=== PATIENT | female | born 1950 | race Hispanic/Latino ===

== ENCOUNTER 2017-12-08 07:49 | Emergency (ER) | payer OTHER, MEDICARE ==
[~2017-12-08 07:49] MED LIST: AEC81 PO; BIOT10005 PO; CARV25TA PO; FERR325T22 PO; INSU3INS5 SQ; METF10004 PO; MV,C1TAB21 PO; OMEP20TA25 PO; PREG75 PO
[2017-12-08] MEDS ORDERED: KETOROLAC TROMETHAMINE 15MG/ML ONE (08:24)
[2017-12-08] MEDS ORDERED: ONDANSETRON HCL 4 MG/2 ML VIAL ONE (08:24)
[2017-12-08] MEDS ORDERED: MORPHINE SULFATE 8 MG/ML VIAL ONE (08:25)
[2017-12-08 08:30] LABS: BASOPHILS % (AUTO) 5.7 % (0.0-5.0); EOSINOPHILS % (AUTO) 1.6 % (0.0-8.0); MEAN CORPUSCULAR HEMOGLOBIN 32.4 pg (27.0-33.0); MEAN CORPUSCULAR HGB CONC 34.1 g/dL (32.0-36.0); MONOCYTES % (AUTO) 7.4 % (3.0-13.0); NEUTROPHILS % (AUTO) 77.9 % (40.0-77.0); PLATELET COUNT (AUTO) 356 K/uL (130-400); RED BLOOD CELL COUNT(AUTO) 3.89 MIL/uL (4.00-5.50); WHITE BLOOD COUNT (AUTO) 12.2 K/uL (4.8-10.8)
[2017-12-08 08:33] LABS: LYMPHOCYTES % (AUTO) 7.4 % (21.0-51.0)
[2017-12-08 08:35] LABS: CREATININE 1.4 mg/dL (0.5-1.5); POTASSIUM 3.6 mmol/L (3.5-5.1)
[2017-12-08 08:35] LABS: APPEARANCE,URINE CLEAR (CLEAR); BILIRUBIN,URINE NEGATIVE (NEGATIVE); COLOR,URINE YELLOW (YELLOW); GLUCOSE, URINE (UA) >=1000 mg/dL (NEGATIVE); KETONES,URINE NEGATIVE (NEGATIVE); LEUKOCYTE ESTERASE ,URINE NEGATIVE (NEGATIVE); NITRATE,URINE NEGATIVE (NEGATIVE); OCCULT BLOOD,URINE NEGATIVE (NEGATIVE); PH,URINE 6.5 (5.0-8.0); PROTEIN,URINE 30 (NEGATIVE); UROBILINOGEN,URINE 0.2 mg/dL (0.2-1.0)
[2017-12-08 08:41] LABS: ALBUMIN 3.8 g/dL (3.5-5.0); BILIRUBIN,TOTAL 0.4 mg/dL (0.2-1.0); TOTAL PROTEIN, SERUM 8.5 g/dL (6.0-8.3)
[2017-12-08 09:18] LABS: BACTERIA,URINE None Seen /HPF (None Seen); RBC,URINE None Seen /HPF (0-1); SQUAMOUS EPITHELIAL CELL,UR Rare /LPF (0-2); WBC,URINE None Seen /HPF (0-1)
[2017-12-08] MEDS ORDERED: ORPHENADRINE CITRATE 30 MG/ML ML ONE (09:24)
== END 2017-12-08 10:42 | disposition home or self-care (01) ==
LOC: EDH 07:49
DX: M54.32 Sciatica, left side (principal); E11.9 Type 2 diabetes mellitus without complications; I10 Essential (primary) hypertension; Z79.4 Long term (current) use of insulin
CPT/HCPCS: 36415; 72170; 80053; 81001; 85025; 96372; 96374; 96375; 99285; J1885; J2270; J2360; J2405

== ENCOUNTER 2018-01-19 21:03 | Observation (INO) | payer OTHER, MEDICARE ==
[~2018-01-19] VITALS: Ht 160 cm; Wt 72.2 kg
[2018-01-19] MEDS ORDERED: ASPIRIN 325 MG TABLET ONE (21:09)
[2018-01-19 21:32] LABS: BASOPHILS % (AUTO) 0.5 % (0.0-5.0); EOSINOPHILS % (AUTO) 2.2 % (0.0-8.0); HEMATOCRIT 34.5 % (36-48); LYMPHOCYTES % (AUTO) 40.6 % (21.0-51.0); MEAN CORPUSCULAR HEMOGLOBIN 33.3 pg (27.0-33.0); MEAN CORPUSCULAR HGB CONC 34.9 g/dL (32.0-36.0); MEAN CORPUSCULAR VOLUME 95.5 fL (79-99); MONOCYTES % (AUTO) 9.2 % (3.0-13.0); NEUTROPHILS % (AUTO) 47.5 % (40.0-77.0); NUCLEATED RED BLOOD CELLS 0.2 % (0.0-0.19); PLATELET COUNT (AUTO) 371 K/uL (130-400); RED BLOOD CELL COUNT(AUTO) 3.61 MIL/uL (4.00-5.50); RED CELL DISTRIBUTION WIDTH 14.1 % (11.0-15.5); WHITE BLOOD COUNT (AUTO) 11.4 K/uL (4.8-10.8)
[2018-01-19 21:47] LABS: INR 0.95 (0.85-1.15); PARTIAL THROMBOPLASTIN TIME 23.8 SEC (26.3-35.5)
[2018-01-19 21:52] LABS: CREATININE 1.8 mg/dL (0.5-1.5); POTASSIUM 3.8 mmol/L (3.5-5.1)
[2018-01-19 22:00] LABS: B-TYPE NATRIURETIC PEPTIDE 30 pg/mL (0-100)
[2018-01-19 22:13] LABS: ALBUMIN 3.7 g/dL (3.5-5.0); BILIRUBIN,TOTAL 0.3 mg/dL (0.2-1.0); CREATINE KINASE MB 0.9 ng/mL (0.5-3.6); TOTAL PROTEIN, SERUM 8.3 g/dL (6.0-8.3)
[2018-01-20] MEDS ORDERED: ONDANSETRON HCL 4 MG/2 ML VIAL IV PRN (02:00)
[2018-01-20] MEDS ORDERED: ACETAMINOPHEN 325 MG TAB PO PRN (02:00)
[2018-01-20] MEDS ORDERED: MORPHINE SULFATE 2 MG/ML 1ML SYG IV PRN (02:00)
[2018-01-20] MEDS ORDERED: HYDRALAZINE HCL 20 MG/ML VIAL IV PRN (02:00)
[2018-01-20] MEDS ORDERED: NITROGLYCERIN 0.4 MG SL TAB SL PRN ×2 (02:00→15:00)
[2018-01-20] MEDS ORDERED: ZOLPIDEM TARTRATE 5 MG TAB PO PRN (02:00)
[2018-01-20 06:07] LABS: BASOPHILS % (AUTO) 0.6 % (0.0-5.0); EOSINOPHILS % (AUTO) 3.1 % (0.0-8.0); HEMATOCRIT 31.2 % (36-48); LYMPHOCYTES % (AUTO) 44.5 % (21.0-51.0); MEAN CORPUSCULAR HEMOGLOBIN 32.9 pg (27.0-33.0); MEAN CORPUSCULAR VOLUME 94.2 fL (79-99); MONOCYTES % (AUTO) 9.2 % (3.0-13.0); NEUTROPHILS % (AUTO) 42.6 % (40.0-77.0); NUCLEATED RED BLOOD CELLS 0.1 % (0.0-0.19); PLATELET COUNT (AUTO) 366 K/uL (130-400); RED BLOOD CELL COUNT(AUTO) 3.32 MIL/uL (4.00-5.50); RED CELL DISTRIBUTION WIDTH 13.8 % (11.0-15.5); WHITE BLOOD COUNT (AUTO) 9.5 K/uL (4.8-10.8)
[2018-01-20 06:33] LABS: CREATININE 1.4 mg/dL (0.5-1.5); MAGNESIUM 1.6 mg/dL (1.80-2.40); PHOSPHORUS 3.5 mg/dL (2.5-4.9); POTASSIUM 3.5 mmol/L (3.5-5.1); THYROID STIMULATING HORMONE 2.2 uIU/mL (0.36-3.74)
[2018-01-20 06:53] LABS: CREATINE KINASE MB < 0.5 ng/mL (0.5-3.6); CREATINE KINASE, TOTAL 157 U/L (21-232); MYOGLOBIN 50 ng/mL (10-92); TROPONIN I < 0.04 ng/mL (0.00-0.06)
[2018-01-20] MEDS ORDERED: ASPIRIN 81MG TAB.CHEW PO SCH (09:00)
[2018-01-20] MEDS ORDERED: CLOPIDOGREL BISULFATE 75 MG TAB PO SCH (09:00)
[2018-01-20] MEDS ORDERED: CARVEDILOL 3.125 MG TABLET PO SCH (09:00)
[2018-01-20] MEDS ORDERED: ENOXAPARIN SODIUM 40 MG/0.4 ML SYRINGE SQ SCH (09:00)
[2018-01-20] MEDS ORDERED: PANTOPRAZOLE SODIUM 40 MG TABLET.DR PO SCH (09:00)
[2018-01-20] MEDS ORDERED: ASPIRIN 81MG TAB.CHEW ONE (10:31)
[2018-01-20] MEDS ORDERED: MAGNESIUM 2GM PREMIX 50ML 50 ML IV PRN (12:00)
[2018-01-20] MEDS ORDERED: ENOXAPARIN SODIUM 40 MG/0.4 ML SYRINGE SQ ONE (12:27)
[2018-01-20] MEDS ORDERED: CLOPIDOGREL BISULFATE 75 MG TAB ONE (12:27)
[2018-01-20] MEDS ORDERED: CARVEDILOL 3.125 MG TABLET PO ONE (12:28)
[2018-01-20] MEDS: 1/2 NORMAL SALINE 1,000 ML IV SCH ×2 (13:23→15:20)
[2018-01-20 13:26] VITALS: BP 168/95
[2018-01-20] MEDS ORDERED: FURO20TA4 PO (13:26)
[2018-01-20] MEDS ORDERED: CHOL200074 PO (13:26)
[2018-01-20] MEDS ORDERED: INSU3INS5 SQ (13:26)
[2018-01-20] MEDS ORDERED: ICOS1CAP PO (13:26)
[2018-01-20] MEDS ORDERED: PRAV10TA39 PO (13:26)
[2018-01-20] MEDS ORDERED: AMLO1CAP11 PO (13:26)
[2018-01-20] MEDS ORDERED: EMPA10TA PO (13:26)
[2018-01-20 13:43] LABS: CREATINE KINASE MB < 0.5 ng/mL (0.5-3.6); CREATINE KINASE, TOTAL 139 U/L (21-232); MYOGLOBIN 53 ng/mL (10-92); TROPONIN I < 0.04 ng/mL (0.00-0.06)
[2018-01-20] MEDS ORDERED: PREGABALIN 75 MG CAPSULE PO PRN (15:45)
[2018-01-20 16:00] VITALS: BP 146/77
[2018-01-20] MEDS ORDERED: METFORMIN HCL 500 MG TABLET PO SCH (17:00)
[2018-01-20] MEDS ORDERED: CARVEDILOL 25 MG TABLET PO SCH ×2 (21:00)
[2018-01-21] MEDS ORDERED: ATORVASTATIN CALCIUM 20 MG TABLET PO SCH (09:00)
[2018-01-21] MEDS ORDERED: FUROSEMIDE 20 MG TABLET PO SCH (09:00)
[2018-01-21] MEDS ORDERED: AMLODIPINE-BENAZEPRIL 5-10 MG PO SCH (09:00)
[2018-01-21] MEDS ORDERED: ASPIRIN 81 MG EC TAB PO SCH (09:00)
[2018-01-21] MEDS ORDERED: PANTOPRAZOLE SODIUM 40 MG TABLET.DR PO SCH (09:00)
== END 2018-01-20 17:50 | disposition home or self-care (01) ==
LOC: EDH 21:03 → INTOOBSV 01-20 00:40 → EDHIP 01-20 00:40 → 2CH 01-20 11:21
PROVIDERS: ADMIT Family Medicine; ATTEND Family Medicine
DX: I21.4 Non-ST elevation (NSTEMI) myocardial infarction (principal); I10 Essential (primary) hypertension; E78.5 Hyperlipidemia, unspecified; E11.65 Type 2 diabetes mellitus with hyperglycemia; E66.01 Morbid (severe) obesity due to excess calories; K21.9 Gastro-esophageal reflux disease without esophagitis; K74.60 Unspecified cirrhosis of liver; Z82.0 Family history of epilepsy and other diseases of the nervous system; Z82.3 Family history of stroke; Z82.49 Family history of ischemic heart disease and other diseases of the circulatory system; Z82.5 Family history of asthma and other chronic lower respiratory diseases; Z83.3 Family history of diabetes mellitus; Z90.81 Acquired absence of spleen; Z86.19 Personal history of other infectious and parasitic diseases; Z90.49 Acquired absence of other specified parts of digestive tract; Z79.4 Long term (current) use of insulin; Z79.82 Long term (current) use of aspirin
CPT/HCPCS: 36415 ×2; 71045; 80048; 80053; 80061; 82550 ×3; 82553 ×3; 82948; 83735; 83874 ×3; 83880; 84100; 84443; 84484 ×3; 85025 ×2; 85610; 85730; 93005 ×3; 93306; 96365; 96375; 99285; A4510; G0378 ×17; J1650; J3475

== ENCOUNTER 2018-03-19 21:41 | Emergency (ER) | payer MEDICARE, OTHER ==
[~2018-03-19 21:41] MED LIST changes: +AMLO1CAP11 PO; -BIOT10005 PO; +CHOL200074 PO; +EMPA10TA PO; -FERR325T22 PO; +FURO20TA4 PO; +ICOS1CAP PO; +PRAV10TA39 PO
[2018-03-19 22:28] LABS: BASOPHILS % (AUTO) 0.9 % (0.0-5.0); EOSINOPHILS % (AUTO) 1.9 % (0.0-8.0); HEMATOCRIT 34.8 % (36-48); LYMPHOCYTES % (AUTO) 40.3 % (21.0-51.0); MEAN CORPUSCULAR HEMOGLOBIN 33.6 pg (27.0-33.0); MEAN CORPUSCULAR HGB CONC 35.7 g/dL (32.0-36.0); MEAN CORPUSCULAR VOLUME 94.3 fL (79-99); MONOCYTES % (AUTO) 9.6 % (3.0-13.0); NEUTROPHILS % (AUTO) 47.3 % (40.0-77.0); NUCLEATED RED BLOOD CELLS 0.1 % (0.0-0.19); PLATELET COUNT (AUTO) 361 K/uL (130-400); RED BLOOD CELL COUNT(AUTO) 3.69 MIL/uL (4.00-5.50); RED CELL DISTRIBUTION WIDTH 14.1 % (11.0-15.5); WHITE BLOOD COUNT (AUTO) 9.2 K/uL (4.8-10.8)
[2018-03-19] MEDS ORDERED: INSULIN HUMULIN R 100 UNIT/ML 3ML ONE (22:46)
[2018-03-19 22:47] LABS: ALBUMIN 3.6 g/dL (3.5-5.0); BILIRUBIN,TOTAL 0.3 mg/dL (0.2-1.0); CREATININE 1.5 mg/dL (0.5-1.5); POTASSIUM 4.2 mmol/L (3.5-5.1); TOTAL PROTEIN, SERUM 8.4 g/dL (6.0-8.3)
[2018-03-19 22:51] LABS: B-TYPE NATRIURETIC PEPTIDE 72 pg/mL (0-100)
[2018-03-19 22:54] LABS: APPEARANCE,URINE Clear (CLEAR); BILIRUBIN,URINE Negative (NEGATIVE); COLOR,URINE Yellow (YELLOW); GLUCOSE, URINE (UA) >=1000 mg/dL (NEGATIVE); KETONES,URINE Negative (NEGATIVE); LEUKOCYTE ESTERASE ,URINE Negative (NEGATIVE); NITRATE,URINE Negative (NEGATIVE); OCCULT BLOOD,URINE Negative (NEGATIVE); PROTEIN,URINE POS 1+ (NEGATIVE); UROBILINOGEN,URINE 0.2 mg/dL (0.2-1.0)
[2018-03-19 23:05] LABS: BACTERIA,URINE Few /HPF (None Seen)
[2018-03-20] MEDS ORDERED: INSULIN HUMULIN R 100 UNIT/ML 3ML ONE (00:13)
== END 2018-03-20 00:49 | disposition home or self-care (01) ==
LOC: EDH 21:41
DX: E11.65 Type 2 diabetes mellitus with hyperglycemia (principal); I10 Essential (primary) hypertension; Z86.19 Personal history of other infectious and parasitic diseases; Z90.49 Acquired absence of other specified parts of digestive tract; Z79.4 Long term (current) use of insulin
CPT/HCPCS: 36415; 80053; 81001; 82948 ×4; 83605; 83690; 83880; 84484; 85025; 93005; 96361; 96374; 96376; 99285; J1815 ×2

== ENCOUNTER 2018-08-30 13:55 | Emergency (ER) | payer OTHER ==
[~2018-08-30 13:55] MED LIST changes: +METF-446 PO; -METF10004 PO
[2018-08-30] MEDS ORDERED: KETOROLAC TROMETHAMINE 30MG/ML ONE (14:24)
[2018-08-30] MEDS ORDERED: CYCLOBENZAPRINE HCL 10 MG TABLET ONE (14:25)
[2018-08-30 15:42] LABS: BASOPHILS % (AUTO) 0.3 % (0.0-5.0); EOSINOPHILS % (AUTO) 1.6 % (0.0-8.0); HEMATOCRIT 34.2 % (36-48); LYMPHOCYTES % (AUTO) 28.8 % (21.0-51.0); MEAN CORPUSCULAR HEMOGLOBIN 32.1 pg (27.0-33.0); MEAN CORPUSCULAR VOLUME 94.6 fL (79-99); NEUTROPHILS % (AUTO) 61.3 % (40.0-77.0); PLATELET COUNT (AUTO) 352 K/uL (130-400); RED BLOOD CELL COUNT(AUTO) 3.62 MIL/uL (4.00-5.50); RED CELL DISTRIBUTION WIDTH 14.3 % (11.0-15.5); WHITE BLOOD COUNT (AUTO) 11.7 K/uL (4.8-10.8)
[2018-08-30 15:58] LABS: CREATININE 1.5 mg/dL (0.5-1.5); POTASSIUM 3.5 mmol/L (3.5-5.1)
[2018-08-30 16:03] LABS: ALBUMIN 3.2 g/dL (3.5-5.0); BILIRUBIN,TOTAL 0.3 mg/dL (0.2-1.0); TOTAL PROTEIN, SERUM 7.9 g/dL (6.0-8.3)
[2018-08-30 16:07] LABS: B-TYPE NATRIURETIC PEPTIDE 73 pg/mL (0-100)
== END 2018-08-30 16:38 | disposition home or self-care (01) ==
LOC: EDH 13:55
DX: R07.89 Other chest pain (principal); M25.511 Pain in right shoulder; E11.9 Type 2 diabetes mellitus without complications; I10 Essential (primary) hypertension; Z88.6 Allergy status to analgesic agent; Z98.890 Other specified postprocedural states; Z79.899 Other long term (current) drug therapy; Z86.19 Personal history of other infectious and parasitic diseases
CPT/HCPCS: 36415; 71045; 73030; 80053; 82550; 83880; 84484; 85025; 93005; 94761; J1885

== ENCOUNTER 2020-01-10 12:01 | Emergency (ER) | payer OTHER ==
[~2020-01-10 12:01] MED LIST changes: +AMLO-73 PO; -AMLO1CAP11 PO
[2020-01-10 12:34] LABS: BASOPHILS % (AUTO) 0.4 % (0.0-5.0); EOSINOPHILS % (AUTO) 1.8 % (0.0-8.0); HEMATOCRIT 36.1 % (36-48); LYMPHOCYTES % (AUTO) 31.3 % (21.0-51.0); MEAN CORPUSCULAR HEMOGLOBIN 31.1 pg (27.0-33.0); MEAN CORPUSCULAR HGB CONC 34.1 g/dL (32.0-36.0); MEAN CORPUSCULAR VOLUME 91.4 fL (79-99); NEUTROPHILS % (AUTO) 57.9 % (40.0-77.0); PLATELET COUNT (AUTO) 326 K/uL (130-400); RED BLOOD CELL COUNT(AUTO) 3.95 MIL/uL (4.00-5.50); RED CELL DISTRIBUTION WIDTH 13.3 % (11.0-15.5)
[2020-01-10 12:53] LABS: INR 0.92 (0.85-1.15); PARTIAL THROMBOPLASTIN TIME 24.3 SEC (26.3-35.5); PROTHROMBIN TIME 9.7 SEC (9.6-11.6)
[2020-01-10] MEDS ORDERED: SODIUM CHLORIDE 0.9% 1000ML 1,000 ML IV ONE (13:01)
[2020-01-10] MEDS ORDERED: INSULIN HUMULIN R 100 UNIT/ML 3ML ONE (13:01)
[2020-01-10 13:11] LABS: ALBUMIN 3.4 g/dL (3.5-5.0); BILIRUBIN,TOTAL 0.3 mg/dL (0.2-1.0); CREATININE 1.5 mg/dL (0.5-1.5); TOTAL PROTEIN, SERUM 7.9 g/dL (6.0-8.3)
[2020-01-10 13:19] LABS: APPEARANCE,URINE Clear (CLEAR); BILIRUBIN,URINE Negative (NEGATIVE); COLOR,URINE Yellow (YELLOW); GLUCOSE, URINE (UA) >=1000 mg/dL (NEGATIVE); KETONES,URINE Negative (NEGATIVE); LEUKOCYTE ESTERASE ,URINE Negative (NEGATIVE); NITRATE,URINE Negative (NEGATIVE); OCCULT BLOOD,URINE Negative (NEGATIVE); PH,URINE 5.5 (5.0-8.0); PROTEIN,URINE Negative (NEGATIVE); UROBILINOGEN,URINE 0.2 mg/dL (0.2-1.0)
[2020-01-10 13:31] LABS: BACTERIA,URINE Rare /HPF (None Seen); RBC,URINE 0-1 /HPF (0-1); SQUAMOUS EPITHELIAL CELL,UR Rare /HPF (0-2); WBC,URINE 0-1 /HPF (0-1)
[2020-01-10 13:35] LABS: B-TYPE NATRIURETIC PEPTIDE 95 pg/mL (0-100)
== END 2020-01-10 16:18 | disposition home or self-care (01) ==
LOC: EDH 12:01
DX: E11.65 Type 2 diabetes mellitus with hyperglycemia (principal); E86.0 Dehydration; K74.69 Other cirrhosis of liver; I10 Essential (primary) hypertension; Z90.49 Acquired absence of other specified parts of digestive tract; Z98.890 Other specified postprocedural states; Z88.2 Allergy status to sulfonamides
CPT/HCPCS: 36415; 71045; 80053; 81001; 82140; 82150; 82550; 82948 ×2; 83605; 83690; 83880; 84484; 85025; 85610; 85730; 87040 ×2; 87804 ×2; 93005; 96374; 99285; J1815; J7030

== ENCOUNTER → 2020-02-01 | Outpatient (CLI) | payer OTHER | END | disposition home or self-care (01) | LOC: RAH 10:47 | PROVIDERS: ATTEND Family Medicine | DX: Z12.31 Encounter for screening mammogram for malignant neoplasm of breast (principal) | CPT/HCPCS: 77067 ==

== ENCOUNTER → 2020-10-10 | Outpatient (CLI) | payer OTHER, MEDICARE | END | disposition home or self-care (01) | LOC: SHCH 10:00 | PROVIDERS: ATTEND Internal Medicine Cardiovascular Disease | DX: I10 Essential (primary) hypertension (principal) | CPT/HCPCS: 93306; 93356 ==

== ENCOUNTER → 2020-10-14 | Outpatient (CLI) | payer OTHER, MEDICARE ==
[~2020-10-14] MED LIST changes: +REGADENOSON 0.4 MG/5 ML PF SYG IVP SCH
== END | disposition home or self-care (01) ==
LOC: SHCH 07:51
PROVIDERS: ATTEND Internal Medicine Cardiovascular Disease
DX: R55 Syncope and collapse (principal); E78.5 Hyperlipidemia, unspecified
CPT/HCPCS: 78452; 93017; 96374; A9500 ×2; J2785

== ENCOUNTER → 2021-02-08 | Outpatient (CLI) | payer OTHER, MEDICARE ==
[~2021-02-08] MED LIST changes: -REGADENOSON 0.4 MG/5 ML PF SYG IVP SCH
== END | disposition home or self-care (01) ==
LOC: RAH 08:16
PROVIDERS: ATTEND Internal Medicine
DX: Z12.31 Encounter for screening mammogram for malignant neoplasm of breast (principal)
CPT/HCPCS: 77067

== ENCOUNTER 2022-02-19 16:33 | Emergency (ER) | payer OTHER, MEDICARE ==
[~2022-02-19] VITALS: Ht 160 cm; Wt 73.0 kg
[~2022-02-19 16:33] MED LIST changes: +OMEP20TA20 PO; -OMEP20TA25 PO
[2022-02-19 16:57] LABS: APPEARANCE,URINE Clear (CLEAR); BILIRUBIN,URINE Negative (NEGATIVE); COLOR,URINE Dark Yellow (YELLOW); GLUCOSE, URINE (UA) Negative (NEGATIVE); KETONES,URINE Trace mg/dL (NEGATIVE); LEUKOCYTE ESTERASE ,URINE Small (NEGATIVE); NITRATE,URINE Negative (NEGATIVE); OCCULT BLOOD,URINE Negative (NEGATIVE); PROTEIN,URINE Trace mg/dL (NEGATIVE)
[2022-02-19 17:06] LABS: BACTERIA,URINE Few /HPF (None Seen); RBC,URINE 0-1 /HPF (0-1); SQUAMOUS EPITHELIAL CELL,UR Few /HPF (0-2)
[2022-02-19 17:07] LABS: MUCUS,URINE Rare LPF (None Seen)
[2022-02-19 17:41] LABS: MEAN CORPUSCULAR HEMOGLOBIN 30.8 pg (27.0-33.0); MEAN CORPUSCULAR HGB CONC 33.1 g/dL (32.0-36.0); MEAN CORPUSCULAR VOLUME 92.8 fL (79-99); PLATELET COUNT (AUTO) 268 K/uL (130-400); RED BLOOD CELL COUNT(AUTO) 3.77 MIL/uL (4.00-5.50); RED CELL DISTRIBUTION WIDTH 13.6 % (11.0-15.5); WHITE BLOOD COUNT (AUTO) 10.3 K/uL (4.8-10.8)
[2022-02-19 17:58] LABS: ALBUMIN 3.7 g/dL (3.5-5.0); BAND NEUTROPHILS % (MANUAL) 2 % (0-2); BILIRUBIN,TOTAL 0.3 mg/dL (0.2-1.0); EOSINOPHILS % (MANUAL) 2 % (1-6); LYMPHOCYTES % (MANUAL) 35 % (22-44); MAN.DIFF COMMENT-IMPRESSION MANUAL DIFFERENTIAL; MONOCYTES % (MANUAL) 7 % (2-9); SEGMENTED NEUTROPHILS % 54 % (40-70); TOTAL PROTEIN, SERUM 7.9 g/dL (6.0-8.3)
[2022-02-19 18:24] LABS: MAGNESIUM 2.3 mg/dL (1.80-2.40); THYROID STIMULATING HORMONE 1.47 uIU/mL (0.36-3.74)
[2022-02-19 18:59] VITALS: BP 128/78
== END 2022-02-19 19:31 | disposition home or self-care (01) ==
LOC: EDH 16:33
DX: G47.00 Insomnia, unspecified (principal); R00.2 Palpitations; R53.1 Weakness; R07.89 Other chest pain; R42 Dizziness and giddiness; R55 Syncope and collapse; E11.9 Type 2 diabetes mellitus without complications; E78.00 Pure hypercholesterolemia, unspecified; I10 Essential (primary) hypertension; F41.9 Anxiety disorder, unspecified; Z79.4 Long term (current) use of insulin; Z79.82 Long term (current) use of aspirin; Z79.899 Other long term (current) drug therapy; Z88.8 Allergy status to other drugs, medicaments and biological substances; Z90.49 Acquired absence of other specified parts of digestive tract
CPT/HCPCS: 36415; 71045; 80053; 81001; 82550; 83735; 83880; 84443; 84484; 85025; 93005

== ENCOUNTER 2022-04-01 21:19 | Observation (INO) | payer OTHER, MEDICARE ==
[~2022-04-01] VITALS: Ht 160 cm; Wt 74.3 kg
[2022-04-01 21:44] LABS: BASOPHILS % (AUTO) 0.3 % (0.0-5.0); EOSINOPHILS % (AUTO) 1.8 % (0.0-8.0); HEMATOCRIT 34.5 % (36-48); LYMPHOCYTES % (AUTO) 39.4 % (21.0-51.0); MEAN CORPUSCULAR HEMOGLOBIN 30.6 pg (27.0-33.0); MEAN CORPUSCULAR VOLUME 92.7 fL (79-99); MONOCYTES % (AUTO) 7.7 % (3.0-13.0); NEUTROPHILS % (AUTO) 50.2 % (40.0-77.0); PLATELET COUNT (AUTO) 292 K/uL (130-400); RED BLOOD CELL COUNT(AUTO) 3.72 MIL/uL (4.00-5.50); RED CELL DISTRIBUTION WIDTH 13.3 % (11.0-15.5); WHITE BLOOD COUNT (AUTO) 11.2 K/uL (4.8-10.8)
[2022-04-01 21:48] LABS: APPEARANCE,URINE Clear (CLEAR); BILIRUBIN,URINE Negative (NEGATIVE); COLOR,URINE Yellow (YELLOW); GLUCOSE, URINE (UA) >=1000 mg/dL (NEGATIVE); KETONES,URINE Negative (NEGATIVE); LEUKOCYTE ESTERASE ,URINE Negative (NEGATIVE); NITRATE,URINE Negative (NEGATIVE); OCCULT BLOOD,URINE Negative (NEGATIVE); PROTEIN,URINE Negative (NEGATIVE); UROBILINOGEN,URINE 0.2 mg/dL (0.2-1.0)
[2022-04-01 21:56] LABS: BACTERIA,URINE Rare /HPF (None Seen); RBC,URINE 0-1 /HPF (0-1); SQUAMOUS EPITHELIAL CELL,UR Rare /HPF (0-2); WBC,URINE 0-1 /HPF (0-1)
[2022-04-01 22:06] LABS: CREATININE 1.9 mg/dL (0.5-1.5); POTASSIUM 4.1 mmol/L (3.5-5.1)
[2022-04-01 22:07] LABS: B-TYPE NATRIURETIC PEPTIDE 64 pg/mL (0-100)
[2022-04-01 22:17] LABS: ALBUMIN 3.7 g/dL (3.5-5.0); BILIRUBIN,TOTAL 0.3 mg/dL (0.2-1.0); TOTAL PROTEIN, SERUM 8.2 g/dL (6.0-8.3)
[2022-04-01] MEDS ORDERED: INSULIN HUMULIN R 100 UNIT/ML 3ML IV ONE (23:00)
[2022-04-01] MEDS ORDERED: 0.9% NACL 500ML IV.SOLN 500 ML IV ONE (23:00)
[2022-04-02] MEDS ORDERED: INSULIN HUMULIN R 100 UNIT/ML 3ML SQ PRN (03:30)
[2022-04-02] MEDS ORDERED: ONDANSETRON ODT 4MG TAB SL PRN (03:30)
[2022-04-02] MEDS: 0.9%NACL 1000ML 1,000 ML IV SCH ×3 (04:02→23:21)
[2022-04-02 06:40] LABS: BASOPHILS % (AUTO) 0.2 % (0.0-5.0); HEMATOCRIT 31.6 % (36-48); LYMPHOCYTES % (AUTO) 37.8 % (21.0-51.0); MEAN CORPUSCULAR HEMOGLOBIN 31.8 pg (27.0-33.0); MEAN CORPUSCULAR HGB CONC 34.2 g/dL (32.0-36.0); MEAN CORPUSCULAR VOLUME 92.9 fL (79-99); MONOCYTES % (AUTO) 10.3 % (3.0-13.0); NEUTROPHILS % (AUTO) 48.4 % (40.0-77.0); PLATELET COUNT (AUTO) 280 K/uL (130-400); RED CELL DISTRIBUTION WIDTH 13.6 % (11.0-15.5); WHITE BLOOD COUNT (AUTO) 9.5 K/uL (4.8-10.8)
[2022-04-02 06:47] LABS: CREATININE 1.4 mg/dL (0.5-1.5); POTASSIUM 4.1 mmol/L (3.5-5.1)
[2022-04-02 06:53] LABS: HEMOGLOBIN A1C 8.8 % (4.0-6.0)
[2022-04-02] MEDS: ENOXAPARIN SODIUM 30 MG/0.3 ML SQ SCH (08:30)
[2022-04-02 13:20] VITALS: BP 149/67
[2022-04-02] MEDS ORDERED: INSU200I SQ (13:51)
[2022-04-02] MEDS ORDERED: SITA50TA PO (13:51)
[2022-04-02] MEDS ORDERED: ATOR10 PO (13:51)
[2022-04-02] MEDS ORDERED: ASPI-1026 PO (13:51)
[2022-04-02] MEDS ORDERED: FISH1CAP50 PO (13:51)
[2022-04-02] MEDS ORDERED: INSLAN SQ (13:51)
[2022-04-02 16:00] VITALS: BP 130/64
[2022-04-02] MEDS ORDERED: INSULIN GLARGINE 100 UNITS/ML 10 ML VIAL SQ ONE (16:30)
[2022-04-02] MEDS: INSULIN HUMULIN R 100 UNIT/ML 3ML SQ SCH ×2 (16:55→20:55)
[2022-04-02 19:00] VITALS: BP 138/60
[2022-04-02] MEDS: ACETAMINOPHEN 325 MG TAB PO PRN (20:59)
[2022-04-03 00:35] VITALS: BP 143/73
[2022-04-03 04:40] VITALS: BP 138/71
[2022-04-03 05:19] LABS: HEMATOCRIT 33.5 % (36-48); MEAN CORPUSCULAR HGB CONC 33.7 g/dL (32.0-36.0); MEAN CORPUSCULAR VOLUME 91.8 fL (79-99); RED BLOOD CELL COUNT(AUTO) 3.65 MIL/uL (4.00-5.50); RED CELL DISTRIBUTION WIDTH 13.2 % (11.0-15.5); WHITE BLOOD COUNT (AUTO) 8.9 K/uL (4.8-10.8)
[2022-04-03 05:28] LABS: CREATININE 1.1 mg/dL (0.5-1.5); MAGNESIUM 1.8 mg/dL (1.80-2.40); POTASSIUM 4.2 mmol/L (3.5-5.1)
[2022-04-03 07:00] VITALS: BP 151/65
[2022-04-03] MEDS: INSULIN HUMULIN R 100 UNIT/ML 3ML SQ SCH ×7 (07:28→21:21)
[2022-04-03] MEDS ORDERED: INSULIN GLARGINE 100 UNITS/ML 10 ML VIAL SQ SCH (09:00)
[2022-04-03] MEDS: ENOXAPARIN SODIUM 30 MG/0.3 ML SQ SCH (09:42)
[2022-04-03 11:00] VITALS: BP 146/69
[2022-04-03] MEDS: 0.9%NACL 1000ML 1,000 ML IV SCH (12:20)
[2022-04-03 16:30] VITALS: BP 133/73
[2022-04-03] MEDS: ACETAMINOPHEN 325 MG TAB PO PRN (17:09)
[2022-04-03 19:00] VITALS: BP 148/73
[2022-04-04] VITALS: BP 133/59
[2022-04-04 04:00] VITALS: BP 134/56
[2022-04-04] MEDS: INSULIN HUMULIN R 100 UNIT/ML 3ML SQ SCH ×4 (05:17→12:32)
[2022-04-04 07:21] VITALS: BP 130/58
[2022-04-04] MEDS ORDERED: INSULIN GLARGINE 100 UNITS/ML 10 ML VIAL SQ SCH (09:00)
[2022-04-04] MEDS: ENOXAPARIN SODIUM 30 MG/0.3 ML SQ SCH (09:07)
[2022-04-04] MEDS: 0.9%NACL 1000ML 1,000 ML IV SCH (09:15)
[2022-04-04 11:27] VITALS: BP 135/77
[2022-04-04] MEDS: ACETAMINOPHEN 325 MG TAB PO PRN (12:21)
== END 2022-04-04 17:40 | disposition home or self-care (01) ==
LOC: EDH 21:19 → EDHIP 04-02 03:14 → 3AH 04-02 13:05
PROVIDERS: ADMIT Internal Medicine Infectious Disease; ATTEND Internal Medicine Infectious Disease
DX: E83.52 Hypercalcemia (principal); N17.9 Acute kidney failure, unspecified; D72.829 Elevated white blood cell count, unspecified; E86.0 Dehydration; I95.1 Orthostatic hypotension; E86.9 Volume depletion, unspecified; E11.65 Type 2 diabetes mellitus with hyperglycemia; R53.1 Weakness; E66.9 Obesity, unspecified; E11.649 Type 2 diabetes mellitus with hypoglycemia without coma; I10 Essential (primary) hypertension; E78.5 Hyperlipidemia, unspecified; Z79.4 Long term (current) use of insulin; Z79.84 Long term (current) use of oral hypoglycemic drugs; Z90.81 Acquired absence of spleen; Z90.49 Acquired absence of other specified parts of digestive tract; Z79.899 Other long term (current) drug therapy; Z98.890 Other specified postprocedural states; Z98.891 History of uterine scar from previous surgery; Z79.82 Long term (current) use of aspirin; Z68.29 Body mass index [BMI] 29.0-29.9, adult
CPT/HCPCS: 36415 ×3; 70450; 71045; 80048 ×2; 80053; 81001; 82550; 82948 ×9; 83036; 83605; 83735 ×3; 83880; 84484; 85025 ×2; 85027; 87040 ×2; 87077; 87186; 93005; 96361 ×6; 96372 ×3; 96374; 99285; G0378 ×62; J1650 ×3; J1815 ×10; J7030 ×3; J7040

== ENCOUNTER 2022-04-22 13:21 | Emergency (ER) | payer OTHER, MEDICARE ==
[~2022-04-22] VITALS: Ht 160 cm; Wt 73.0 kg
[~2022-04-22 13:21] MED LIST changes: -AEC81 PO; +ASPI-1026 PO; +ATOR10 PO; -EMPA10TA PO; +FISH1CAP50 PO; -ICOS1CAP PO; +INSLAN SQ; +INSU200I SQ; -INSU3INS5 SQ; -METF-446 PO; -PRAV10TA39 PO; -PREG75 PO
[2022-04-22] MEDS ORDERED: ACETAMINOPHEN 500 MG TABLET PO ONE (14:00)
[2022-04-22] MEDS ORDERED: NAPR-1180 PO (14:11)
[2022-04-22 14:20] VITALS: BP 119/74
== END 2022-04-22 14:23 | disposition home or self-care (01) ==
LOC: EDH 13:21
DX: S80.12XA Contusion of left lower leg, initial encounter (principal); M17.12 Unilateral primary osteoarthritis, left knee; E11.9 Type 2 diabetes mellitus without complications; I10 Essential (primary) hypertension; E78.5 Hyperlipidemia, unspecified; Z90.49 Acquired absence of other specified parts of digestive tract; Z98.890 Other specified postprocedural states; Z88.8 Allergy status to other drugs, medicaments and biological substances; Z79.899 Other long term (current) drug therapy; Z79.82 Long term (current) use of aspirin; Z79.4 Long term (current) use of insulin; W19.XXXA Unspecified fall, initial encounter; Y93.89 Activity, other specified; Y92.098 Other place in other non-institutional residence as the place of occurrence of the external cause; Y99.8 Other external cause status
CPT/HCPCS: 73562; 73590

== ENCOUNTER 2022-10-20 00:50 | Observation (INO) | payer OTHER, MEDICARE ==
[~2022-10-20] VITALS: Ht 160 cm; Wt 72.4 kg
[2022-10-20] VITALS (21 sets, daily range): BP systolic 104–141; BP diastolic 46–80
[~2022-10-20 00:50] MED LIST changes: +NAPR-1180 PO
[2022-10-20 01:19] LABS: BASOPHILS % (AUTO) 0.2 % (0.0-5.0); EOSINOPHILS % (AUTO) 2.2 % (0.0-8.0); HEMATOCRIT 30.5 % (36-48); LYMPHOCYTES % (AUTO) 34.4 % (21.0-51.0); MEAN CORPUSCULAR HEMOGLOBIN 31.7 pg (27.0-33.0); MEAN CORPUSCULAR HGB CONC 34.4 g/dL (32.0-36.0); MEAN CORPUSCULAR VOLUME 92.1 fL (79-99); MONOCYTES % (AUTO) 9.8 % (3.0-13.0); NEUTROPHILS % (AUTO) 53.1 % (40.0-77.0); PLATELET COUNT (AUTO) 269 K/uL (130-400); RED BLOOD CELL COUNT(AUTO) 3.31 MIL/uL (4.00-5.50); RED CELL DISTRIBUTION WIDTH 13.2 % (11.0-15.5); WHITE BLOOD COUNT (AUTO) 12.7 K/uL (4.8-10.8)
[2022-10-20 01:30] LABS: CREATININE 1.4 mg/dL (0.5-1.5); POTASSIUM 3.6 mmol/L (3.5-5.1)
[2022-10-20 01:34] LABS: ALBUMIN 3.1 g/dL (3.5-5.0); TOTAL PROTEIN, SERUM 7.1 g/dL (6.0-8.3)
[2022-10-20 01:47] LABS: INR 0.94 (0.85-1.15); PROTHROMBIN TIME 10.3 SEC (9.6-11.6)
[2022-10-20 01:49] LABS: PARTIAL THROMBOPLASTIN TIME 24.8 SEC (26.3-35.5)
[2022-10-20 02:56] LABS: APPEARANCE,URINE CLEAR (CLEAR); BACTERIA,URINE RARE /HPF (None Seen); BILIRUBIN,URINE NEGATIVE (NEGATIVE); GLUCOSE, URINE (UA) NEGATIVE (NEGATIVE); KETONES,URINE NEGATIVE (NEGATIVE); LEUKOCYTE ESTERASE ,URINE NEGATIVE Leu/uL (NEGATIVE); NITRATE,URINE NEGATIVE (NEGATIVE); OCCULT BLOOD,URINE NEGATIVE (NEGATIVE); PROTEIN,URINE NEGATIVE (NEGATIVE); SQUAMOUS EPITHELIAL CELL,UR RARE /HPF (0-2); UROBILINOGEN,URINE 0.2 mg/dL (0.2-1.0)
[2022-10-20 02:57] LABS: COLOR,URINE LIGHT-YELLOW (YELLOW)
[2022-10-20] MEDS ORDERED: MORPHINE 4 MG SYG IVP ONE (03:00)
[2022-10-20] MEDS ORDERED: ONDANSETRON 4MG INJ IVP ONE (03:00)
[2022-10-20] MEDS ORDERED: MORPHINE 2 MG SYG IVP PRN (03:00)
[2022-10-20] MEDS ORDERED: ZOSYN 3.375GM +NS 50ML IV ONE (03:00)
[2022-10-20] MEDS ORDERED: ONDANSETRON 4MG INJ IVP PRN ×2 (03:00→12:00)
[2022-10-20] MEDS ORDERED: 0.9%NACL 1000ML 2,000 ML IV ONE (03:00)
[2022-10-20] MEDS ORDERED: INSULIN HUMULIN R 100 UNIT/ML 3ML SQ PRN (03:00)
[2022-10-20] MEDS: ACETAMINOPHEN 325 MG TAB PO PRN ×2 (05:39→23:40)
[2022-10-20] MEDS: DEXTROSE 5 % AND 0.9 % NACL 1,000 ML IV SCH ×2 (05:39→16:25)
[2022-10-20] MEDS ORDERED: BUPIVACAINE/PF 0.25% 30ML VIAL IJ ONE (08:19)
[2022-10-20] MEDS ORDERED: MIDAZOLAM HCL 1 MG/ML 2ML VIAL ONE (10:59)
[2022-10-20] MEDS ORDERED: PROPOFOL 10 MG/ML 20ML VIAL IV ONE (10:59)
[2022-10-20] MEDS ORDERED: ROCURONIUM 10MG/1ML SYR 10 MG/ML ML ONE (11:03)
[2022-10-20] MEDS ORDERED: LIDOCAINE PF 100MG/5ML (2%) SYRINGE 5ML ONE (11:03)
[2022-10-20] MEDS ORDERED: FENTANYL CITRATE PF 50 MCG/1 ML 2ML VIAL ONE (11:05)
[2022-10-20] MEDS ORDERED: ONDANSETRON 4MG INJ ONE (11:11)
[2022-10-20] MEDS ORDERED: ZOSYN 3.375GM+NS 50ML 50 ML ONE (11:13)
[2022-10-20] MEDS ORDERED: NEOSTIGMINE 5MG/5ML SYR IV ONE (11:36)
[2022-10-20] MEDS ORDERED: GLYCOPYRROLATE 1 MG/5 ML SYRINGE ONE (11:37)
[2022-10-20] MEDS ORDERED: MORPHINE 4 MG SYG IV PRN (12:00)
[2022-10-20] MEDS: ZOSYN 3.375GM+NS 50ML 50 ML IV SCH ×2 (12:43→20:45)
[2022-10-20] MEDS: 0.9%NACL 1000ML 1,000 ML IV SCH (13:25)
[2022-10-21 03:52] VITALS: BP 128/64
[2022-10-21] MEDS: ZOSYN 3.375GM+NS 50ML 50 ML IV SCH (04:33)
[2022-10-21] MEDS: 0.9%NACL 1000ML 1,000 ML IV SCH (04:33)
[2022-10-21 06:43] LABS: BASOPHILS % (AUTO) 0.4 % (0.0-5.0); EOSINOPHILS % (AUTO) 4.7 % (0.0-8.0); HEMATOCRIT 40.2 % (36-48); LYMPHOCYTES % (AUTO) 32.2 % (21.0-51.0); MEAN CORPUSCULAR HGB CONC 33.6 g/dL (32.0-36.0); MEAN CORPUSCULAR VOLUME 95.3 fL (79-99); MONOCYTES % (AUTO) 10.8 % (3.0-13.0); NEUTROPHILS % (AUTO) 51.5 % (40.0-77.0); PLATELET COUNT (AUTO) 202 K/uL (130-400); RED BLOOD CELL COUNT(AUTO) 4.22 MIL/uL (4.00-5.50); RED CELL DISTRIBUTION WIDTH 13.6 % (11.0-15.5); WHITE BLOOD COUNT (AUTO) 5.1 K/uL (4.8-10.8)
[2022-10-21 06:52] LABS: CREATININE 1.2 mg/dL (0.5-1.5); MAGNESIUM 1.6 mg/dL (1.80-2.40); POTASSIUM 3.5 mmol/L (3.5-5.1)
[2022-10-21] MEDS: ACETAMINOPHEN 325 MG TAB PO PRN (07:24)
[2022-10-21 07:30] VITALS: BP 116/52
[2022-10-21 10:55] VITALS: BP 122/55
== END 2022-10-21 13:05 | disposition home or self-care (01) ==
LOC: EDH 00:50 → INTOOBSV 02:50 → EDHIP 02:50 → 3BH 04:57
PROVIDERS: ADMIT Internal Medicine Infectious Disease; ATTEND Internal Medicine Infectious Disease
DX: K35.80 Unspecified acute appendicitis (principal); Z20.822 Contact with and (suspected) exposure to COVID-19; D72.829 Elevated white blood cell count, unspecified; E66.9 Obesity, unspecified; I10 Essential (primary) hypertension; E78.5 Hyperlipidemia, unspecified; E11.9 Type 2 diabetes mellitus without complications; Z90.81 Acquired absence of spleen; Z79.899 Other long term (current) drug therapy; Z98.890 Other specified postprocedural states; Z90.49 Acquired absence of other specified parts of digestive tract; Z98.891 History of uterine scar from previous surgery; Z79.4 Long term (current) use of insulin; Z86.73 Personal history of transient ischemic attack (TIA), and cerebral infarction without residual deficits; Z68.28 Body mass index [BMI] 28.0-28.9, adult
CPT/HCPCS: 44970; 99291; 74176; 87635; 80053; 85025 ×2; 85610; 85730; 82948 ×6; 81001; 36415 ×2; 71045; 96365; 96366 ×2; 96375; 93005; 83036; 83735; 80048; J7030 ×2; J7042; J3010; J3490 ×2; J2710; J2001; J2250; J2704; J2405 ×2; J2270; J2543 ×4; A6206; C1769 ×3; A4649 ×5; G0378

== ENCOUNTER 2023-01-08 21:02 | Emergency (ER) | payer OTHER, MEDICARE ==
[2023-01-08] MEDS ORDERED: IBUP-2076 PO (22:25)
[2023-01-08 22:48] VITALS: BP 121/74
== END 2023-01-08 22:56 | disposition home or self-care (01) ==
LOC: EDH 21:02
DX: M25.561 Pain in right knee (principal); E11.9 Type 2 diabetes mellitus without complications; E78.49 Other hyperlipidemia; I10 Essential (primary) hypertension; Z88.8 Allergy status to other drugs, medicaments and biological substances; Z90.49 Acquired absence of other specified parts of digestive tract
CPT/HCPCS: 29505; 73564

== ENCOUNTER 2023-05-06 21:33 | Emergency (ER) | payer OTHER, MEDICARE ==
[~2023-05-06] VITALS: Ht 160 cm; Wt 68.0 kg
[~2023-05-06 21:33] MED LIST changes: -AMLO-73 PO; -ASPI-1026 PO; -ATOR10 PO; -CARV25TA PO; -CHOL200074 PO; -FISH1CAP50 PO; -FURO20TA4 PO; +IBUP-2076 PO; -INSLAN SQ; -INSU200I SQ; -MV,C1TAB21 PO; -NAPR-1180 PO; -OMEP20TA20 PO
[2023-05-06 21:34] VITALS: BP 140/62
== END 2023-05-06 23:42 | disposition left against medical advice (07) ==
LOC: EDH 21:33
DX: M79.89 Other specified soft tissue disorders (principal); Z53.21 Procedure and treatment not carried out due to patient leaving prior to being seen by health care provider
CPT/HCPCS: 99281

== ENCOUNTER → 2023-06-07 | Outpatient (CLI) | payer OTHER, MEDICARE | END | disposition home or self-care (01) | LOC: RAH 12:37 | PROVIDERS: ATTEND Internal Medicine | DX: Z12.31 Encounter for screening mammogram for malignant neoplasm of breast (principal) | CPT/HCPCS: 77067 ==

== ENCOUNTER → 2023-09-12 | Outpatient (CLI) | payer OTHER, MEDICARE | END | disposition home or self-care (01) | LOC: SHCH 10:33 | PROVIDERS: ATTEND Internal Medicine Cardiovascular Disease | DX: I35.0 Nonrheumatic aortic (valve) stenosis (principal); I51.7 Cardiomegaly; I95.1 Orthostatic hypotension; R42 Dizziness and giddiness; I51.89 Other ill-defined heart diseases | CPT/HCPCS: 93306 ==

== ENCOUNTER 2023-09-20 14:02 | Emergency (ER) | payer OTHER, MEDICARE ==
[~2023-09-20] VITALS: Ht 157.5 cm; Wt 67.1 kg
[2023-09-20 15:09] LABS: BASOPHILS # (AUTO) 0.03 K/uL (0.00-0.20); BASOPHILS % (AUTO) 0.4 % (0.0-5.0); EOSINOPHILS # (AUTO) 0.17 K/uL (0.00-0.70); EOSINOPHILS % (AUTO) 2.2 % (0.0-8.0); HEMATOCRIT 34.7 % (36-48); IMMATURE GRANULOCYTE ABSOLUTE 0.03 K/uL (0-1); LYMPHOCYTES # (AUTO) 2.9 K/uL (1.0-4.8); LYMPHOCYTES % (AUTO) 38.8 % (21.0-51.0); MEAN CORPUSCULAR HEMOGLOBIN 32.6 pg (27.0-33.0); MEAN CORPUSCULAR VOLUME 95.9 fL (79-99); MONOCYTES # (AUTO) 0.6 K/uL (0.1-1.0); MONOCYTES % (AUTO) 8.2 % (3.0-13.0); NEUTROPHILS # (AUTO) 3.8 K/uL (1.8-7.7); PLATELET COUNT (AUTO) 268 K/uL (130-400); RED BLOOD CELL COUNT(AUTO) 3.62 MIL/uL (4.00-5.50); RED CELL DISTRIBUTION WIDTH 13.7 % (11.0-15.5); WHITE BLOOD COUNT (AUTO) 7.6 K/uL (4.8-10.8)
[2023-09-20 15:38] LABS: CREATININE 1.8 mg/dL (0.5-1.5); POTASSIUM 3.5 mmol/L (3.5-5.1)
[2023-09-20 16:53] LABS: APPEARANCE,URINE CLEAR (CLEAR); BILIRUBIN,URINE NEGATIVE (NEGATIVE); COLOR,URINE YELLOW (YELLOW); GLUCOSE, URINE (UA) NEGATIVE (NEGATIVE); KETONES,URINE NEGATIVE (NEGATIVE); LEUKOCYTE ESTERASE ,URINE NEGATIVE Leu/uL (NEGATIVE); NITRATE,URINE NEGATIVE (NEGATIVE); OCCULT BLOOD,URINE NEGATIVE (NEGATIVE); PROTEIN,URINE 20 mg/dL (NEGATIVE); UROBILINOGEN,URINE 0.2 mg/dL (0.2-1.0)
[2023-09-20 16:54] LABS: ADD UA MICROSCOPIC YES
[2023-09-20 16:55] LABS: BACTERIA,URINE RARE /HPF (None Seen); MUCUS,URINE RARE LPF (None Seen); RBC,URINE 0-1 /HPF (0-1); SQUAMOUS EPITHELIAL CELL,UR RARE /HPF (0-2)
[2023-09-20 17:12] LABS: MAGNESIUM 2.1 mg/dL (1.80-2.40); THYROID STIMULATING HORMONE 1.07 uIU/mL (0.36-3.74)
[2023-09-20 17:46] VITALS: BP 116/78; PULSE 65; RESP 16; O2SAT 98
== END 2023-09-20 18:28 | disposition home or self-care (01) ==
LOC: EDH 14:02
DX: R53.1 Weakness (principal); N28.9 Disorder of kidney and ureter, unspecified; E11.9 Type 2 diabetes mellitus without complications; E78.00 Pure hypercholesterolemia, unspecified; I10 Essential (primary) hypertension; Z88.8 Allergy status to other drugs, medicaments and biological substances; Z90.49 Acquired absence of other specified parts of digestive tract
CPT/HCPCS: 36415; 80048; 81001; 83735; 84443; 84484; 85025; 93005

== ENCOUNTER 2024-01-04 14:49 | Emergency (ER) | payer OTHER, MEDICARE ==
[~2024-01-04] VITALS: Ht 160 cm; Wt 67.6 kg
[2024-01-04 17:40] VITALS: BP 129/72; PULSE 74; RESP 18; O2SAT 98
[2024-01-04] MEDS: KETOROLAC 30MG VIAL (30MG/ML) IM ONE (17:48)
== END 2024-01-04 18:15 | disposition home or self-care (01) ==
LOC: EDH 14:49
DX: S40.011A Contusion of right shoulder, initial encounter (principal); S50.01XA Contusion of right elbow, initial encounter; S80.01XA Contusion of right knee, initial encounter; S70.01XA Contusion of right hip, initial encounter; E11.9 Type 2 diabetes mellitus without complications; E78.00 Pure hypercholesterolemia, unspecified; I10 Essential (primary) hypertension; Z88.8 Allergy status to other drugs, medicaments and biological substances; Z90.49 Acquired absence of other specified parts of digestive tract; W18.39XA Other fall on same level, initial encounter; Y93.89 Activity, other specified; Y92.89 Other specified places as the place of occurrence of the external cause; Y99.8 Other external cause status
CPT/HCPCS: 99284; 73080; 73501; 73562; 73030; 96372; J1885

== ENCOUNTER → 2024-01-13 | Outpatient (CLI) | payer OTHER, MEDICARE | END | disposition home or self-care (01) | LOC: SHCH 14:51 | PROVIDERS: ATTEND Internal Medicine Cardiovascular Disease | DX: I35.0 Nonrheumatic aortic (valve) stenosis (principal); R01.1 Cardiac murmur, unspecified; R06.00 Dyspnea, unspecified; I25.119 Atherosclerotic heart disease of native coronary artery with unspecified angina pectoris | CPT/HCPCS: 93306 ==

== ENCOUNTER → 2024-01-17 | Outpatient (CLI) | payer OTHER, MEDICARE ==
[2024-01-17] MEDS: REGADENOSON 0.4 MG/5 ML PF SYG IVP ONE (12:42)
== END | disposition home or self-care (01) ==
LOC: SHCH 08:10
PROVIDERS: ATTEND Internal Medicine Cardiovascular Disease
DX: I25.119 Atherosclerotic heart disease of native coronary artery with unspecified angina pectoris (principal); R01.1 Cardiac murmur, unspecified; R06.00 Dyspnea, unspecified
CPT/HCPCS: 78452; 93017; J2785; A9500 ×2; 96374

== ENCOUNTER 2024-03-23 08:34 | Emergency (ER) | payer OTHER, MEDICARE ==
[~2024-03-23] VITALS: Ht 160 cm; Wt 65.3 kg
[2024-03-23 09:14] LABS: HEMATOCRIT 36.3 % (36-48); MEAN CORPUSCULAR HEMOGLOBIN 32.6 pg (27.0-33.0); MEAN CORPUSCULAR VOLUME 93.1 fL (79-99); RED BLOOD CELL COUNT(AUTO) 3.9 MIL/uL (4.00-5.50); RED CELL DISTRIBUTION WIDTH 13.4 % (11.0-15.5); WHITE BLOOD COUNT (AUTO) 8.4 K/uL (4.8-10.8)
[2024-03-23 09:18] LABS: APPEARANCE,URINE CLEAR (CLEAR); BILIRUBIN,URINE NEGATIVE (NEGATIVE); COLOR,URINE COLORLESS (YELLOW); GLUCOSE, URINE (UA) NEGATIVE (NEGATIVE); KETONES,URINE NEGATIVE (NEGATIVE); LEUKOCYTE ESTERASE ,URINE NEGATIVE Leu/uL (NEGATIVE); NITRATE,URINE NEGATIVE (NEGATIVE); OCCULT BLOOD,URINE NEGATIVE (NEGATIVE); PH,URINE 6.5 (5.0-8.0); PROTEIN,URINE NEGATIVE (NEGATIVE); UROBILINOGEN,URINE 0.2 mg/dL (0.2-1.0)
[2024-03-23 09:19] LABS: ADD UA MICROSCOPIC NO
[2024-03-23 09:22] LABS: CREATININE 1.5 mg/dL (0.5-1.0); POTASSIUM 4.1 mmol/L (3.5-5.1)
[2024-03-23] MEDS: 0.9%NACL 1000ML 1,000 ML IV SCH (10:40)
[2024-03-23] MEDS: ACETAMINOPHEN 500 MG TABLET PO ONE (10:41)
[2024-03-23] MEDS ORDERED: ISOP30DR11 OT (11:15)
[2024-03-23] MEDS ORDERED: MECL-226 PO (11:15)
[2024-03-23 13:34] VITALS: BP 111/60; PULSE 74; RESP 16; O2SAT 98
== END 2024-03-23 13:35 | disposition home or self-care (01) ==
LOC: EDH 08:34
DX: R42 Dizziness and giddiness (principal); E11.9 Type 2 diabetes mellitus without complications; E78.00 Pure hypercholesterolemia, unspecified; I10 Essential (primary) hypertension; Z86.73 Personal history of transient ischemic attack (TIA), and cerebral infarction without residual deficits; Z88.8 Allergy status to other drugs, medicaments and biological substances
CPT/HCPCS: 99284; 96360; 70450; 96361; 84484; 80048; 85027; 81003; 36415; 93005; J7030

== ENCOUNTER 2024-04-10 10:26 | Emergency (ER) | payer OTHER, MEDICARE ==
[~2024-04-10] VITALS: Ht 160 cm; Wt 61.2 kg
[~2024-04-10 10:26] MED LIST changes: +ISOP30DR11 OT; +MECL-226 PO
[2024-04-10 10:50] LABS: HEMATOCRIT 34.9 % (36-48); MEAN CORPUSCULAR HEMOGLOBIN 32.5 pg (27.0-33.0); MEAN CORPUSCULAR HGB CONC 34.7 g/dL (32.0-36.0); MEAN CORPUSCULAR VOLUME 93.8 fL (79-99); RED BLOOD CELL COUNT(AUTO) 3.72 MIL/uL (4.00-5.50); RED CELL DISTRIBUTION WIDTH 13.5 % (11.0-15.5); WHITE BLOOD COUNT (AUTO) 7.7 K/uL (4.8-10.8)
[2024-04-10] MEDS: 0.9%NACL 1000ML 1,000 ML IV ONE (11:05)
[2024-04-10] MEDS: INSULIN HUMULIN R 100 UNIT/ML 3ML IV ONE (11:06)
[2024-04-10 11:11] LABS: BILIRUBIN,URINE NEGATIVE (NEGATIVE); COLOR,URINE YELLOW (YELLOW); GLUCOSE, URINE (UA) >=1000 mg/dL (NEGATIVE); KETONES,URINE NEGATIVE (NEGATIVE); LEUKOCYTE ESTERASE ,URINE 500 Leu/uL (NEGATIVE); NITRATE,URINE NEGATIVE (NEGATIVE); OCCULT BLOOD,URINE NEGATIVE (NEGATIVE); PH,URINE 5.5 (5.0-8.0); PROTEIN,URINE 50 mg/dL (NEGATIVE); UROBILINOGEN,URINE 0.2 mg/dL (0.2-1.0)
[2024-04-10 11:15] LABS: CREATININE 1.6 mg/dL (0.5-1.0); POTASSIUM 4.2 mmol/L (3.5-5.1)
[2024-04-10 11:19] LABS: APPEARANCE,URINE HAZY (CLEAR)
[2024-04-10 11:20] LABS: ALBUMIN 3.4 g/dL (3.5-5.0); BILIRUBIN,TOTAL 0.7 mg/dL (0.2-1.0); TOTAL PROTEIN, SERUM 7.6 g/dL (6.0-8.3)
[2024-04-10 11:20] LABS: ADD UA MICROSCOPIC YES
[2024-04-10 11:23] LABS: BACTERIA,URINE FEW /HPF (None Seen); MUCUS,URINE RARE LPF (None Seen); SQUAMOUS EPITHELIAL CELL,UR RARE /HPF (0-2); WBC,URINE 51-100 /HPF (0-1)
[2024-04-10] MEDS: CEFTRIAXONE 1G VIAL IVPB ONE (12:46)
[2024-04-10] MEDS ORDERED: MACR100 PO (13:06)
[2024-04-10 13:34] VITALS: BP 136/67; PULSE 63; RESP 18; O2SAT 99
== END 2024-04-10 13:40 | disposition home or self-care (01) ==
LOC: EDH 10:26
DX: E11.65 Type 2 diabetes mellitus with hyperglycemia (principal); N30.00 Acute cystitis without hematuria; I10 Essential (primary) hypertension; E78.00 Pure hypercholesterolemia, unspecified; Z79.899 Other long term (current) drug therapy; Z98.890 Other specified postprocedural states; Z88.8 Allergy status to other drugs, medicaments and biological substances
CPT/HCPCS: 99284; 96365; 96361; 96375; 80053; 85027; 82948 ×2; 82010; 81001; 36415; J1815; J7030; J0696

== ENCOUNTER 2024-11-19 12:46 | Observation (INO) | payer OTHER, MEDICARE ==
[~2024-11-19] VITALS: Ht 160 cm; Wt 65.3 kg
[~2024-11-19 12:46] MED LIST changes: +CEPH500T PO; +MACR100 PO; +MECL-302 PO
--- NOTE | 2024-11-19 12:54 | ERN ---
General Chief Complaint: Syncope Stated Complaint: SYNCOPAL EPISODE WITNESS Time Seen by MD: 12:47 Source: patient, EMS History of Present Illness Initial Comments 74-YEAR-OLD FEMALE COMING IN TO BE EVALUATED FOR A SYNCOPAL EPISODE. PATIENT STATES THAT SHE WAS OUTSIDE GARDENING AND WAS SQUATTING DOWN FOR SOME TIME WHEN SHE TRIED TO GET UP SHE FELT DIZZY AND FELL DOWN. PATIENT HAS NO OTHER MEDICAL HISTORY Allergies: Coded Allergies: No Allergy Information Available (Verified Allergy, Unknown, 06/20/16) lisinopril (Unverified Allergy, Unknown, 10/13/20) Home Meds Active Scripts Cephalexin (Cephalexin) 500 Mg Tablet, 500 MG PO BID for 7 Days, #14 TAB Prov:DUC AVILEZ 08/09/24 Meclizine HCl (Meclizine HCl) 25 Mg Tablet, 25 MG PO TID for vertigo for 10 Days, #30 TAB 0 Refills Prov:DUC AVILEZ 08/09/24 Nitrofurantoin/Nitrofuran Mac (Macrobid) 100 Mg Cap, 1 CAP PO BID for 7 Days, #14 CAP 0 Refills Prov:CR WINCHESTER MD 04/10/24 Isopropyl Alcohol in Glycerin (Debrox Swimmer's Ear Drop) 95 %-5 % Drops, 5 DROP OT DAILY PRN for ear wax, #30 ML Prov:PAULY FERNANDZE 03/23/24 Meclizine HCl (Meclizine HCl) 12.5 Mg Tablet, 12.5 MG PO TID for 10 Days, #30 TAB Prov:PAULY FERNANDEZP 03/23/24 Ibuprofen (Ibuprofen) 400 Mg Tablet, 400 MG PO TIDP, #30 TAB Prov:DEVI RICHARDSON MD 01/08/23 Past Medical History Past Medical History: Diabetes-Type II, High Cholesterol, Hypertension, TIA Medical History Other: HYPERLIPIDEMIA Past Surgical History: Other Surgical History Other: SPLENECTOMY Family History Family History: Negative Social History Social History: Negative Female( History) History: Not Applicable ROS Dictation CONSTITUTIONAL: NO CHILLS, NO FEVER, NO WEAKNESS, NO DIAPHORESIS, NO MALAISE. HEAD/FACE: NO SIGNS OF TRAUMA. EENT: NO EYE PAIN, NO BLURRED VISION, NO TEARING, NO DOUBLE VISION, NO EAR PAIN, NO EAR DISCHARGE, NO NOSE PAIN, NO NASAL CONGESTION, NO THROAT PAIN, NO THROAT SWELLING, NO MOUTH PAIN. RESPIRATORY: NO COUGH, NO ORTHOPNEA, NO SOB, NO STRIDOR, NO WHEEZING. CARDIOVASCULAR: NO CHEST PAIN, NO EDEMA, NO PALPITATIONS, NO SYNCOPE. GASTROINTESTINAL/ABDOMINAL: NO ABDOMINAL PAIN, NO CONSTIPATION, NO DIARRHEA, NO NAUSEA, NO VOMITING. GENITOURINARY: NO ABNORMAL DISCHARGE, NO DYSURIA, NO FREQUENT URINATION, NO HEMATURIA. NO COMPLAINTS OF PAIN IN THE GENITALS. MUSCULOSKELETAL: NO BACK PAIN, NO GOUT, NO JOINT PAIN, NO JOINT SWELLING, NO MUSCLE PAIN, NO MUSCLE STIFFNESS, NO NECK PAIN. INTEGUMENTARY: NO CHANGE IN COLOR, NO CHANGE IN HAIR/NAILS, NO DRYNESS, NO LESION, NO LUMPS, NO RASH. NEUROLOGICAL/PSYCH: NO ANXIETY, NOT DEPRESSED, NO EMOTIONAL PROBLEM, NO HEADACHE, NO NUMBNESS, NO PRE-EXISTING DEFICIT, NO HISTORY OF SEIZURES, NO TREMORS, NO WEAKNESS. HEMATOLOGIC/LYMPHATIC: NOT ANEMIC, NO HISTORY OF BLOOD CLOTS, NO APPARENT BLEEDING, NO BRUISING, GLANDS NOT SWOLLEN. ALL SYSTEMS NEGATIVE, EXCEPT NOTED. Physical Exam Physical Exam Dictation VITAL SIGNS: REVIEWED. GENERAL APPEARANCE: ALERT, ORIENTED X3, NO ACUTE DISTRESS, OBESE. HEAD AND FACE: NON-TRAUMATIC. EYES: PERRL, PINK CONJUNCTIVAS, EYELID NO TRAUMA, ANTERIOR CHAMBER CLEAR. EARS: PINNAS INTACT AND NO SIGNS OF TRAUMA OR ERYTHEMA. EAR CANALS CLEAR AND NO DISCHARGE. TMS NO ERYTHEMA. NOSE: NO DISCHARGE, NO BLEEDING. OROPHARYNX: MOUTH NORMAL, TEETH NO CARIES, TONGUE PINK. PHARYNX CLEAR, NO ERYTHEMA. TONSILS NO EXUDATES, NO ABSCESSES NOTED. MUCOUS MEMBRANE MOIST. NECK: SUPPLE, NON-TENDER, NO THYROMEGALY, NO MASSES, NO JVD, NO BRUITS. BREAST: DEFERRED. CHEST: NO TENDERNESS, NO CREPITUS, NO PARADOXICAL MOVEMENT, NO RETRACTIONS. LUNGS: CLEAR, WELL-VENTILATED, SYMMETRIC, NO RALES, NO WHEEZING, NO RHONCHI, NO STRIDOR, GOOD BREATH SOUNDS BILATERALLY. HEART: REGULAR RATE, REGULAR RHYTHM, NO MURMUR, NO GALLOPS. VASCULAR: NO PERIPHERAL EDEMA. ABDOMEN: SOFT, POSITIVE BOWEL SOUNDS, NONDISTENDED, NO GUARDING, NONTENDER, NO REBOUND, NO MASSES NO HEPATOMEGALY, NO SPLENOMEGALY, NO MCGUIRE'S SIGN, NO HERNIAS. RECTAL: DEFERRED. GENITAL: DEFERRED. NEUROLOGICAL: NORMAL SPEECH, GROSS MOTOR FUNCTION INTACT, GROSS SENSORY FUNCTION INTACT. MUSCULOSKELETAL: NECK NONTENDER, FULL RANGE OF MOTION, BACK NONTENDER, FULL RANGE OF MOTION. EXTREMITIES: NONTENDER, FULL RANGE OF MOTION. SKIN: COLOR PINK, DRY, NO TURGOR, NO RASH, NO LACERATIONS, NO ABRASIONS, NO CONTUSIONS. LYMPHATICS: DEFERRED. Results Laboratory and Microbiology Lab and Micro Result Laboratory Tests Test 11/19/24 13:15 11/19/24 14:16 11/19/24 15:41 White Blood Count 7.8 K/uL (4.8-10.8) Red Blood Count 3.65 MIL/uL (4.00-5.50) L Hemoglobin 11.8 g/dL (12.0-16.0) L Hematocrit 34.2 % (36-48) L Mean Corpuscular Volume 93.7 fL (79-99) Mean Corpuscular Hemoglobin 32.3 pg (27.0-33.0) Mean Corpuscular Hemoglobin Concent 34.5 g/dL (32.0-36.0) Red Cell Distribution Width 13.2 % (11.0-15.5) Platelet Count 254 K/uL (130-400) Mean Platelet Volume 9.5 fL (7.5-10.5) Immature Granulocyte % (Auto) 0.3 % (0-1) Neutrophils (%) (Auto) 53.7 % (40.0-77.0) Lymphocytes (%) (Auto) 33.2 % (21.0-51.0) Monocytes (%) (Auto) 9.8 % (3.0-13.0) Eosinophils (%) (Auto) 2.6 % (0.0-8.0) Basophils (%) (Auto) 0.4 % (0.0-5.0) Neutrophils # (Auto) 4.2 K/uL (1.8-7.7) Lymphocytes # (Auto) 2.6 K/uL (1.0-4.8) Monocytes # (Auto) 0.8 K/uL (0.1-1.0) Eosinophils # (Auto) 0.20 K/uL (0.00-0.70) Basophils # (Auto) 0.03 K/uL (0.00-0.20) Absolute Immature Granulocyte (auto 0.02 K/uL (0-1) Nucleated Red Blood Cells 0.0 % (0.0-0.19) Prothrombin Time 10.5 SEC (9.6-11.6) Prothromb Time International Ratio <= 0.93 (0.85-1.15) Activated Partial Thromboplast Time 24.1 SEC (26.3-35.5) L Sodium Level 138 mmol/L (136-145) Potassium Level 3.8 mmol/L (3.5-5.1) Chloride Level 105 mmol/L (101-111) Carbon Dioxide Level 25 mmol/L (21-32) Blood Urea Nitrogen 24 mg/dL (7-18) H Creatinine 1.7 mg/dL (0.5-1.0) H Glomerular Filtration Rate Calc 31 mL/min (>90) Random Glucose 122 mg/dL (70-105) H Total Calcium 9.1 mg/dL (8.5-10.1) Magnesium Level 2.00 mg/dL (1.80-2.40) Total Creatine Kinase 138 U/L (21-232) Troponin I High Sensitivity < 4 ng/L (4-50) L 4 ng/L (4-50) B-Type Natriuretic Peptide 123 pg/mL (0-100) H Influenza Type A Antigen Negative For Type A Influenza Type B Antigen Negative For Type B SARS-CoV-2, RNA, NAAT NEGATIVE SARS CoV-2 Urine Color LIGHT-YELLOW (YELLOW) Urine Appearance CLEAR (CLEAR) Urine pH 5.5 (5.0-8.0) Urine Specific Bob White 1.006 (1.001-1.031) Urine Protein NEGATIVE mg/dL (NEGATIVE) Urine Glucose (UA) NEGATIVE mg/dL (NEGATIVE) Urine Ketones NEGATIVE mg/dL (NEGATIVE) Urine Occult Blood NEGATIVE (NEGATIVE) Urine Nitrate NEGATIVE (NEGATIVE) Urine Bilirubin NEGATIVE mg/dL (NEGATIVE) Urine Urobilinogen 0.2 mg/dL (0.2-1.0) Urine Leukocyte Esterase 25 Yue/uL (NEGATIVE) H Urine RBC 0-1 /HPF (0-1) Urine WBC 2-5 /HPF (0-1) H Urine Squamous Epithelial Cells RARE /HPF (0-2) Urine Bacteria RARE /HPF (None Seen) Urine Hyaline Casts 2-5 /LPF (0-1 /LPF) H Urine Other Casts 3 /LPF (None Seen) Labs Reviewed?: Yes EKG/XRAY/US/CT/MRI EKG Comment 11/19/2024 time 1:51 p.m. Ventricular rate 70 Sinus rhythm [place] [address] wave elevation or depression MDM MDM: Differential diagnosis: Syncope, dehydration, Patient is a 74-year-old female coming in to be evaluated after she had a syncopal episode. Patient was hydrated with IV fluids states he feels much better. I advised her that and he did have her stay due to the syncopal and collapse episode. Patient refused state she does not want to stay and will follow up with her tie sawyer Dr. Parnell. I continue to educate her for 15-20 minutes with the patient still refused and states she wants to go home because her needs assistance at home. Throughout ER visit patient has been stable she states he feels much better with IV fluids. ED Course Orders Procedure Category Date Status Time Cbc With Differential LAB 11/19/24 Complete 12:51 Prothrombin Time With LAB 11/19/24 Complete INR 12:51 B-Type Natriuretic LAB 11/19/24 Complete Peptide 12:51 Chest 1vw RAD 11/19/24 Resulted 12:51 12 Lead Ekg Tracing- EKG 11/19/24 Complete Technical 12:51 0.9%Nacl 1000ml (Ns PHA 11/19/24 Complete 1000ml) 13:00 Magnesium LAB 11/19/24 Complete 12:51 Creatine Kinase, Total LAB 11/19/24 Complete 12:51 Troponin I High LAB 11/19/24 Complete Sensitivity 12:51 Urinalysis Profile LAB 11/19/24 Complete 12:51 Partial LAB 11/19/24 Complete Thromboplastin Time 12:51 Basic Metabolic Panel LAB 11/19/24 Complete 12:51 Covid Rna Naat LAB 11/19/24 Complete 12:51 Influenza Type A & B, LAB 11/19/24 Complete Rapid 12:51 Troponin I High LAB 11/19/24 Complete Sensitivity 14:22 Ceftriaxone 1g Vial PHA 11/19/24 Complete (Rocephine 1g Inj) 15:00 Current Medications Medications (Trade) Dose Ordered Sig/Juan David Route PRN Reason Start Time Stop Time Status Last Admin Dose Admin Ceftriaxone Sodium (ROCEphine 1G INJ) 1 gm ONCE ONCE IVPB 11/19/24 15:00 11/19/24 15:01 DC 11/19/24 15:06 Sodium Chloride 1,000 ml @ 0 mls/hr ONCE ONCE IV 11/19/24 13:00 11/19/24 13:01 DC 11/19/24 13:20 Vital Signs Date Time Temp Pulse Resp B/P (MAP) Pulse Ox O2 Delivery O2 Flow Rate FiO2 11/19/24 15:10 98.1 71 18 134/65 98 Room Air* 0 21 11/19/24 14:30 98.1 71 18 132/68 98 Room Air* 0 21 11/19/24 13:18 71 18 136/70 96 Room Air* 0 21 11/19/24 12:52 98.2 70 16 103/58 98 Room Air 0 DX & DISP Disposition: Discharge Departure Impression: Primary Impression: Syncope and collapse Additional Impression: Dehydration Condition: Stable Additional Instructions: FOLLOW-UP WITH PRIMARY CARE PROVIDER IN 1 TO 2 DAYS. TAKE MEDICATIONS DIRECTED HERE IN THE EMERGENCY ROOM. OKAY TO CONTINUE HOME MEDICATIONS UNLESS OTHERWISE DISCUSSED DURING YOUR VISIT IN THE EMERGENCY ROOM TODAY. RETURN TO YOUR NEAREST EMERGENCY ROOM IF SYMPTOMS WORSEN OR IF THERE IS NO IMPROVEMENT. CALL 911 IF YOU NEED IMMEDIATE ASSISTANCE. TAKE TYLENOL [id number] NEEDED AND IF NO CONTRAINDICATIONS ARE PRESENT. INCREASE ORAL HYDRATION. A WOUND CULTURE OR URINE CULTURE WAS ORDERED HERE IN THE EMERGENCY ROOM DEPARTMENT PLEASE FOLLOW-UP WITH PRIMARY CARE PROVIDER AND ADVISE THEM TO GET REPEAT PORTS FROM OUR FACILITY. IF YOU HAD ANY TORRES WRAP/SPLINTS THAT WERE APPLIED HERE, PLEASE DO NOT REMOVE THEM UNTIL YOU SEE YOUR PRIMARY CARE OR SPECIALTY. Referrals: Referrals: CAROLEE CORDOBA MD (PCP) DIANA PARNELL MD Time of Disposition: 16:15 ARVIN BHATTI MD Nov 19, 2024 12:54
[2024-11-19] MEDS: 0.9%NACL 1000ML 1,000 ML IV ONE (13:20)
[2024-11-19 13:23] LABS: BASOPHILS # (AUTO) 0.03 K/uL (0.00-0.20); BASOPHILS % (AUTO) 0.4 % (0.0-5.0); EOSINOPHILS % (AUTO) 2.6 % (0.0-8.0); HEMATOCRIT 34.2 % (36-48); IMMATURE GRANULOCYTE ABSOLUTE 0.02 K/uL (0-1); LYMPHOCYTES # (AUTO) 2.6 K/uL (1.0-4.8); LYMPHOCYTES % (AUTO) 33.2 % (21.0-51.0); MEAN CORPUSCULAR HEMOGLOBIN 32.3 pg (27.0-33.0); MEAN CORPUSCULAR HGB CONC 34.5 g/dL (32.0-36.0); MEAN CORPUSCULAR VOLUME 93.7 fL (79-99); MONOCYTES # (AUTO) 0.8 K/uL (0.1-1.0); MONOCYTES % (AUTO) 9.8 % (3.0-13.0); NEUTROPHILS # (AUTO) 4.2 K/uL (1.8-7.7); NEUTROPHILS % (AUTO) 53.7 % (40.0-77.0); PLATELET COUNT (AUTO) 254 K/uL (130-400); RED BLOOD CELL COUNT(AUTO) 3.65 MIL/uL (4.00-5.50); RED CELL DISTRIBUTION WIDTH 13.2 % (11.0-15.5); WHITE BLOOD COUNT (AUTO) 7.8 K/uL (4.8-10.8)
[2024-11-19 13:30] LABS: CREATININE 1.7 mg/dL (0.5-1.0); POTASSIUM 3.8 mmol/L (3.5-5.1)
[2024-11-19 13:37] LABS: SARS-CoV-2, RNA, NAAT NEGATIVE SARS CoV-2 (NEGATIVE)
[2024-11-19 13:42] LABS: INFLUENZA TYPE A Negative For Type A (NEGATIVE); INFLUENZA TYPE B Negative For Type B (NEGATIVE); INR <= 0.93 (0.85-1.15); PROTHROMBIN TIME 10.5 SEC (9.6-11.6)
[2024-11-19 13:43] LABS: PARTIAL THROMBOPLASTIN TIME 24.1 SEC (26.3-35.5)
[2024-11-19 14:12] LABS: B-TYPE NATRIURETIC PEPTIDE 123 pg/mL (0-100)
--- NOTE | 2024-11-19 14:16 | HMCIMG ---
Exam Type: CHEST 1VW Clinical Information: SYNCOPE Comparison: None Findings: The lungs are clear of infiltrates. The heart is normal in size. The bony and soft tissue structures of the chest are unremarkable. Impression: Clear lungs.
[2024-11-19 14:41] LABS: APPEARANCE,URINE CLEAR (CLEAR); BILIRUBIN,URINE NEGATIVE (NEGATIVE); COLOR,URINE LIGHT-YELLOW (YELLOW); GLUCOSE, URINE (UA) NEGATIVE (NEGATIVE); KETONES,URINE NEGATIVE (NEGATIVE); LEUKOCYTE ESTERASE ,URINE 25 Leu/uL (NEGATIVE); NITRATE,URINE NEGATIVE (NEGATIVE); OCCULT BLOOD,URINE NEGATIVE (NEGATIVE); PH,URINE 5.5 (5.0-8.0); PROTEIN,URINE NEGATIVE (NEGATIVE); UROBILINOGEN,URINE 0.2 mg/dL (0.2-1.0)
[2024-11-19 14:44] LABS: ADD UA MICROSCOPIC YES
[2024-11-19 14:46] LABS: BACTERIA,URINE RARE /HPF (None Seen); MUCUS,URINE RARE LPF (None Seen); OTHER CASTS, URINE 3 /LPF (None Seen); RBC,URINE 0-1 /HPF (0-1); SQUAMOUS EPITHELIAL CELL,UR RARE /HPF (0-2)
--- NOTE | 2024-11-19 14:47 | EKG ---
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
[2024-11-19] MEDS: cefTRIAXone 1G VIAL IVPB ONE (15:06)
--- NOTE | 2024-11-19 17:23 | HMCIMG ---
CT HEAD/BRAIN W/O CONTRAST INDICATION: vertigo TECHNIQUE: CT HEAD/BRAIN W/O CONTRAST. CT was performed with one or more of the following dose reduction techniques: Automated exposure control, adjustment of the mA and/or kV according to the patient's size, or use of the iterative reconstruction technique. Comparison: None FINDINGS: Cerebral atrophy seen. Nonspecific periventricular and subcortical white matters changes are noted likely representing small vessel ischemic changes. No midline shift or herniation. No extra axial collection. No acute intracranial bleed. There is mucosal thickening in the right sphenoid sinus. Remaining paranasal sinuses and mastoid air cells are clear. IMPRESSION: Diffuse atrophy. No acute intracranial bleed is seen. Nonspecific white matter changes
[2024-11-19] MEDS ORDERED: PoTASSium chl 10% ELIXIR 20MEQ 20 MEQ/15 ML UDCUP PO PRN (17:30)
[2024-11-19] MEDS ORDERED: NITROGLYCERIN 0.4 MG SL TAB SL PRN (17:30)
[2024-11-19] MEDS ORDERED: PoTASSium chloRIDE 20MEQ/100ML 100 ML IV PRN ×2 (17:30)
[2024-11-19] MEDS ORDERED: acetaMINOPHEN 325 MG TAB PO PRN ×2 (17:30)
[2024-11-19] MEDS ORDERED: doCUSate SODIUM 100 MG CAP PO PRN (17:30)
[2024-11-19] MEDS ORDERED: polyETHYLene GLYCol 3350 17 GM POWD.PACK PO PRN (17:30)
[2024-11-19] MEDS ORDERED: hydrALAZine 25MG TABLET PO PRN (17:30)
[2024-11-19] MEDS: 0.9%NACL 1000ML 1,000 ML IV SCH (17:31)
[2024-11-19 20:25] VITALS: O2SAT 97
[2024-11-19] MEDS: FAMOTIDINE 20MG TAB PO SCH (20:59)
[2024-11-19] MEDS: INSULIN humuLIN R 100 UNIT/ML 3ML SQ SCH (20:59)
--- NOTE | 2024-11-19 22:10 | NUR ---
ADMIT PT ADMITTED TO ROOM 326. PT IS CONVERSANT AND COHERENT. AMBULATORY WITHOUT ANY DIZZINESS. ADMISSION CARE DONE. PLACED COMFORTABLY IN BED AND KEPT WARM. ADMISSION V/S MONITORED, STABLE. ADMISSION ASSESSMENT DONE, PLEASE REFER TO CHART. RE-STARTED IVF FROM ER OF NS REGULATED AT 100CC/HR VIA PIV G20 TO RFA. FALL PRECAUTIONS IN PLACE, SIDE RAILS RAISED AND BED ALARM ACTIVATED. CALL LIGHT WITHIN REACH. ORIENTED TO ROOM AND UNIT. IN FOR MORE CARE AND MANAGEMENT.
[2024-11-19 22:15] VITALS: BP 144/78; PULSE 73; RESP 18; TEMP 97.8
[2024-11-19 22:20] VITALS: O2SAT 95
[2024-11-19] MEDS ORDERED: FURO20TA4 PO (22:48)
[2024-11-19] MEDS ORDERED: OMEP20CA12 PO (22:48)
[2024-11-19] MEDS ORDERED: ATOR20TA65 PO (22:48)
[2024-11-19] MEDS ORDERED: CARV25TA PO (22:48)
[2024-11-19] MEDS ORDERED: ASPI-1005 PO (22:48)
[2024-11-19] MEDS ORDERED: AMLO1CAP87 PO (22:48)
--- NOTE | 2024-11-19 22:50 | HP ---
[facility] HISTORY & PHYSICAL Date Patient Seen: Nov 19, 2024 Time of Visit: 22:50 Supervising Physician: Dr. Hudson Primary Care Physician: Dr. Escalera Outpatient Specialists: Inpatient Consults: [facility] Neurology PROBLEM LIST: Syncope episode, POA Acute complicated cystitis, POA Acute kidney injury, POA Acute on chronic kidney disease, GFR 31 Elevated BNP Anemia of chronic disease Diabetes mellitus with hyperglycemia Hypertension Hypercholesteremia History of remote TIA History of remote splenectomy HPI: Ms. Spencer is a 74-year-old female presented to [facility] ED evaluation of syncope. The patient reported that she went outside to water the grass and was out there only 5 minutes. She reported that her stood at the door to watch her. She reported that she squatted down to connect the hose, felt a dizzy spell, and the next thing she remembers is being in an ambulance. The daughter at bedside reported that the patient's stated that he saw when she fainted and asked the provider to assist the patient. (He has had recent surgery and could not pick her up by himself.) The patient reports that she fainted one other time when she was in her 20s, but has not fainted since then. She states before she fainted she had done couple toes. She ate a good breakfast. In the fainting spell was a little after nine after the chores. The patient reports that she was in this hospital and Dr. Parnell saw her. 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 She has not seen cardiology for about 3 years. Remarkable lab results: Hemoglobin 11.8, hematocrit 34.2, RBC 3.65, BUN 24, creatinine 1.7, GFR 31 (most recent GFR 08/09/2024 was 37. On 12/19/2012 GFR was 44.), glucose 122, BNP 123. UA positive for leuk EST. CT head/ brain w out contrast: Diffuse atrophy. No acute intracranial bleed. Nonspecific white matter changes. ED provider request patient be admitted with the diagnosis of syncope episode, dehydration, UTI. The patient was seen/assessed by me in 326. The patient appeared comfortable, in no distress, breathing was even and unlabored, no neuro deficits. Daughter was at bedside who helped obtain information. I informed them of labs, diagnostics, and plan of care. They verbalized understanding and are in agreement with plan. Plan and assessment are listed below. PAST MEDICAL HX: see above PAST SURGICAL HX: splenectomy SOCIAL HISTORY: No tobacco, ETOH, or illicit drug use Coded Allergies: No Allergy Information Available (Verified Allergy, Unknown, 06/20/16) lisinopril (Unverified Allergy, Unknown, 10/13/20) REVIEW OF SYSTEMS: 12 point ROS reviewed with patient. Pertinent positives mentioned above. Otherwise negative. PHYSICAL EXAM: GENERAL: Alert, awake oriented x 3 HEENT: EOMI, Sclera non icteric, moist mucosa NECK: Supple, no JVD, trachea midline LUNGS: Clear breath sounds bilaterally. No wheezes HEART: Regular rate and rhythm. Normal S1 and S2, without murmurs ABD: Abdomen soft, nontender. Bowel sounds present EXT: No clubbing cyanosis or edema NEURO: Alert and oriented X3, follows commands, no neurodeficits noted. Vital Signs (last 8hr) Date Time Temp Pulse Resp B/P (MAP) Pulse Ox O2 Delivery O2 Flow Rate FiO2 11/19/24 19:30 97.5 75 18 145/66 97 Room Air* 0 21 11/19/24 17:30 98.1 74 18 147/81 98 Room Air* 0 21 11/19/24 16:15 98.1 74 18 152/84 98 Room Air* 0 21 11/19/24 15:10 98.1 71 18 134/65 98 Room Air* 0 21 LABS: Hematology Labs: Test 11/19/24 13:15 Range/Units White Blood Count 7.8 4.8-10.8 K/uL Red Blood Count 3.65 L 4.00-5.50 MIL/uL Hemoglobin 11.8 L 12.0-16.0 g/dL Hematocrit 34.2 L 36-48 % Mean Corpuscular Volume 93.7 79-99 fL Mean Corpuscular Hemoglobin 32.3 27.0-33.0 pg Mean Corpuscular Hemoglobin Concent 34.5 32.0-36.0 g/dL Red Cell Distribution Width 13.2 11.0-15.5 % Platelet Count 254 130-400 K/uL Mean Platelet Volume 9.5 7.5-10.5 fL Immature Granulocyte % (Auto) 0.3 0-1 % Neutrophils (%) (Auto) 53.7 40.0-77.0 % Lymphocytes (%) (Auto) 33.2 21.0-51.0 % Monocytes (%) (Auto) 9.8 3.0-13.0 % Eosinophils (%) (Auto) 2.6 0.0-8.0 % Basophils (%) (Auto) 0.4 0.0-5.0 % Neutrophils # (Auto) 4.2 1.8-7.7 K/uL Lymphocytes # (Auto) 2.6 1.0-4.8 K/uL Monocytes # (Auto) 0.8 0.1-1.0 K/uL Eosinophils # (Auto) 0.20 0.00-0.70 K/uL Basophils # (Auto) 0.03 0.00-0.20 K/uL Absolute Immature Granulocyte (auto 0.02 0-1 K/uL Nucleated Red Blood Cells 0.0 0.0-0.19 % Chemistry Labs: Test 11/19/24 15:41 11/19/24 13:15 Range/Units Troponin I High Sensitivity 4 4-50 ng/L Sodium Level 138 136-145 mmol/L Potassium Level 3.8 3.5-5.1 mmol/L Chloride Level 105 101-111 mmol/L Carbon Dioxide Level 25 21-32 mmol/L Blood Urea Nitrogen 24 H 7-18 mg/dL Creatinine 1.7 H 0.5-1.0 mg/dL Glomerular Filtration Rate Calc 31 >90 mL/min Random Glucose 122 H 70-105 mg/dL Total Calcium 9.1 8.5-10.1 mg/dL Magnesium Level 2.00 1.80-2.40 mg/dL Total Creatine Kinase 138 21-232 U/L B-Type Natriuretic Peptide 123 H 0-100 pg/mL Coagulation Labs: Test 11/19/24 13:15 Range/Units Prothrombin Time 10.5 9.6-11.6 SEC Prothromb Time International Ratio <= 0.93 0.85-1.15 Activated Partial Thromboplast Time 24.1 L 26.3-35.5 SEC DIAGNOSTICS / RADIOLOGY RESULTS: [ ] PLAN Admit to medical floor with telemetry monitoring. Consult Neurology and Cardiology. Carotid Dopplers in a.m.. Rocephin 2 g daily. Gentle IV fluid hydration. 2D echo in a.m.. EKG and troponin series. P.r.n. medications for: Pain management, fever, nausea, vomiting, hypertension, constipation. Reconcile medications Blood pressure checks every4 hours and as needed. Glucometer checks a.c. and HS with insulin regular sliding scale. Monitor renal and liver function. Monitor electrolytes and treat accordingly. A.m. labs: CBC, BNP, Mag, phos, TSH, A1c, troponin DVT and GI prophylaxis. NEURO: Minimize central acting medications as possible. Maintain fall precautions, adequate lighting during the day PULMONARY: Supplemental 02 as needed. Maintain aspiration precautions at all times CARDIOVASCULAR: Follow hemodynamics. Vital signs per facility protocol GI & NUTRITION: Continue with nutritional support. Continue stool softeners and laxatives as needed. KIDNEYS & ELECTROLYTES: Strict monitoring of intake, output and overall fluid balance. Avoid nephrotoxic medications to the extent possible. Medications to be dosed according to renal function. Monitor electrolytes and replace as needed ENDOCRINE: Maintain blood glucose between 100-180 at all times. Hypoglycemia protocol in place INFECTIOUS DISEASE: Trend temperature, WBC and procalcitonin level Follow cultures, deescalate antibiotics as soon as possible. Panculture if new onset fever ONCOLOGY/HEMATOLOGY/COAGULATION: Monitor for s/s of bleeding Monitor hemoglobin, coagulation studies as needed SKIN: Pressure ulcer prevention per facility protocol Specialty mattress ORTHO/REHAB: Continue PT/OT Prophylaxis: Continue GI and DVT prophylaxis Code Status: Full Resuscitation Disposition: BRAD SALDIVAR Nov 19, 2024 22:50
--- NOTE | 2024-11-19 23:00 | NUR ---
LOCOMOTIVE OILER SAIGE MCFADDEN IN TO SEE PT. NO NEW ORDERS RECEIVED.
[2024-11-20] VITALS (10 sets, daily range): BP systolic 114–150; BP diastolic 63–78; PULSE 67–77; RESP 17–18; TEMP 98.2–98.4; O2SAT 95
--- NOTE | 2024-11-20 06:05 | NUR ---
WALK PT AWAKENED AND ASSISTED TO THE BATHROOM THEN BACK TO BED. PT AMBULATED WITHOUT ANY PROBLEMS. NO DISTRESS NOTED. KEPT COMFORTABLE IN BED. CALL LIGHT WITHIN REACH. FOR MORE CARE.
--- NOTE | 2024-11-20 09:28 | PN ---
[facility] PROGRESS NOTE Date Patient Seen: Nov 20, 2024 Time of Visit: 09:25 Supervising Physician: [Dr. Fong] Primary Care Physician: Dr. Escalera Outpatient Specialists: Inpatient Consults: [facility] Neurology PROBLEM LIST: Syncope episode, POA pending workup Acute complicated cystitis, POA pending urine culture Acute kidney injury, POA treated Acute on chronic kidney disease, GFR 31 Elevated BNP Anemia of chronic disease Diabetes mellitus with hyperglycemia Hypertension Hypercholesteremia History of remote TIA History of remote splenectomy Plan: Continue hydration with IVF Pending echocardiogram and carotid doppler Pending cardiology and neurology consultation Continue Rocephin empirically, deescalate as warranted Resume home meds once available Further management per hospital course Disposition TBD INTERVAL HISTORY: [Patient with a PMH of diabetes, hypertension, hyperlipidemia and GERD was admitted for evaluation of syncope. She was outside gardening and feel dizzy as she was standing from squatting position. States one episode previously as a young adult. No cardiac hx or A-fib. No prior strokes, no hx of seizures. Patient follows Dr. Parnell outpatient states last visit was about 2 years ago. Admits feeling dizzy on/off for the last two weeks but no chest pain or palpitations. She was given a dose of Rocephin and1 L NS in the ED. Her labs on admission were remarkable for elevated creatinine at 1.7, CK was 138, troponin was negative, BNP was 123. COVID and flu swabs were negative. Her UA was positive for small LE, CT of the head was negative for ICH. CXR was within normal limits. She continues hydration with IVF. She is pending an echocardiogram, carotid Doppler. Cardiology and Neurology were consulted, pending evaluation. No fever, cough, nausea/vomiting or diarrhea. She is clinically dry.] REVIEW OF SYSTEMS: 12 point ROS reviewed with patient. Pertinent positives mentioned above. Otherwise negative. PHYSICAL EXAM: GENERAL: alert, weak, awake oriented x 3, dehydrated HEENT: EOMI, Sclera non icteric, moist mucosa NECK: Supple, no JVD, trachea midline LUNGS: Clear breath sounds bilaterally. No wheezes HEART: Regular rate and rhythm. Normal S1 and S2, without murmurs ABD: Abdomen soft, nontender. Bowel sounds present EXT: No clubbing cyanosis or edema NEURO: Alert and oriented to person, follows commands Vital Signs (last 8hr) Date Time Temp Pulse Resp B/P (MAP) Pulse Ox O2 Delivery O2 Flow Rate FiO2 11/20/24 08:00 98.2 72 18 122/67 99 11/20/24 04:00 98.2 70 18 114/63 95 Room Air LABS: Hematology Labs: Test 11/19/24 13:15 Range/Units White Blood Count 7.8 4.8-10.8 K/uL Red Blood Count 3.65 L 4.00-5.50 MIL/uL Hemoglobin 11.8 L 12.0-16.0 g/dL Hematocrit 34.2 L 36-48 % Mean Corpuscular Volume 93.7 79-99 fL Mean Corpuscular Hemoglobin 32.3 27.0-33.0 pg Mean Corpuscular Hemoglobin Concent 34.5 32.0-36.0 g/dL Red Cell Distribution Width 13.2 11.0-15.5 % Platelet Count 254 130-400 K/uL Mean Platelet Volume 9.5 7.5-10.5 fL Immature Granulocyte % (Auto) 0.3 0-1 % Neutrophils (%) (Auto) 53.7 40.0-77.0 % Lymphocytes (%) (Auto) 33.2 21.0-51.0 % Monocytes (%) (Auto) 9.8 3.0-13.0 % Eosinophils (%) (Auto) 2.6 0.0-8.0 % Basophils (%) (Auto) 0.4 0.0-5.0 % Neutrophils # (Auto) 4.2 1.8-7.7 K/uL Lymphocytes # (Auto) 2.6 1.0-4.8 K/uL Monocytes # (Auto) 0.8 0.1-1.0 K/uL Eosinophils # (Auto) 0.20 0.00-0.70 K/uL Basophils # (Auto) 0.03 0.00-0.20 K/uL Absolute Immature Granulocyte (auto 0.02 0-1 K/uL Nucleated Red Blood Cells 0.0 0.0-0.19 % Chemistry Labs: Test 11/19/24 15:41 11/19/24 13:15 Range/Units Troponin I High Sensitivity 4 4-50 ng/L Sodium Level 138 136-145 mmol/L Potassium Level 3.8 3.5-5.1 mmol/L Chloride Level 105 101-111 mmol/L Carbon Dioxide Level 25 21-32 mmol/L Blood Urea Nitrogen 24 H 7-18 mg/dL Creatinine 1.7 H 0.5-1.0 mg/dL Glomerular Filtration Rate Calc 31 >90 mL/min Random Glucose 122 H 70-105 mg/dL Total Calcium 9.1 8.5-10.1 mg/dL Magnesium Level 2.00 1.80-2.40 mg/dL Total Creatine Kinase 138 21-232 U/L B-Type Natriuretic Peptide 123 H 0-100 pg/mL Coagulation Labs: Test 11/19/24 13:15 Range/Units Prothrombin Time 10.5 9.6-11.6 SEC Prothromb Time International Ratio <= 0.93 0.85-1.15 Activated Partial Thromboplast Time 24.1 L 26.3-35.5 SEC DIAGNOSTICS / RADIOLOGY RESULTS: [Reviewed] PLAN NEURO: Minimize central acting medications as possible. Maintain fall precautions, adequate lighting during the day PULMONARY: Supplemental 02 as needed. Maintain aspiration precautions at all times CARDIOVASCULAR: Follow hemodynamics. Vital signs per facility protocol GI & NUTRITION: Continue with nutritional support. Continue stool softeners and laxatives as needed. KIDNEYS & ELECTROLYTES: Strict monitoring of intake, output and overall fluid balance. Avoid nephrotoxic medications to the extent possible. Medications to be dosed according to renal function. Monitor electrolytes and replace as needed ENDOCRINE: Maintain blood glucose between 100-180 at all times. Hypoglycemia protocol in place INFECTIOUS DISEASE: Trend temperature, WBC and procalcitonin level Follow cultures, deescalate antibiotics as soon as possible. Panculture if new onset fever ONCOLOGY/HEMATOLOGY/COAGULATION: Monitor for s/s of bleeding Monitor hemoglobin, coagulation studies as needed SKIN: Pressure ulcer prevention per facility protocol Specialty mattress ORTHO/REHAB: Continue PT/OT Prophylaxis: Continue GI and DVT prophylaxis Code Status: Full Resuscitation Disposition: TBD Other: Total patient care time exceeds 35 minutes excluding all procedures. The patient has seen and evaluated, the case has been discussed with the PA, I agree with the clinical findings and plan of care, time spend at the bedside mor e than 40 minutes. BABAK PARR Nov 20, 2024 09:28 CARRILLO FONG MD Nov 27, 2024 11:07
--- NOTE | 2024-11-20 10:01 | EKG ---
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
--- NOTE | 2024-11-20 10:06 | HMCIMG ---
Carotid Duplex and color-flow Doppler bilateral History: syncope Comparison: None Findings: No significant plaque is identified on either side. Left Internal Carotid Artery Peak Systolic Velocity (PSV), Left Internal Carotid to Common Carotid Artery peak systolic velocity ratio, Right Internal Carotid Artery Peak Systolic Velocity (PSV) and Right Internal Carotid to Common Carotid Artery peak systolic velocity ratio, are all within normal limits. External carotid artery velocities normal bilaterally. Bilateral vertebral arteries show antegrade flow. Impression: Normal exam. NASCET CRITERIA. The degree of internal carotid artery stenosis is based on NASCET criteria. Normal is no stenosis. Mild is less than 50% stenosis. Moderate is 50-69% stenosis. Severe is 70% to 99% stenosis. Total occlusion is no detectable patent lumen.
[2024-11-20 10:14] LABS: HEMATOCRIT 32.2 % (36-48); MEAN CORPUSCULAR HEMOGLOBIN 32.2 pg (27.0-33.0); MEAN CORPUSCULAR HGB CONC 33.9 g/dL (32.0-36.0); MEAN CORPUSCULAR VOLUME 95.3 fL (79-99); NUCLEATED RED BLOOD CELLS 0.5 % (0.0-0.19); RED BLOOD CELL COUNT(AUTO) 3.38 MIL/uL (4.00-5.50); RED CELL DISTRIBUTION WIDTH 13.3 % (11.0-15.5)
[2024-11-20 10:25] LABS: CREATININE 1.2 mg/dL (0.5-1.0); POTASSIUM 3.8 mmol/L (3.5-5.1)
[2024-11-20] MEDS: CEFTRIAXONE 2GM VIAL IVPB SCH (10:30)
[2024-11-20] MEDS: ENOXAPARIN SODIUM 30 MG/0.3 ML SQ SCH (10:30)
[2024-11-20 10:36] LABS: ALBUMIN 2.9 g/dL (3.5-5.0); BILIRUBIN,TOTAL 0.7 mg/dL (0.2-1.0); HEMOGLOBIN A1C 7.9 % (4.0-6.0); MAGNESIUM 1.7 mg/dL (1.80-2.40); THYROID STIMULATING HORMONE 0.71 uIU/mL (0.36-3.74); TOTAL PROTEIN, SERUM 6.5 g/dL (6.0-8.3)
--- NOTE | 2024-11-20 14:06 | HMCSR ---
APPROVED REPORT EXAM: Two-dimensional and M-mode echocardiogram with Doppler and color Doppler. INDICATION ICD: Syncope 2D Dimensions RVDd2.6 cmLVEF(%)65.2 (>50%)LVED Vol(simp.)60.8 mL IVSd1.0 (0.7-1.1cm)FS(%)35 %LVES Vol(simp.)20.9 mL LVDd3.7 (3.8-5.6cm)LA (2D)3.9 (1.6-4.0cm)LVEF(%, simp.)66 % PWd1.0 (0.7-1.1cm)Ao Root(2D)3.3 (2.0-3.7cm)LA ESV INDEX (4CH)17.60 mL/m2 IVSs1.3 cmLVOT diam2.0 (1.8-2.4cm)LA ESV INDEX (2CH)17.10 mL/m2 LVDs2.4 (2.5-4.0cm)LA ESV INDEX (BP)17.30 mL/m2 PWs1.4 cm M-Mode Dimensions EPSS0.6 cm LA (MM)5.2 (1.6-4.0cm) Ao Root(MM)3.1 (2.0-3.7cm) Aortic Valve AoV VTI0.3 mAo Mean GR5.0 mmHgLVOT VTI0.21 m JULIA (VMAX)2.2 cm2AVA (VTI) 2.2 cm2 Mitral Valve MV E Vmax68.9 cm/sDECEL Kvcj108 ms MV A Vmax74.7 cm/sP 1/2 T59 ms E/A ratio0.9MVA (PHT)3.7 cm2 TDI E/E' Usudxs59.1E/E' Lateral9.8 Medial E' Peak V3.60 cm/sLateral E' Peak V7.00 cm/s Pulmonary Valve PV VTI0.25 mPV Mean GR3 mmHg Left Ventricle The left ventricle structure and function is normal. There is normal LV segmental wall motion. Normal left ventricular systolic wall motion. There is normal left ventricular wall thickness. LVEF is 65-7 0%. The left ventricular diastolic function is normal. Right Ventricle The right ventricle is normal size. The right ventricular systolic function is normal. Atria The left atrium size is normal. The right atrium size is normal. Aortic Valve Aortic valve has mildly calcified nodular thickening. Aortic valve opens well. No aortic regurgitatio n is present. There is no aortic valvular stenosis. Mitral Valve The mitral valve is normal in structure and function. There is no mitral valve regurgitation noted. T here is no mitral valve stenosis. Tricuspid Valve The tricuspid valve is normal in structure and function. There is no tricuspid valve regurgitation no magui. Pulmonic Valve The pulmonary valve is normal in structure and function. There is no pulmonic valvular regurgitation. Great Vessels The aortic root is normal in size. The IVC is normal in size and collapses >50% with inspiration. Pericardium No pericardial effusion. Conclusion LVEF is 65-70%. No pericardial effusion.
[2024-11-20] MEDS: MAGNESIUM 2GM PREMIX 50ML 50 ML IV PRN (14:34)
[2024-11-20] MEDS: PoTASSium chloRIDE 20MEQ ER 20 MEQ ERTAB PO PRN (14:36)
--- NOTE | 2024-11-20 15:46 | NUR ---
DCP Pt awake, alert, oriented X3 lives with spouse Keyon Spencer. PCP is Dr Escalera. Pt has a cane, walker, and has a ramp available. Has [facility] services. Pt anticipates discharge is for home. Addendum: 11/20/24 at 1552 by CARISA ARREGUIN RN CM Amended: Links added.
--- NOTE | 2024-11-20 20:25 | NUR ---
ASSESS PT RESTING WELL IN BED. NO DISTRESS NOTED. NO COMPLAINTS VERBALIZED. SHIFT ASSESSMENT DONE, PLEASE REFER TO CHART. KEPT RESTED AND COMFORTABLE IN BED. CALL LIGHT WITHIN REACH.
[2024-11-21] VITALS: BP 144/76; PULSE 73; RESP 16; TEMP 98.5
[2024-11-21 04:00] VITALS: BP 133/69; PULSE 86; RESP 17; TEMP 99
--- NOTE | 2024-11-21 06:10 | NUR ---
ROUNDS PT SLEPT AT INTERVALS DURING THE SHIFT. NO CONCERNS VERBALIZED. NO DISTRESS NOTED. KEPT RESTED AND COMFORTABLE IN BED. CALL LIGHT WITHIN REACH. FOR MORE CARE.
[2024-11-21 06:31] LABS: CREATININE 1.1 mg/dL (0.5-1.0); MAGNESIUM 1.9 mg/dL (1.80-2.40); POTASSIUM 4.2 mmol/L (3.5-5.1)
[2024-11-21 08:00] VITALS: BP 142/77; PULSE 69; RESP 18; TEMP 97.8
[2024-11-21 08:30] VITALS: O2SAT 98
--- NOTE | 2024-11-21 10:51 | CONS ---
CONSULTATION NOTE Date of Service: Nov 21, 2024 Reason for Consultation: Evaluation of dizziness and loss of consciousness event Requesting Physician: Hospitalist HISTORY OF PRESENT ILLNESS: This is a liss 74 years old right-handed lady that has a past medical history remarkable for diabetes mellitus type 2, essential hypertension, dyslipidemia who was admitted for evaluation and management of loss consciousness event. The patient states being in his usual state of health and the date of admission with the patient had a sudden onset of lightheadedness. She was bending down doing gardening when suddenly the patient has loss of consciousness event. She stated that for the past several weeks to months she has been experiencing lightheadedness in association with generalized weakness and blurry vision. The patient denies any left-sided right-sided weakness numbness tingling sensation blurry vision or double vision. The patient also denies having jerking movements with a loss of consciousness event and no postictal confusion or disorientation. Laboratory on admission demonstrated a mild positive urinalysis she was diagnosed with a UTI and was started on IV antibiotic therapy ceftriaxone. The patient's symptoms have subsided. A CT scan of the head without contrast echocardiogram and carotid ultrasound were negative. REVIEW OF SYSTEMS CONSTITUTIONAL: Denies fever, chills, or fatigue. HEAD/FACE: No signs of trauma. EENT: Denies eye pain, blurred vision, double vision, or light sensitivity. RESPIRATORY: Denies shortness of breath, cough, wheezing CARDIOVASCULAR: Denies chest pain, palpitation, syncope GASTROINTESTINAL/ABDOMINAL: Denies abdominal pain, constipation, diarrhea, nausea or vomiting GENITOURINARY: Denies dysuria or hematuria. MUSCULOSKELETAL: Denies joint pain, tenderness, or trauma. INTEGUMENTARY: Denies rash or itchiness NEUROLOGICAL/PSYCH: Denies anxiety, depression, heat or cold intolerance. PAST MEDICAL HISTORY: As stated in HPI essential hypertension dyslipidemia and diabetes mellitus type 2 PAST SURGICAL HISTORY: Noncontributory PAST SOCIAL HISTORY: No tobacco alcohol recreational drug abuse FAMILY HISTORY: No family history of stroke or seizures Coded Allergies: No Allergy Information Available (Verified Allergy, Unknown, 06/20/16) lisinopril (Unverified Allergy, Unknown, 10/13/20) PHYSICAL EXAM Mental status: The patient is alert, attentive, and oriented. Speech is clear and fluent with good repetition, comprehension, and naming. Pt recalls 3/3 objects at 5 minutes. Cranial nerves: CN II: Visual marx are full to confrontation. CN III, IV, : At primary gaze, there is no eye deviation. CN V: Facial sensation is intact to pinprick in all 3 divisions bilaterally. Corneal responses are intact. CN VII: Face is symmetric with normal eye closure and smile. CN VIII: Hearing is normal to rubbing fingers CN IX, X: Palate elevates symmetrically. Phonation is normal. CN XI: Head turning and shoulder shrug are intact CN XII: Tongue is midline with normal movements and no atrophy. Motor: There is no pronator drift of out-stretched arms. Muscle bulk and tone are normal. Strength is full bilaterally. Reflexes: Reflexes are 2+ and symmetric at the biceps, triceps, knees, and ankles. Plantar responses are flexor. Sensory: Light touch, pinprick, position sense, and vibration sense are intact in fingers and toes. Coordination: Rapid alternating movements and fine finger movements are intact. There is no dysmetria on [id number] and [id number]. There are no abnormal or extraneous movements. Romberg is absent. Gait/Stance: Not evaluated Vital Sign (Last 24 Hours) 11/20/24 11/21/24 11/21/24 09:00 04:00 08:00 Temp 97.9 Pulse 69 Resp 18 B/P (MAP) 142/77 Pulse Ox 98 O2 Delivery Room Air O2 Flow Rate 0 FiO2 21 Intake & Output (last 24hrs) 11/20/24 11/20/24 11/21/24 15:00 23:00 07:00 Intake Total 440 ml 220 ml 900.0 ml Balance 440 ml 220 ml 900.0 ml LABS: Laboratory: Test 11/21/24 05:51 11/20/24 10:04 11/19/24 14:16 11/19/24 13:15 Range/Units Sodium Level 142 136-145 mmol/L Potassium Level 4.2 3.5-5.1 mmol/L Chloride Level 108 101-111 mmol/L Carbon Dioxide Level 27 21-32 mmol/L Blood Urea Nitrogen 16 7-18 mg/dL Creatinine 1.1 H 0.5-1.0 mg/dL Glomerular Filtration Rate Calc 53 >90 mL/min Random Glucose 165 H 70-105 mg/dL Total Calcium 8.8 8.5-10.1 mg/dL Magnesium Level 1.90 1.80-2.40 mg/dL White Blood Count 6.0 4.8-10.8 K/uL Red Blood Count 3.38 L 4.00-5.50 MIL/uL Hemoglobin 10.9 L 12.0-16.0 g/dL Hematocrit 32.2 L 36-48 % Mean Corpuscular Volume 95.3 79-99 fL Mean Corpuscular Hemoglobin 32.2 27.0-33.0 pg Mean Corpuscular Hemoglobin Concent 33.9 32.0-36.0 g/dL Red Cell Distribution Width 13.3 11.0-15.5 % Platelet Count 251 130-400 K/uL Mean Platelet Volume 9.6 7.5-10.5 fL Nucleated Red Blood Cells 0.5 H 0.0-0.19 % Hemoglobin A1c 7.9 H 4.0-6.0 % Estimated Average Glucose (eAG) 180 H 70-126 mg/dL Phosphorus Level 3.0 2.5-4.9 mg/dL Total Bilirubin 0.7 0.2-1.0 mg/dL Aspartate Amino Transf (AST/SGOT) 15 10-37 U/L Alanine Aminotransferase (ALT/SGPT) 10 L 12-78 U/L Alkaline Phosphatase 66 50-136 U/L Total Creatine Kinase 86 # 21-232 U/L Troponin I High Sensitivity 5 4-50 ng/L Total Protein 6.5 6.0-8.3 g/dL Albumin 2.9 L 3.5-5.0 g/dL Thyroid Stimulating Hormone (TSH) 0.71 # 0.36-3.74 uIU/mL Urine Color LIGHT-YELLOW YELLOW Urine Appearance CLEAR CLEAR Urine pH 5.5 5.0-8.0 Urine Specific [place] 1.006 1.001-1.031 Urine Protein NEGATIVE NEGATIVE mg/dL Urine Glucose (UA) NEGATIVE NEGATIVE mg/dL Urine Ketones NEGATIVE NEGATIVE mg/dL Urine Occult Blood NEGATIVE NEGATIVE Urine Nitrate NEGATIVE NEGATIVE Urine Bilirubin NEGATIVE NEGATIVE mg/dL Urine Urobilinogen 0.2 0.2-1.0 mg/dL Urine Leukocyte Esterase 25 H NEGATIVE Yue/uL Urine RBC 0-1 0-1 /HPF Urine WBC 2-5 H 0-1 /HPF Urine Squamous Epithelial Cells RARE 0-2 /HPF Urine Bacteria RARE None Seen /HPF Urine Hyaline Casts 2-5 H 0-1 /LPF /LPF Urine Other Casts 3 None Seen /LPF Immature Granulocyte % (Auto) 0.3 0-1 % Neutrophils (%) (Auto) 53.7 40.0-77.0 % Lymphocytes (%) (Auto) 33.2 21.0-51.0 % Monocytes (%) (Auto) 9.8 3.0-13.0 % Eosinophils (%) (Auto) 2.6 0.0-8.0 % Basophils (%) (Auto) 0.4 0.0-5.0 % Neutrophils # (Auto) 4.2 1.8-7.7 K/uL Lymphocytes # (Auto) 2.6 1.0-4.8 K/uL Monocytes # (Auto) 0.8 0.1-1.0 K/uL Eosinophils # (Auto) 0.20 0.00-0.70 K/uL Basophils # (Auto) 0.03 0.00-0.20 K/uL Absolute Immature Granulocyte (auto 0.02 0-1 K/uL Prothrombin Time 10.5 9.6-11.6 SEC Prothromb Time International Ratio <= 0.93 0.85-1.15 Activated Partial Thromboplast Time 24.1 L 26.3-35.5 SEC B-Type Natriuretic Peptide 123 H 0-100 pg/mL Influenza Type A Antigen Negative For Type A NEGATIVE Influenza Type B Antigen Negative For Type B NEGATIVE SARS-CoV-2, RNA, NAAT NEGATIVE SARS CoV-2 NEGATIVE DIAGNOSTICS / RADIOLOGY: CT scan of the head without contrast: Negative Carotid ultrasound: No significant stenosis Transthoracic echocardiogram: Normal ASSESSMENT / PLAN: 1).- syncope - based on the patient's history and physical examination it is likely that this patient had a syncopal event. No focal deficits to suspect a stroke or TIA. No jerking movements urinary incontinence tongue biting or postictal confusion and disorientation to suspect a seizure. The patient had a normal CT scan carotid ultrasound and echocardiogram. Possible volume depletion secondary to mild UTI now on IV fluids and IV antibiotic therapy continue IV hydration as started by primary team. The patient was educated her possible diagnosis. Awaiting Cardiology consultation prior to discharge. No further tests are needed from the neurological standpoint. Thank you for your consultation I will sign off. BRADLEY RAMIREZ MD Nov 21, 2024 10:51
--- NOTE | 2024-11-21 11:31 | NUR ---
PAGED ANSWERING SERVICE REGARDING NEW CONSULT, SPOKE WITH ADOLFO, SHE STATED SHE WILL BE SENDING PAGE OUT.
--- NOTE | 2024-11-21 11:34 | NUR ---
Nutritional Note: Chart, meds, and labs Reviewed. Pt denied any recent unintentional wt loss and/or poor appetite. Recommend: -continue current diet w/ restrictions -check iron for possible deficiencies, consider supplementation if needed. -[place] 3 supplement -Glucerna 1 can PRN and/or IF PO intake <50% - Electrolyte replacements per protocol -Monitor feeding tolerance, %, wt, and labs -If No BM >3days consider bowel stimulant. -Schedule outpatient RD f/u for long-term nutrition care. - Please notify RD if additional nutrition concerns arise. SEE RD Nutritional Assessment for additional assessment information. Addendum: 11/21/24 at [address] Amended: Links added.
--- NOTE | 2024-11-21 11:42 | PN ---
[facility] PROGRESS NOTE Date Patient Seen: Nov 21, 2024 Time of Visit: 11:34 Supervising Physician: [Dr. Fong] Primary Care Physician: Dr. Escalera Outpatient Specialists: Inpatient Consults: [facility] Neurology PROBLEM LIST: Syncope episode, POA pending workup Acute complicated cystitis, POA pending urine culture Acute kidney injury, POA treated Acute on chronic kidney disease, GFR 31 Elevated BNP Anemia of chronic disease Diabetes mellitus with hyperglycemia Hypertension Hypercholesteremia History of remote TIA History of remote splenectomy Plan: Continue hydration with IVF Echocardiogram and carotid doppler normal Pending cardiology consult Appreciate neurology recommendation Continue Rocephin empirically, deescalate as warranted Resume home meds once available Further management per hospital course Disposition TBD INTERVAL HISTORY: [Patient with a PMH of diabetes, hypertension, hyperlipidemia and GERD was admitted for evaluation of syncope. She was outside gardening and feel dizzy as she was standing from squatting position. States one episode previously as a young adult. No cardiac hx or A-fib. No prior strokes, no hx of seizures. Patient follows Dr. Parnell outpatient states last visit was about 2 years ago. Admits feeling dizzy on/off for the last two weeks but no chest pain or palpitations. She was given a dose of Rocephin and1 L NS in the ED. Her labs on admission were remarkable for elevated creatinine at 1.7, CK was 138, troponin was negative, BNP was 123. COVID and flu swabs were negative. Her UA was positive for small LE, CT of the head was negative for ICH. CXR was within normal limits. She continues hydration with IVF. She is pending an echocardiogram, carotid Doppler. Cardiology and Neurology were consulted, pending evaluation. No fever, cough, nausea/vomiting or diarrhea. She is clinically dry.] 11/21 blood pressure 142/77 with a heart rate of 69, afebrile on room air. WBCs 6, hemoglobin 10, platelets 251. BNP is within normal limits with a creatinine of 1.1, no current electrolyte derangement. Magnesium was 1.9. TSH is normal at 0.7, troponin has remained negative. CK is 86. Her carotid Doppler was normal without significant stenosis. Echocardiogram shows an EF of 65-70% and is otherwise within normal limits, no pericardial effusion. Patient was evaluated by Neurology and is suspecting a syncopal event secondary to volume depletion with superimposed UTI which she is currently being managed for. We are awaiting Cardiology consult for evaluation. REVIEW OF SYSTEMS: 12 point ROS reviewed with patient. Pertinent positives mentioned above. Otherwise negative. PHYSICAL EXAM: GENERAL: alert, weak, awake oriented x 3, dehydrated HEENT: EOMI, Sclera non icteric, moist mucosa NECK: Supple, no JVD, trachea midline LUNGS: Clear breath sounds bilaterally. No wheezes HEART: Regular rate and rhythm. Normal S1 and S2, without murmurs ABD: Abdomen soft, nontender. Bowel sounds present EXT: No clubbing cyanosis or edema NEURO: Alert and oriented to person, follows commands Vital Signs (last 8hr) Date Time Temp Pulse Resp B/P (MAP) Pulse Ox O2 Delivery O2 Flow Rate FiO2 11/21/24 08:00 97.9 69 18 142/77 98 11/21/24 04:00 99.0 86 17 133/69 96 Room Air LABS: Hematology Labs: Test 11/20/24 10:04 11/19/24 13:15 Range/Units White Blood Count 6.0 4.8-10.8 K/uL Red Blood Count 3.38 L 4.00-5.50 MIL/uL Hemoglobin 10.9 L 12.0-16.0 g/dL Hematocrit 32.2 L 36-48 % Mean Corpuscular Volume 95.3 79-99 fL Mean Corpuscular Hemoglobin 32.2 27.0-33.0 pg Mean Corpuscular Hemoglobin Concent 33.9 32.0-36.0 g/dL Red Cell Distribution Width 13.3 11.0-15.5 % Platelet Count 251 130-400 K/uL Mean Platelet Volume 9.6 7.5-10.5 fL Nucleated Red Blood Cells 0.5 H 0.0-0.19 % Immature Granulocyte % (Auto) 0.3 0-1 % Neutrophils (%) (Auto) 53.7 40.0-77.0 % Lymphocytes (%) (Auto) 33.2 21.0-51.0 % Monocytes (%) (Auto) 9.8 3.0-13.0 % Eosinophils (%) (Auto) 2.6 0.0-8.0 % Basophils (%) (Auto) 0.4 0.0-5.0 % Neutrophils # (Auto) 4.2 1.8-7.7 K/uL Lymphocytes # (Auto) 2.6 1.0-4.8 K/uL Monocytes # (Auto) 0.8 0.1-1.0 K/uL Eosinophils # (Auto) 0.20 0.00-0.70 K/uL Basophils # (Auto) 0.03 0.00-0.20 K/uL Absolute Immature Granulocyte (auto 0.02 0-1 K/uL Chemistry Labs: Test 11/21/24 05:51 11/20/24 10:04 11/19/24 13:15 Range/Units Sodium Level 142 136-145 mmol/L Potassium Level 4.2 3.5-5.1 mmol/L Chloride Level 108 101-111 mmol/L Carbon Dioxide Level 27 21-32 mmol/L Blood Urea Nitrogen 16 7-18 mg/dL Creatinine 1.1 H 0.5-1.0 mg/dL Glomerular Filtration Rate Calc 53 >90 mL/min Random Glucose 165 H 70-105 mg/dL Total Calcium 8.8 8.5-10.1 mg/dL Magnesium Level 1.90 1.80-2.40 mg/dL Hemoglobin A1c 7.9 H 4.0-6.0 % Estimated Average Glucose (eAG) 180 H 70-126 mg/dL Phosphorus Level 3.0 2.5-4.9 mg/dL Total Bilirubin 0.7 0.2-1.0 mg/dL Aspartate Amino Transf (AST/SGOT) 15 10-37 U/L Alanine Aminotransferase (ALT/SGPT) 10 L 12-78 U/L Alkaline Phosphatase 66 50-136 U/L Total Creatine Kinase 86 # 21-232 U/L Troponin I High Sensitivity 5 4-50 ng/L Total Protein 6.5 6.0-8.3 g/dL Albumin 2.9 L 3.5-5.0 g/dL Thyroid Stimulating Hormone (TSH) 0.71 # 0.36-3.74 uIU/mL B-Type Natriuretic Peptide 123 H 0-100 pg/mL Coagulation Labs: Test 11/19/24 13:15 Range/Units Prothrombin Time 10.5 9.6-11.6 SEC Prothromb Time International Ratio <= 0.93 0.85-1.15 Activated Partial Thromboplast Time 24.1 L 26.3-35.5 SEC DIAGNOSTICS / RADIOLOGY RESULTS: Carotid Duplex and color-flow Doppler bilateral History: syncope Comparison: None Findings: No significant plaque is identified on either side. Left Internal Carotid Artery Peak Systolic Velocity (PSV), Left Internal Carotid to Common Carotid Artery peak systolic velocity ratio, Right Internal Carotid Artery Peak Systolic Velocity (PSV) and Right Internal Carotid to Common Carotid Artery peak systolic velocity ratio, are all within normal limits. External carotid artery velocities normal bilaterally. Bilateral vertebral arteries show antegrade flow. Impression: Normal exam. Left Ventricle The left ventricle structure and function is normal. There is normal LV segmental wall motion. Normal left ventricular systolic wall motion. There is normal left ventricular wall thickness. LVEF is 65-70%. The left ventricular diastolic function is normal. Right Ventricle The right ventricle is normal size. The right ventricular systolic function is normal. Atria The left atrium size is normal. The right atrium size is normal. Aortic Valve Aortic valve has mildly calcified nodular thickening. Aortic valve opens well. No aortic regurgitation is present. There is no aortic valvular stenosis. Mitral Valve The mitral valve is normal in structure and function. There is no mitral valve regurgitation noted. There is no mitral valve stenosis. Tricuspid Valve The tricuspid valve is normal in structure and function. There is no tricuspid valve regurgitation noted. Pulmonic Valve The pulmonary valve is normal in structure and function. There is no pulmonic valvular regurgitation. Great Vessels The aortic root is normal in size. The IVC is normal in size and collapses >50% with inspiration. Pericardium No pericardial effusion. Conclusion LVEF is 65-70%. No pericardial effusion. PLAN Admit to medical floor with telemetry monitoring. Consult Neurology and Cardiology. Carotid Dopplers in a.m.. Rocephin 2 g daily. Gentle IV fluid hydration. 2D echo in a.m.. EKG and troponin series. P.r.n. medications for: Pain management, fever, nausea, vomiting, hypertension, constipation. Reconcile medications Blood pressure checks every4 hours and as needed. Glucometer checks a.c. and HS with insulin regular sliding scale. Monitor renal and liver function. Monitor electrolytes and treat accordingly. A.m. labs: CBC, BNP, Mag, phos, TSH, A1c, troponin DVT and GI prophylaxis. NEURO: Minimize central acting medications as possible. Maintain fall precautions, adequate lighting during the day PULMONARY: Supplemental 02 as needed. Maintain aspiration precautions at all times CARDIOVASCULAR: Follow hemodynamics. Vital signs per facility protocol GI & NUTRITION: Continue with nutritional support. Continue stool softeners and laxatives as needed. KIDNEYS & ELECTROLYTES: Strict monitoring of intake, output and overall fluid balance. Avoid nephrotoxic medications to the extent possible. Medications to be dosed according to renal function. Monitor electrolytes and replace as needed ENDOCRINE: Maintain blood glucose between 100-180 at all times. Hypoglycemia protocol in place INFECTIOUS DISEASE: Trend temperature, WBC and procalcitonin level Follow cultures, deescalate antibiotics as soon as possible. Panculture if new onset fever ONCOLOGY/HEMATOLOGY/COAGULATION: Monitor for s/s of bleeding Monitor hemoglobin, coagulation studies as needed SKIN: Pressure ulcer prevention per facility protocol Specialty mattress ORTHO/REHAB: Continue PT/OT Prophylaxis: Continue GI and DVT prophylaxis Code Status: Full Resuscitation Disposition: TBD The patient has seen and evaluated, the case has been discussed with the PA, I agree with the clinical findings and plan of care, time spend at the bedside more than 40 minutes. BABAK PARR Nov 21, 2024 11:41 CARRILLO FONG MD Nov 27, 2024 10:16
[2024-11-21 12:00] VITALS: BP 144/56; PULSE 71; RESP 18; TEMP 99.5
[2024-11-21 16:00] VITALS: BP 150/77; PULSE 67; RESP 18; TEMP 97.9
--- NOTE | 2024-11-21 18:12 | DS ---
[facility] DISCHARGE SUMMARY Date Patient Seen: Nov 21, 2024 Time of Visit: 18:11 Supervising Physician: [Dr. Fong] Primary Care Physician: Dr. Escalera Outpatient Specialists: Inpatient Consults: [facility] Neurology PROBLEM LIST: Syncope episode, POA pending workup Acute complicated cystitis, POA pending urine culture Acute kidney injury, POA treated Acute on chronic kidney disease, GFR 31 Elevated BNP Anemia of chronic disease Diabetes mellitus with hyperglycemia Hypertension Hypercholesteremia History of remote TIA History of remote splenectomy Plan: Follow up with cardiology outpatient for evaluation and recommendation HPI (per admitting provider)Ms. Spencer is a 74-year-old female presented to [facility] ED evaluation of syncope. The patient reported that she went outside to water the grass and was out there only 5 minutes. She reported that her stood at the door to watch her. She reported that she squatted down to connect the hose, felt a dizzy spell, and the next thing she remembers is being in an ambulance. The daughter at bedside reported that the patient's stated that he saw when she fainted and asked the provider to assist the patient. (He has had recent surgery and could not pick her up by himself.) The patient reports that she fainted one other time when she was in her 20s, but has not fainted since then. She states before she fainted she had done couple toes. She ate a good breakfast. In the fainting spell was a little after nine after the chores. The patient reports that she was in this hospital and Dr. Parnell saw her. She stated she does not remember why cardiology saw her, but that she continued to f/u with car mover's PA for a while then stopped going. She has not seen cardiology for about 3 years. Remarkable lab results: Hemoglobin 11.8, hematocrit 34.2, RBC 3.65, BUN 24, creatinine 1.7, GFR 31 (most recent GFR 08/09/2024 was 37. On 12/19/2012 GFR was 44.), glucose 122, BNP 123. UA positive for leuk EST. CT head/ brain w out contrast: Diffuse atrophy. No acute intracranial bleed. Nonspecific white matter changes. HOSPITAL COURSE: Patient with a PMH of diabetes, hypertension, hyperlipidemia and GERD was admitted for evaluation of syncope. She was outside gardening and feel dizzy as she was standing from squatting position. States one episode previously as a young adult. No cardiac hx or A-fib. No prior strokes, no hx of seizures. Patient follows Dr. Parnell outpatient states last visit was about 2 years ago. Admits feeling dizzy on/off for the last two weeks but no chest pain or palpitations. She was given a dose of Rocephin and1 L NS in the ED. Her labs on admission were remarkable for elevated creatinine at 1.7, CK was 138, troponin was negative, BNP was 123. COVID and flu swabs were negative. Her UA was positive for small LE, CT of the head was negative for ICH. CXR was within normal limits. She continues hydration with IVF. Cardiology and Neurology were consulted, pending evaluation. No fever, cough, nausea/vomiting or diarrhea.] Her carotid Doppler was normal without significant stenosis. Echocardiogram shows an EF of 65-70% and is otherwise within normal limits, no pericardial effusion. Patient was evaluated by Neurology and is suspecting a syncopal event secondary to volume depletion. She was hydrated with IVF and remained asymptomatic while hospitalized. She denied any chest pain, palpitations, nausea, vomiting or dizziness. Remained in normal sinus rhythm without arrhythmia. Admits feeling back to baseline, was able to ambulate on her own, eating and tolerating diet without complication. Cardiology was consulted but was not able to see the patient prior to discharge. Given resolution of symptoms and suspected underlying hypovolemic syncope, she was advised to follow up with cardiology for outpatient evaluation. She verbalized understanding. 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 PCP notified of patients admission, hospital course and discharge. Continued Medications: Amlodipine Besylate/Benazepril (Amlodipine-Benazepril 2.5-10) 2.5 Mg-10 Mg Capsule 1 CAP PO DAILY for 30 Days, #30 CAP 0 Refills Aspirin (Aspirin 81MG Chew Tab) 81 Mg Tab.chew 1 TAB PO DAILY for 30 Days, #30 TAB 0 Refills Atorvastatin Calcium (Atorvastatin Calcium) 20 Mg Tablet 10 MG PO HS for 30 Days, #30 TAB 0 Refills Carvedilol (Carvedilol) 25 Mg Tablet 1 TAB PO BID for 30 Days, #60 TAB 0 Refills Furosemide (Furosemide) 20 Mg Tablet 20 MG PO QTUTHSA, TAB Omeprazole (Omeprazole) 20 Mg Capsule.dr 1 CAP PO DAILY for 30 Days, #30 CAP 0 Refills PHYSICAL EXAM: GENERAL: alert, weak, awake oriented x 3, dehydrated HEENT: EOMI, Sclera non icteric, moist mucosa NECK: Supple, no JVD, trachea midline LUNGS: Clear breath sounds bilaterally. No wheezes HEART: Regular rate and rhythm. Normal S1 and S2, without murmurs ABD: Abdomen soft, nontender. Bowel sounds present EXT: No clubbing cyanosis or edema NEURO: Alert and oriented to person, follows commands FOLLOW-UP: F/U with PCP in 2-3 days for reevaluation. F/U with cardiology outpatient for evaluation and recommendation. Continue medications as prescribed. RECOMMENDATIONS: See Discharge Instructions This case was seen and discussed with my supervising physician. More than 30 minutes spent on discharge process, including evaluation of the patient, discussion with nursing staff, medication reconciliation and follow-up appointments The patient has seen and evaluated, the case has been discussed with the PA, I agree with the clinical findings and plan of care, time spend at the bedside more than 40 minutes. BABAK PARR Nov 21, 2024 18:12 CARRILLO FONG MD Nov 27, 2024 10:17
--- NOTE | 2024-11-21 18:48 | NUR ---
DISCHARGE PATIENT HAS BEEN DISCHARGED HOME. PIV REMOVED. PRESSURE GAUZE AND TAPE APPLIED TO SITE. PATIENT VERBALIZES UNDERSTANDING OF DISCHARGE PAPERWORK. PATIENT IS TO FOLLOW UP WITH DR EPPERSON OUT PATIENT, PATIENT PROVIDED WITH PHONE NUMBER. PATIENT WHEELED DOWN TO PRIVATE AUTOMOBILE, ACCOMPANIED BY ANA LITTLE.
[2024-11-21] MEDS ORDERED: FAMOTIDINE 20MG TAB PO SCH (21:00)
== END 2024-11-21 18:50 | disposition home or self-care (01) ==
LOC: EDH 12:46 → EDHIP 17:03 → 3DH 22:05
PROVIDERS: ADMIT Internal Medicine Critical Care Medicine; ATTEND Internal Medicine Critical Care Medicine
DX: R55 Syncope and collapse (principal); I12.9 Hypertensive chronic kidney disease with stage 1 through stage 4 chronic kidney disease, or unspecified chronic kidney disease; E11.22 Type 2 diabetes mellitus with diabetic chronic kidney disease; N18.9 Chronic kidney disease, unspecified; D63.1 Anemia in chronic kidney disease; N30.00 Acute cystitis without hematuria; N17.9 Acute kidney failure, unspecified; K21.9 Gastro-esophageal reflux disease without esophagitis; R79.89 Other specified abnormal findings of blood chemistry; E78.00 Pure hypercholesterolemia, unspecified; E78.49 Other hyperlipidemia; H53.8 Other visual disturbances; E11.65 Type 2 diabetes mellitus with hyperglycemia; E86.0 Dehydration; K59.00 Constipation, unspecified; Z20.822 Contact with and (suspected) exposure to COVID-19; Z86.73 Personal history of transient ischemic attack (TIA), and cerebral infarction without residual deficits; Z90.81 Acquired absence of spleen; Z79.899 Other long term (current) drug therapy; Z98.890 Other specified postprocedural states
CPT/HCPCS: 96376; 96361 ×5; 99285; 82550 ×2; 83735 ×3; 84484 ×3; 80048 ×2; 83880; 85025; 85610; 85730; 87804 ×2; 82948 ×8; 81001; 36415 ×3; 87635; 71045; 70450; 93005 ×2; 96372 ×2; 96365; 96366 ×2; 96367; 83036; 84443; 84100; 80053; 85027; 93306; 93880; G0378 ×49; J7030 ×2; J0696 ×3; J3475 ×2; J1650 ×2; J1815 ×2

== ENCOUNTER 2025-03-28 10:34 | Emergency (ER) | payer OTHER, MEDICARE ==
[~2025-03-28] VITALS: Ht 160 cm; Wt 60.3 kg
[~2025-03-28 10:34] MED LIST changes: +AMLO1CAP87 PO; +ASPI-1005 PO; +ATOR20TA65 PO; +CARV25TA PO; -CEPH500T PO; +FURO20TA4 PO; -IBUP-2076 PO; +INSU100C14 SQ; +INSU3INS3 SQ; -ISOP30DR11 OT; -MACR100 PO; -MECL-226 PO; -MECL-302 PO; +OMEP20CA12 PO; +SEMA1PEN3 SQ
[2025-03-28] MEDS: acetaMINOPHEN 325 MG TAB PO STA (11:22)
--- NOTE | 2025-03-28 11:33 | ERN ---
ED Note History of Present Illness Stated Complaint: FALL, HEAD AND KNEE INJURY Chief Complaint: Headache Time Seen by MD: 10:57 Time Seen by Midlevel: 11:00 Dictation: 74-year-old female with a history of hypertension coming in with complaints of headache and left knee pain. Patient states she had a fall on Saturday ground level. Patient states her knee gave out and fell to the left side hitting her head on the concrete. Denies any LOC denies any blood thinners. Patient states she has not had a problem with her knee for the last couple of months but has not been evaluated. Allergies: Coded Allergies: No Allergy Information Available (Verified Allergy, Unknown, 06/20/16) lisinopril (Unverified Allergy, Unknown, 10/13/20) Home Meds Reported Medications Insulin Lispro (Humalog) 100 Unit/Ml Cartridge, 12 UNITS SQ BID, CARTRIDGE 02/03/25 Insulin Glargine,Hum.rec.anlog (Lantus Solostar) 100 Unit/Ml (3 Ml) Insuln.pen, 22 UNIT SQ HS for 30 Days, ML 0 Refills 02/03/25 Semaglutide (Ozempic) 1 Mg/0.75 Ml (4 Mg/3 Ml) Pen.injctr, 1 MG SQ QWEEK for 30 Days, #3 ML 0 Refills 02/03/25 Carvedilol (Carvedilol) 25 Mg Tablet, 1 TAB PO BID for 30 Days, #60 TAB 0 Refills 11/19/24 Omeprazole (Omeprazole) 20 Mg Capsule.dr, 1 CAP PO DAILY for 30 Days, #30 CAP 0 Refills 11/19/24 Amlodipine Besylate/Benazepril (Amlodipine-Benazepril 2.5-10) 2.5 Mg-10 Mg Capsule, 1 CAP PO DAILY for 30 Days, #30 CAP 0 Refills 11/19/24 Aspirin (ASPIRIN 81MG CHEW TAB) 81 Mg Tab.chew, 1 TAB PO DAILY for 30 Days, #30 TAB 0 Refills 11/19/24 Atorvastatin Calcium (Atorvastatin Calcium) 20 Mg Tablet, 10 MG PO HS for 30 Days, #30 TAB 0 Refills 11/19/24 Furosemide (Furosemide) 20 Mg Tablet, 20 MG PO QTUTHSA, TAB 11/19/24 Past Medical History Past Medical History: Diabetes-Type II, High Cholesterol, Hypertension Additional Past Medical Hx: HYPERLIPIDEMIA Surgical History: Cholecystectomy Surgical History Other: SPLENECTOMY Family History: Negative Social History: Negative History: Not Applicable Review of System Dictation Constitutional: Negative for fever,chills, and weight loss Eyes: Negative for injury, pain,redness, and discharge ENT: Negative for injury,pain or swelling Cardiovascular: Negative for chest pain, palpitations, and edema Respiratory: Negative for shortness of breath, cough, and wheezing, Abdomen/GI: Negative for abdominal pain, nausea, vomiting, diarrhea, and consti pation Back: Negative for injury and pain : Negative for injury, bleeding and discharge MS/Extremity: Complaining of left knee pain Skin: Negative for rash, and discoloration Neuro: Positive for headache, no weakness, no numbness, no tingling, and no s eizure Psych: Negative for suicide ideation, homicidal ideation, and hallucinations Review of Systems: was completed Initial Vital Sign VS Vital Signs Date Time Temp Pulse Resp B/P (MAP) Pulse Ox O2 Delivery O2 Flow Rate FiO2 03/28/25 10:58 98.1 67 18 148/55 98 Room Air 0 Physical Exam Dictation General: awake, alert, NAD Head/Face: Normocephalic, atraumatic Eyes: PERRL, EOMI, vision at baseline ENT: oral cavity clear, TMs clear, no signs of infection Neck: Trachea midline, supple, no nuchal rigidity Cardiovascular: RRR, normal S1/S2, No MRGs, no JVD Respiratory: CTAB, no respiratory distress, No rales or wheezes Abdomen: Soft, non-tender, non-distended, normal bowel sounds, no guarding or rebound. Skin: Warm, dry, normal turgor, no rash MS/Extremity: Pulses equal, no cyanosis, neurovascular intact, FROM Neuro: COAx4, GCS 15, strength 5/5, CN 2-12 intact, normal cerebellar exam, normal gait, Psych: Normal behavior, mood, and affect normal Results (Laboratory/Radiology) Labs Reviewed?: Yes X-RAY Comment: [place] [id number] [place] [id number] IMAGING REPORT Signed PATIENT: ZARI POTTER MR#: [id number] : 1950 SEX: F AGE: 74 LOCATION: ED ORDER 02 STATUS: REG ER [facility] REPORT#: [id number] SERVICE 01 REASON: fall, pain ORDERING PHYSICIAN: VIDHI DUNLAP NP PROCEDURE: KNEE 3V LT - KNEE 3VWS LT KNEE 3VWS LT HISTORY: Status post fall COMPARISON: None TECHNIQUE: 3 images of the left knee were obtained. FINDINGS: There is no acute displaced fracture or dislocation. Degenerative changes are seen. IMPRESSION: 1. Findings as described above. DICTATED BY: JANET SERRANO MD DATE: 03/28/25 114 ELECTRONICALLY SIGNED BY: JANET SERRANO MD DATE: 03/28/251146 CT Scan Comment: [address] [id number] IMAGING REPORT Signed PATIENT: ZARI POTTER MR#: [id number] : 1950 SEX: F AGE: 74 LOCATION: ED ORDER 02 STATUS: REG ER REPORT#: [id number] SERVICE 110 REASON: fall/headache ORDERING PHYSICIAN: VIDHI DUNLAP NP PROCEDURE: HEAD WO - CT HEAD/BRAIN W/O CONTRAST CT HEAD/BRAIN W/O CONTRAST HISTORY: Status post fall COMPARISON: None TECHNIQUE: Multiple sequential axial images of the head were obtained from the base of the skull through vertex. Patient was not given contrast through intravenous route. FINDINGS: The ventricles and extraventricular CSF spaces are dilated consistent with cerebral atrophy. Nonspecific white matter changes seen. There is no midline shift, mass effect or herniation. No acute intracranial bleed is seen. Visualized portion of the paranasal sinuses are grossly within normal limits. IMPRESSION: 1. No acute intracranial bleed is seen. 2. Atrophy with white matter changes. CT was performed with one or more following dose reduction techniques: automated exposure control, adjustment of the mA and kv according to patient's size, or use of a iterative reconstruction technique. DICTATED BY: JANET SERRANO MD DATE: 03/28/25 1139 ELECTRONICALLY SIGNED BY: JANET SERRANO MD DATE: 03/28/25 1142 ED Course ED Course Orders Procedure Category Date Status Time Ct Head/Brain W/O CT 03/28/25 Resulted Contrast 11:02 Knee 3vws Lt RAD 03/28/25 Resulted 11:02 Acetaminophen 325 Tab PHA 03/28/25 Complete (Tylenol 325mg Tab 11:02 Current Medications Medications (Trade) Dose Ordered Sig/Juan David Route PRN Reason Start Time Stop Time Status Last Admin Dose Admin Acetaminophen (TYLenol 325MG TAB) 650 mg ONCE STAT PO 03/28/25 11:02 03/28/25 11:10 DC 03/28/25 11:22 Vital Signs Date Time Temp Pulse Resp B/P (MAP) Pulse Ox O2 Delivery O2 Flow Rate FiO2 03/28/25 10:58 98.1 67 18 148/55 98 Room Air 0 Medical Decision Making MDM MDM: 74-year-old female with a history of hypertension coming in with complaints of headache and left knee pain. Patient states she had a fall on Saturday ground level. Patient states her knee gave out and fell to the left side hitting her head on the concrete. Denies any LOC denies any blood thinners. Patient states she has not had a problem with her knee for the last couple of months but has not been evaluated. Knee x-ray shows no acute findings and CT scan of the head shows no acute findings. Patient will have knee immobilizer placed here in the emergency room and have her follow up with PCP. Educated she needs further evaluation with the orthopedic for further imaging as this could be of tendon or ligament etiology. Patient verbalized understanding, answered all questions. Differential diagnosis: SDH, knee dislocation, knee contusion, Rationale: Tests considered and ordered secondary to shared decision making include: Previous outside records reviewed: Old ER visits. Risk of complication and/or morbidity or mortality of patient management: None Medications-Per medication reconciliation Need for hospitalization: Patient does not meet criteria for hospitalization. Need for emergency major/minor surgery: No There are no social concerns with this patient. Prescription drug management Prescriptions will include symptomatic care Patient's prior external medical records from other ER visits were reviewed by me as indicated. Prior testing and results from previous visits were reviewed. Prior tests were taken into account with medical decision making and resource utilization, independent historian/historians were used to obtain complete medical history. I independently interpreted the test that were performed, results were reviewed by me and considered findings on radiology if ordered. Medical management and examination interpretation discussions were had by me with other qualified healthcare professionals as indicated for the patient's care. DX & DISP Disposition: Discharge Departure Impression: Primary Impression: Degenerative joint disease of left knee Additional Impression: Head contusion Condition: Stable Additional Instructions: Take Tylenol or Motrin [id number] for pain control. Follow up with PCP and gave referral for a specialist. If any symptoms worsen please return to the emergency room. Referrals: CAROLEE CORDOBA MD (PCP) Time of Disposition: 12:32 I have reviewed the case, and I agree with, Diagnosis and Plan VIDHI DUNLAP NP March 28, 2025 11:32
--- NOTE | 2025-03-28 11:42 | HMCIMG ---
CT HEAD/BRAIN W/O CONTRAST HISTORY: Status post fall COMPARISON: None TECHNIQUE: Multiple sequential axial images of the head were obtained from the base of the skull through vertex. Patient was not given contrast through intravenous route. FINDINGS: The ventricles and extraventricular CSF spaces are dilated consistent with cerebral atrophy. Nonspecific white matter changes seen. There is no midline shift, mass effect or herniation. No acute intracranial bleed is seen. Visualized portion of the paranasal sinuses are grossly within normal limits. IMPRESSION: 1. No acute intracranial bleed is seen. 2. Atrophy with white matter changes. CT was performed with one or more following dose reduction techniques: automated exposure control, adjustment of the mA and kv according to patient's size, or use of a iterative reconstruction technique.
--- NOTE | 2025-03-28 11:47 | HMCIMG ---
KNEE 3VWS LT HISTORY: Status post fall COMPARISON: None TECHNIQUE: 3 images of the left knee were obtained. FINDINGS: There is no acute displaced fracture or dislocation. Degenerative changes are seen. IMPRESSION: 1. Findings as described above.
[2025-03-28 13:06] VITALS: BP 141/59; PULSE 65; RESP 18; TEMP 98.1; O2SAT 98
== END 2025-03-28 13:10 | disposition home or self-care (01) ==
LOC: EDH 10:34
DX: S00.93XA Contusion of unspecified part of head, initial encounter (principal); M17.12 Unilateral primary osteoarthritis, left knee; E11.9 Type 2 diabetes mellitus without complications; E78.00 Pure hypercholesterolemia, unspecified; I10 Essential (primary) hypertension; Z79.4 Long term (current) use of insulin; Z79.82 Long term (current) use of aspirin; Z79.85 Long-term (current) use of injectable non-insulin antidiabetic drugs; Z79.899 Other long term (current) drug therapy; Z88.8 Allergy status to other drugs, medicaments and biological substances; Z90.49 Acquired absence of other specified parts of digestive tract; W18.39XA Other fall on same level, initial encounter; Y93.89 Activity, other specified; Y92.89 Other specified places as the place of occurrence of the external cause; Y99.8 Other external cause status
CPT/HCPCS: 29505; 70450; 73562; 99284

== ENCOUNTER 2025-07-04 01:23 | Emergency (ER) | payer MEDICAID, MEDICARE, OTHER ==
[~2025-07-04] VITALS: Ht 152.4 cm; Wt 65.8 kg
--- NOTE | 2025-07-04 01:51 | EKG ---
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
[2025-07-04 02:08] LABS: IMMATURE GRANULOCYTE ABSOLUTE 0.03 K/uL (0-1); NUCLEATED RED BLOOD CELLS 0.0 % (0.0-0.19); PLATELET COUNT (AUTO) 228 K/uL (130-400); RED BLOOD CELL COUNT(AUTO) 3.30 MIL/uL (4.00-5.50); RED CELL DISTRIBUTION WIDTH 13.7 % (11.0-15.5); WHITE BLOOD COUNT (AUTO) 7.5 K/uL (4.8-10.8)
[2025-07-04 02:15] LABS: CREATININE 1.5 mg/dL (0.5-1.0); GLOMERULAR FILTR. RATE CALC 36.0 mL/min (>90); GLUCOSE,RANDOM 165.0 mg/dL (70-105); SODIUM SERUM 136.0 mmol/L (136-145); UREA NITROGEN, BLOOD 23.0 mg/dL (7-18)
--- NOTE | 2025-07-04 02:32 | ERN ---
ED Note History of Present Illness Stated Complaint: GLUCOSE 80 Chief Complaint: Hypoglycemia Time Seen by MD: :26 Time Seen by Midlevel: 01:26 Dictation: The patient is a 75-year-old female with a history of diabetes, hypertension who presents to the emergency department with complaints of weakness and hypoglycemia. Patient reports that she has been having problems with her glucose with a past two weeks but her PCP has not change any of her medications. Patient reports that today her lowest blood glucose was 58. Patient otherwise denies any recent illness, denies any nausea vomiting diarrhea fevers, denies any chest pain or shortness of breath. Patient does not recall what medication she takes for her diabetes and did not bring her medications today. Allergies: Coded Allergies: No Allergy Information Available (Verified Allergy, Unknown, 06/20/16) lisinopril (Unverified Allergy, Unknown, 10/13/20) Home Meds Reported Medications Insulin Lispro (Humalog) 100 Unit/Ml Cartridge, 12 UNITS SQ BID, CARTRIDGE 02/03/25 Insulin Glargine,Hum.rec.anlog (Lantus Solostar) 100 Unit/Ml (3 Ml) Insuln.pen, 22 UNIT SQ HS for 30 Days, ML 0 Refills 02/03/25 Semaglutide (Ozempic) 1 Mg/0.75 Ml (4 Mg/3 Ml) Pen.injctr, 1 MG SQ QWEEK for 30 Days, #3 ML 0 Refills 02/03/25 Carvedilol (Carvedilol) 25 Mg Tablet, 1 TAB PO BID for 30 Days, #60 TAB 0 Refills 11/19/24 Omeprazole (Omeprazole) 20 Mg Capsule.dr, 1 CAP PO DAILY for 30 Days, #30 CAP 0 Refills 11/19/24 Amlodipine Besylate/Benazepril (Amlodipine-Benazepril 2.5-10) 2.5 Mg-10 Mg Capsule, 1 CAP PO DAILY for 30 Days, #30 CAP 0 Refills 11/19/24 Aspirin (ASPIRIN 81MG CHEW TAB) 81 Mg Tab.chew, 1 TAB PO DAILY for 30 Days, #30 TAB 0 Refills 11/19/24 Atorvastatin Calcium (Atorvastatin Calcium) 20 Mg Tablet, 10 MG PO HS for 30 Days, #30 TAB 0 Refills 11/19/24 Furosemide (Furosemide) 20 Mg Tablet, 20 MG PO QTUTHSA, TAB 11/19/24 Past Medical History Past Medical History: Diabetes-Type II, High Cholesterol, Hypertension Additional Past Medical Hx: HYPERLIPIDEMIA Surgical History: Cholecystectomy Surgical History Other: SPLENECTOMY Family History: Negative Social History: Negative History: Not Applicable RN Note Reviewed/Agreed w/PFSH: Yes Review of System Dictation Constitutional: Negative for fever,chills, and weight loss Eyes: Negative for injury, pain,redness, and discharge ENT: Negative for injury,pain or swelling Cardiovascular: Negative for chest pain, palpitations, and edema Respiratory: Negative for shortness of breath, cough, and wheezing, Abdomen/GI: Negative for abdominal pain, nausea, vomiting, diarrhea, and constipation Back: Negative for injury and pain : Negative for injury, bleeding and discharge MS/Extremity: Negative for injury and deformity Skin: Negative for rash, and discoloration Neuro: Negative for headache, , numbness, tingling, and seizure positive for weakness Psych: Negative for suicide ideation, homicidal ideation, and hallucinations Initial Vital Sign VS Vital Signs Date Time Temp Pulse Resp B/P (MAP) Pulse Ox O2 Delivery O2 Flow Rate FiO2 07/04/25 01:24 98.2 60 18 142/87 100 Room Air 07/04/25 01:32 0 21 Physical Exam Dictation Vital Signs reviewed General Appearance: Alert, oriented x 3, no acute distress, well developed, nourished. Head and Face: non-traumatic. Eyes: PERRL, pink conjunctivas, eyelid no trauma, anterior chamber with arcus senilis. Ears: Pinnas intact and no signs of trauma or erythema ear canals clear and no discharge TM no erythema Nose: No discharge, no bleeding. Oropharynx: Mouth normal, tongue pink. pharynx clear,no erythema, tonsils no exudates, no abscesses noted, mucous membrane moist Neck: Supple, non-tender, no thyromegaly, no masses, no JVD, no bruits Breast:Deferred Chest:No tenderness, no crepitus, no paradoxical movement, no retractions Lungs:Clear, well-ventilated, symmetric, no rales, no wheezing, no rhonchi, no stridor, good breath sounds bilaterally Heart: Regular rate, regular rhythm, no murmur, no gallops Vascular: no peripheral edema, Abdomen: Soft, positive bowel sounds, nondistended, no guarding, nontender, no rebound, no masses no hepatomegaly, no splenomegaly, no Telles's sign, no hernias. Rectal: Deferred Genital: Deferred Neurological: Normal speech, motor function intact, sensory function intact Musculoskeletal: Neck nontender, full range of motion, back nontender, full range of motion, Extremities: nontender, full range of motion Skin: Color pink, dry, no turgor, no rash, no lacerations, no abrasions, no contusions. Lymphatic: Deferred Results (Laboratory/Radiology) Laboratory/Radiology Laboratory Tests Test 07/04/25 02:02 White Blood Count 7.5 K/uL (4.8-10.8) Red Blood Count 3.30 MIL/uL (4.00-5.50) L Hemoglobin 10.9 g/dL (12.0-16.0) L Hematocrit 32.3 % (36-48) L Mean Corpuscular Volume 97.9 fL (79-99) Mean Corpuscular Hemoglobin 33.0 pg (27.0-33.0) Mean Corpuscular Hemoglobin Concent 33.7 g/dL (32.0-36.0) Red Cell Distribution Width 13.7 % (11.0-15.5) Platelet Count 228 K/uL (130-400) Mean Platelet Volume 9.5 fL (7.5-10.5) Immature Granulocyte % (Auto) 0.4 % (0-1) Neutrophils (%) (Auto) 34.5 % (40.0-77.0) L Lymphocytes (%) (Auto) 50.5 % (21.0-51.0) Monocytes (%) (Auto) 11.0 % (3.0-13.0) Eosinophils (%) (Auto) 3.2 % (0.0-8.0) Basophils (%) (Auto) 0.4 % (0.0-5.0) Neutrophils # (Auto) 2.6 K/uL (1.8-7.7) Lymphocytes # (Auto) 3.8 K/uL (1.0-4.8) Monocytes # (Auto) 0.8 K/uL (0.1-1.0) Eosinophils # (Auto) 0.24 K/uL (0.00-0.70) Basophils # (Auto) 0.03 K/uL (0.00-0.20) Absolute Immature Granulocyte (auto 0.03 K/uL (0-1) Nucleated Red Blood Cells 0.0 % (0.0-0.19) Sodium Level 136 mmol/L (136-145) Potassium Level 3.6 mmol/L (3.5-5.1) Chloride Level 102 mmol/L (101-111) Carbon Dioxide Level 28 mmol/L (21-32) Blood Urea Nitrogen 23 mg/dL (7-18) H Creatinine 1.5 mg/dL (0.5-1.0) H Glomerular Filtration Rate Calc 36 mL/min (>90) Random Glucose 165 mg/dL (70-105) H Total Calcium 8.5 mg/dL (8.5-10.1) Troponin I High Sensitivity 6 ng/L (4-50) Labs Reviewed?: Yes EKG: (+) rhythm (Sinus rhythm) EKG Comment: Date:07/04/2025 Time:0146 Ventricular rate:58 [place] interval:214 QRS duration:84 QT/QTc:475 EKG interpretation:468 Reviewed by ED Attending sinus rhythm, no STEMI ED Course ED Course Orders Procedure Category Date Status Time Bedside Glucose CPOE 07/04/25 Transmitted Fingerstick 01:25 Cbc With Differential LAB 07/04/25 Complete 01:41 Troponin I High LAB 07/04/25 Complete Sensitivity 01:41 12 Lead Ekg Tracing- EKG 07/04/25 Complete Technical 01:41 Chest 1vw RAD 07/04/25 Taken 01:41 Basic Metabolic Panel LAB 07/04/25 Complete 01:41 Vital Signs Date Time Temp Pulse Resp B/P (MAP) Pulse Ox O2 Delivery O2 Flow Rate FiO2 07/04/25 01:32 98.2 61 18 142/87 99 Room Air* 0 21 07/04/25 01:24 98.2 60 18 142/87 100 Room Air Medical Decision Making MDM The patient is a 75-year-old female with a history of diabetes, hypertension who presents to the emergency department with complaints of weakness and hypoglyce radha. Patient reports that she has been having problems with her glucose with a past two weeks but her PCP has not change any of her medications. Patient reports that today her lowest blood glucose was 58. Patient otherwise denies any recent illness, denies any nausea vomiting diarrhea fevers, denies any chest pain or shortness of breath. Patient does not recall what medication she takes for her diabetes and did not bring her medications today. CBC showed no leukocytosis, microcytic anemia, chemistry showed creatinine of 1.5, glucose of 165, negative troponin. On physical exam patient is in no acute distress, neurologically intact, stable vital signs. Patient will be discharged to follow up with PCP for diabetes management Differential diagnosis: Hypoglycemia, dehydration, electrolyte imbalance, ACS Need for hospitalization: Patient does not meet criteria for hospitalization. There are no social concerns with this patient. DX & DISP Disposition: Discharge Departure Impression: Primary Impression: Low blood sugar reading Condition: Stable Additional Instructions: Please follow up with your primary doctor about your blood sugars any diabetes medication. If anything worsens please return to ER. FOLLOW-UP WITH PRIMARY CARE PROVIDER IN 1 TO 2 DAYS. TAKE MEDICATIONS DIRECTED HERE IN THE EMERGENCY ROOM. OKAY TO CONTINUE HOME MEDICATIONS UNLESS OTHERWISE DISCUSSED DURING YOUR VISIT IN THE EMERGENCY ROOM TODAY. RETURN TO YOUR NEAREST EMERGENCY ROOM IF SYMPTOMS WORSEN OR IF THERE IS NO IMPROVEMENT. CALL 911 IF YOU NEED IMMEDIATE ASSISTANCE. TAKE TYLENOL [id number] NEEDED AND IF NO CONTRAINDICATIONS ARE PRESENT. INCREASE ORAL HYDRATION. A WOUND CULTURE OR URINE CULTURE WAS ORDERED HERE IN THE EMERGENCY ROOM DEPARTMENT PLEASE FOLLOW-UP WITH PRIMARY CARE PROVIDER AND ADVISE THEM TO GET REPEAT PORTS FROM OUR FACILITY. IF YOU HAD ANY TORRES WRAP/SPLINTS THAT WERE APPLIED HERE, PLEASE DO NOT REMOVE THEM UNTIL YOU SEE YOUR PRIMARY CARE OR SPECIALTY. Referrals: CAROLEE CORDOBA MD (PCP) Time of Disposition: 02:51 I have reviewed the case, and I agree with, Diagnosis and Plan RAJ YU [facility] Jul 04, 2025 02:31
[2025-07-04 03:12] VITALS: BP 138/81; PULSE 68; RESP 18; TEMP 98.3; O2SAT 99
--- NOTE | 2025-07-04 03:45 | HMCIMG ---
EXAM: CR Chest, 1 view CLINICAL HISTORY: Dizziness. COMPARISON: Chest radiograph dated 02/02/2025. FINDINGS: Stable mild subsegmental atelectasis in the left lung base. The lungs show no infiltrates or other acute findings. No pleural effusion or pneumothorax. The cardiomediastinal silhouette is within normal limits. No acute osseous abnormality. IMPRESSION: No acute cardiopulmonary process is evident. Stable mild subsegmental atelectasis in the left lung base. No gross interval changes. /[place]
== END 2025-07-04 03:18 | disposition home or self-care (01) ==
LOC: EDH 01:23
DX: E11.649 Type 2 diabetes mellitus with hypoglycemia without coma (principal); E78.00 Pure hypercholesterolemia, unspecified; I10 Essential (primary) hypertension; Z79.4 Long term (current) use of insulin; Z79.82 Long term (current) use of aspirin; Z79.85 Long-term (current) use of injectable non-insulin antidiabetic drugs; Z79.899 Other long term (current) drug therapy; Z88.8 Allergy status to other drugs, medicaments and biological substances; Z90.49 Acquired absence of other specified parts of digestive tract
CPT/HCPCS: 36415; 71045; 80048; 84484; 85025; 93005; 99285

== ENCOUNTER 2025-09-03 11:52 | Inpatient (IN) | payer MEDICAID, OTHER ==
[~2025-09-03] VITALS: Ht 157.5 cm; Wt 64.0 kg
--- NOTE | 2025-09-03 12:04 | ERN ---
ED Note History of Present Illness Stated Complaint: DIZZINESS AND WEAKNESS Chief Complaint: Hypotension Time Seen by MD: 11:57 Dictation: PATIENT IS A 75-YEAR-OLD FEMALE COMING IN WITH HER DAUGHTER WITH COMPLAINTS OF GENERALIZED BODY WEAKNESS LOW BLOOD PRESSURE IN THE 60S AND 70 SYSTOLIC AT HOME. SHE ALSO STATES SHE IS FEELING VERY LIGHTHEADED. STATES THE ONSET WAS SATURDAY. SHE DENIES FEVER CHILLS NAUSEA VOMITING NIH IS 0 AT THIS TIME. HE STATES HE HAS A AN APPOINTMENT WITH HER DOCTOR ON SATURDAY. CURRENT Allergies: Coded Allergies: No Allergy Information Available (Verified Allergy, Unknown, 06/20/16) lisinopril (Unverified Allergy, Unknown, 10/13/20) Home Meds Reported Medications Insulin Lispro (Humalog) 100 Unit/Ml Cartridge, 12 UNITS SQ BID, CARTRIDGE 02/03/25 Insulin Glargine,Hum.rec.anlog (Lantus Solostar) 100 Unit/Ml (3 Ml) Insuln.pen, 22 UNIT SQ HS for 30 Days, ML 0 Refills 02/03/25 Semaglutide (Ozempic) 1 Mg/0.75 Ml (4 Mg/3 Ml) Pen.injctr, 1 MG SQ QWEEK for 30 Days, #3 ML 0 Refills 02/03/25 Carvedilol (Carvedilol) 25 Mg Tablet, 1 TAB PO BID for 30 Days, #60 TAB 0 Refills 11/19/24 Omeprazole (Omeprazole) 20 Mg Capsule.dr, 1 CAP PO DAILY for 30 Days, #30 CAP 0 Refills 11/19/24 Amlodipine Besylate/Benazepril (Amlodipine-Benazepril 2.5-10) 2.5 Mg-10 Mg Capsule, 1 CAP PO DAILY for 30 Days, #30 CAP 0 Refills 11/19/24 Aspirin (ASPIRIN 81MG CHEW TAB) 81 Mg Tab.chew, 1 TAB PO DAILY for 30 Days, #30 TAB 0 Refills 11/19/24 Atorvastatin Calcium (Atorvastatin Calcium) 20 Mg Tablet, 10 MG PO HS for 30 Days, #30 TAB 0 Refills 11/19/24 Furosemide (Furosemide) 20 Mg Tablet, 20 MG PO QTUTHSA, TAB 11/19/24 Past Medical History Past Medical History: Diabetes-Type II, High Cholesterol, Hypertension, Stroke Additional Past Medical Hx: HYPERLIPIDEMIA Surgical History: Cholecystectomy, Other Surgical History Other: SPLENECTOMY Family History: Negative Social History: Negative History: Not Applicable RN Note Reviewed/Agreed w/PFSH: Yes Review of System Dictation CONSTITUTIONAL: NEGATIVE EXCEPT FOR HPI HYPOTENSION/GB W HEAD/FACE: NEGATIVE EXCEPT FOR HPI EENT: NEGATIVE EXCEPT FOR HPI RESPIRATORY: NEGATIVE EXCEPT FOR HPI GASTROINTESTINAL/ABDOMINAL: NEGATIVE EXCEPT FOR HPI GENITOURINARY: NEGATIVE EXCEPT FOR HPI MUSCULOSKELETAL: NEGATIVE EXCEPT FOR HPI INTEGUMENTARY: NEGATIVE EXCEPT FOR HPI NEUROLOGICAL/PSYCH: NEGATIVE EXCEPT FOR HPI HEMATOLOGIC/LYMPHATIC: NEGATIVE EXCEPT FOR HPI ALL SYSTEMS NEGATIVE, EXCEPT NOTED ABOVE. 13 POINT REVIEW OF SYSTEMS ASSESSED AND ALL NEGATIVE EXCEPT FOR ABOVE. Initial Vital Sign VS Vital Signs Date Time Temp Pulse Resp B/P (MAP) Pulse Ox O2 Delivery O2 Flow Rate FiO2 09/03/25 11:55 98.4 54 20 81/37 96 Room Air 09/03/25 12:07 0 21 Physical Exam Dictation VITAL SIGNS REVIEWED GENERAL APPEARANCE: ALERT, ORIENTED X 3, WEAK AND DEBILITATED. HEAD AND FACE: NON-TRAUMATIC. EYES: PERRL, PINK CONJUNCTIVAS, EYELID NO TRAUMA, ANTERIOR CHAMBER WITH ARCUS SENILIS. EARS: PINNAS INTACT AND NO SIGNS OF TRAUMA OR ERYTHEMA EAR CANALS CLEAR AND NO DISCHARGE TM NO ERYTHEMA NOSE: NO DISCHARGE, NO BLEEDING. OROPHARYNX: MOUTH NORMAL, TONGUE PINK, PHARYNX CLEAR,NO ERYTHEMA, TONSILS NO EXUDATES, NO ABSCESSES NOTED, MUCOUS MEMBRANE MOIST NECK: SUPPLE, NON-TENDER, NO THYROMEGALY, NO MASSES, NO JVD, NO BRUITS BREAST:DEFERRED CHEST:NO TENDERNESS, NO CREPITUS, NO PARADOXICAL MOVEMENT, NO RETRACTIONS LUNGS:CLEAR, WELL-VENTILATED, SYMMETRIC, NO RALES, NO WHEEZING, NO RHONCHI, NO STRIDOR, GOOD BREATH SOUNDS BILATERALLY HEART: REGULAR RATE, REGULAR RHYTHM, NO MURMUR, NO GALLOPS VASCULAR: NO PERIPHERAL EDEMA, ABDOMEN: SOFT, POSITIVE BOWEL SOUNDS, NONDISTENDED, NO GUARDING, NONTENDER, NO REBOUND, NO MASSES NO HEPATOMEGALY, NO SPLENOMEGALY, NO MCGUIRE'S SIGN, NO HERNIAS. RECTAL: DEFERRED GENITAL: DEFERRED NEUROLOGICAL: NORMAL SPEECH, MOTOR FUNCTION INTACT, SENSORY FUNCTION INTACT MUSCULOSKELETAL: NECK NONTENDER, FULL RANGE OF MOTION, BACK NONTENDER, FULL RANGE OF MOTION, EXTREMITIES: NONTENDER, FULL RANGE OF MOTION SKIN: COLOR PINK, DRY, NO TURGOR, NO RASH, NO LACERATIONS, NO ABRASIONS, NO CONTUSIONS. LYMPHATIC: DEFERRED Results (Laboratory/Radiology) Laboratory/Radiology Laboratory Tests Test 09/03/25 12:12 09/03/25 13:02 09/03/25 14:20 09/03/25 14:57 White Blood Count 7.6 K/uL (4.8-10.8) Red Blood Count 4.09 MIL/uL (4.00-5.50) Hemoglobin 13.1 g/dL (12.0-16.0) Hematocrit 38.5 % (36-48) Mean Corpuscular Volume 94.1 fL (79-99) Mean Corpuscular Hemoglobin 32.0 pg (27.0-33.0) Mean Corpuscular Hemoglobin Concent 34.0 g/dL (32.0-36.0) Red Cell Distribution Width 13.1 % (11.0-15.5) Platelet Count 226 K/uL (130-400) Mean Platelet Volume 9.9 fL (7.5-10.5) Immature Granulocyte % (Auto) 0.4 % (0-1) Neutrophils (%) (Auto) 63.8 % (40.0-77.0) Lymphocytes (%) (Auto) 22.6 % (21.0-51.0) Monocytes (%) (Auto) 7.9 % (3.0-13.0) Eosinophils (%) (Auto) 5.0 % (0.0-8.0) Basophils (%) (Auto) 0.3 % (0.0-5.0) Neutrophils # (Auto) 4.8 K/uL (1.8-7.7) Lymphocytes # (Auto) 1.7 K/uL (1.0-4.8) Monocytes # (Auto) 0.6 K/uL (0.1-1.0) Eosinophils # (Auto) 0.38 K/uL (0.00-0.70) Basophils # (Auto) 0.02 K/uL (0.00-0.20) Absolute Immature Granulocyte (auto 0.03 K/uL (0-1) Nucleated Red Blood Cells 0.0 % (0.0-0.19) Sodium Level 140 mmol/L (136-145) Potassium Level 3.8 mmol/L (3.5-5.1) Chloride Level 98 mmol/L (101-111) L Carbon Dioxide Level 30 mmol/L (21-32) Blood Urea Nitrogen 38 mg/dL (7-18) H Creatinine 2.5 mg/dL (0.5-1.0) H Glomerular Filtration Rate Calc 20 mL/min (>90) Random Glucose 116 mg/dL (70-105) H Lactic Acid Level 2.3 mmol/L (0.8-2.5) Total Calcium 9.9 mg/dL (8.5-10.1) Troponin I High Sensitivity 6 ng/L (4-50) 5 ng/L (4-50) Urine Color LIGHT-YELLOW (YELLOW) Urine Appearance CLEAR (CLEAR) Urine pH 5.5 (5.0-8.0) Urine Specific [place] 1.004 (1.001-1.031) Urine Protein NEGATIVE mg/dL (NEGATIVE) Urine Glucose (UA) NEGATIVE mg/dL (NEGATIVE) Urine Ketones NEGATIVE mg/dL (NEGATIVE) Urine Occult Blood NEGATIVE (NEGATIVE) Urine Nitrate NEGATIVE (NEGATIVE) Urine Bilirubin NEGATIVE mg/dL (NEGATIVE) Urine Urobilinogen 0.2 mg/dL (0.2-1.0) Urine Leukocyte Esterase NEGATIVE Yue/uL Whole Blood Glucose 55 MG/DL (70-110) L CHEST 1VW REASON: CHEST PAIN/SOB COMPARISON: Prior study from 07/04/2025 is available. FINDINGS: Single view of the chest was obtained. Lungs are clear. Heart size is normal. There is no pulmonary vascular congestion. Mediastinum and bony thorax appear unremarkable. IMPRESSION: 1. Unchanged from prior study with no acute cardiopulmonary process.. Labs Reviewed?: Yes EKG Comment: EKG SINUS BRADYCARDIA/HEART RATE 51/AXIS NORMAL/NO ECTOPY ED Course ED Course Orders Procedure Category Date Status Time Blood Cult ANIBAL 09/03/25 In Process 12:00 Lactic Acid LAB 09/03/25 Complete 12:00 Cbc With Differential LAB 09/03/25 Complete 12:00 Troponin I High LAB 09/03/25 Complete Sensitivity 12:00 Urinalysis Profile LAB 09/03/25 Complete 12:00 12 Lead Ekg Tracing- EKG 09/03/25 Complete Technical 12:00 0.9%Nacl 1000ml (Ns PHA 09/03/25 Complete 1000ml) 12:00 Chest 1vw RAD 09/03/25 Resulted 12:00 Basic Metabolic Panel LAB 09/03/25 Complete 12:00 0.9%Nacl 1000ml (Ns PHA 09/03/25 In Process 1000ml) 13:00 Troponin I High LAB 09/03/25 Complete Sensitivity 12:50 Ceftriaxone 2gm Vial PHA 09/03/25 Complete (Rocephin 2gm Inj) 13:00 Dextrose 50%-Water PHA 09/03/25 In Process (D50w) 15:30 Lactic Acid (Removed) LAB 09/03/25 Logged 15:24 Current Medications Medications (Trade) Dose Ordered Sig/Juan David Route PRN Reason Start Time Stop Time Status Last Admin Dose Admin Ceftriaxone Sodium (Rocephin 2gm Inj) 2 gm ONCE ONCE IVPB 09/03/25 13:00 09/03/25 13:01 DC 09/03/25 12:55 Dextrose (D50w) 50 ml ONCE ONCE IV 09/03/25 15:30 09/03/25 15:31 09/03/25 15:08 Sodium Chloride 1,000 ml @ 0 mls/hr ONCE ONCE IV 09/03/25 12:00 09/03/25 12:02 DC 09/03/25 12:30 Sodium Chloride 1,974 ml @ 658 mls/hr ONCE ONCE IV 09/03/25 13:00 09/03/25 15:59 09/03/25 12:53 Vital Signs Date Time Temp Pulse Resp B/P (MAP) Pulse Ox O2 Delivery O2 Flow Rate FiO2 09/03/25 12:07 97.9 58 14 88/45 97 Room Air* 0 21 09/03/25 11:55 98.4 54 20 81/37 96 Room Air 1515/PATIENT HAS A GLUCOSE OF 55. SHE WAS GIVEN D50. I INTERVIEWED HER AT LENGTH AND SHE SAID SHE TAKES AN INSULIN THAT SHE INJECTS AND HAS BEEN HAVING TROUBLES WITH HYPOGLYCEMIA FOR MORE THAN A WEEK. SHE SAID SHE IS EATING THREE MEALS A DAY WITH A BEDTIME SNACK I TOLD HER IT MAY NOT BE ENOUGH. CURRENTLY HER BLOOD PRESSURE 133 SYSTOLIC HEART RATE IS 63 64 AND PATIENT STATES SHE FEELS BETTER. WE WILL FOLLOW UP WITH THE ADMIT PATIENT TO THE HOSPITAL. 1532/SPOKE WITH DR. CULP AND HE AGREED TO ADMIT HEART Score Response (Comments) Value History: Low suspicion (0) 0 EKG: Normal 0 Age: > 65yrs (+2) 2 Risk Factors: 1-2 risk factors (+1) 1 Initial Troponin: Normal limit (0) 0 Total 3 Medical Decision Making MDM MDM: DIFFERENTIAL DIAGNOSIS: ACS/AMI/SEPSIS/ELECTROLYTE IMBALANCE/DEHYDRATION/UNCONTROLLED DIABETES/ARRHYTHMIA RATIONALE: TESTS CONSIDERED AND ORDERED SECONDARY TO SHARED DECISION MAKING INCLUDE: LABS, ECG AND RADIOLOGY PREVIOUS OUTSIDE RECORDS REVIEWED: OLD ER VISITS. RISK OF COMPLICATION AND/OR MORBIDITY OR MORTALITY OF PATIENT MANAGEMENT: NONE MEDICATIONS-PER MEDICATION RECONCILIATION NEED FOR HOSPITALIZATION: PATIENT DOES MEET CRITERIA FOR HOSPITALIZATION. PATIENT WILL NEED TO BE ADMITTED FOR MONITORING OF HER GLUCOSE ADJUSTMENT OF HER INSULIN AND SEPSIS AND REHYDRATION NEED FOR EMERGENCY MAJOR/MINOR SURGERY: NO THERE ARE NO SOCIAL CONCERNS WITH THIS PATIENT. PRESCRIPTION DRUG MANAGEMENT PRESCRIPTIONS WILL INCLUDE SYMPTOMATIC CARE PATIENT'S PRIOR EXTERNAL MEDICAL RECORDS FROM OTHER ER VISITS WERE REVIEWED BY ME INDICATED. PRIOR TESTING AND RESULTS FROM PREVIOUS VISITS WERE REVIEWED. PRIOR TESTS WERE TAKEN INTO ACCOUNT WITH MEDICAL DECISION MAKING AND RESOURCE UTILIZATION, INDEPENDENT HISTORIAN/HISTORIANS WERE USED TO OBTAIN COMPLETE MEDICAL HISTORY. I INDEPENDENTLY INTERPRETED THE TEST THAT WERE PERFORMED, RESULTS WERE REVIEWED BY ME AND CONSIDERED FINDINGS ON RADIOLOGY IF ORDERED. MEDICAL MANAGEMENT AND EXAMINATION INTERPRETATION DISCUSSIONS WERE HAD BY ME WITH OTHER QUALIFIED HEALTHCARE PROFESSIONALS INDICATED FOR THE PATIENT'S CARE. DX & DISP Disposition: Inpatient Decision to Admit Time: 15:28 Departure Impression: Primary Impression: Dehydration Additional Impressions: [id number] kidney injury, Low blood sugar reading, Near syncope, Lactic acidosis Condition: Stable Referrals: CAROLEE CORDOBA MD (PCP) Time of Disposition: 15:28 I have reviewed the case, and I agree with, Diagnosis and Plan KARI JOSE Sep 03, 2025 12:04
[2025-09-03 12:22] LABS: IMMATURE GRANULOCYTE ABSOLUTE 0.03 K/uL (0-1); NUCLEATED RED BLOOD CELLS 0.0 % (0.0-0.19); PLATELET COUNT (AUTO) 226 K/uL (130-400); RED BLOOD CELL COUNT(AUTO) 4.09 MIL/uL (4.00-5.50); RED CELL DISTRIBUTION WIDTH 13.1 % (11.0-15.5); WHITE BLOOD COUNT (AUTO) 7.6 K/uL (4.8-10.8)
[2025-09-03] MEDS: 0.9%NACL 1000ML 1,000 ML IV ONE (12:30)
[2025-09-03 12:34] LABS: CREATININE 2.5 mg/dL (0.5-1.0); GLOMERULAR FILTR. RATE CALC 20.0 mL/min (>90); GLUCOSE,RANDOM 116.0 mg/dL (70-105); SODIUM SERUM 140.0 mmol/L (136-145); UREA NITROGEN, BLOOD 38.0 mg/dL (7-18)
[2025-09-03] MEDS: [UNRECOGNIZED DRUG - OTHER] IV ONE (12:53)
--- NOTE | 2025-09-03 13:16 | HMCIMG ---
CHEST 1VW REASON: CHEST PAIN/SOB COMPARISON: Prior study from 07/04/2025 is available. FINDINGS: Single view of the chest was obtained. Lungs are clear. Heart size is normal. There is no pulmonary vascular congestion. Mediastinum and bony thorax appear unremarkable. IMPRESSION: 1. Unchanged from prior study with no acute cardiopulmonary process..
--- NOTE | 2025-09-03 14:45 | EKG ---
[facility] Test Date: 2025-09-03 Test Time: 12:12:17 Pat Name: ZARI POTTER Department: [facility] Room: 305 Gender: F Cardiopulmonary Supervisor: [id number] : 1950 Requested By: KARI JOSE Order Number: [id number] Reading MD: Ignacio Torres Measurements Intervals [place] Rate: 51 P: 33 SC: 179 QRS: -13 QRSD: 85 T: 35 QT: 489 QTc: 453 Interpretive Statements Sinus rhythm Compared to ECG 07/04/2025 01:46:57 Myocardial infarct finding no longer present Electronically Signed On 09-05-2025 16:05:30 CDT by Ignacio Torres Please click the below link to view image of tracing.
[2025-09-03 14:46] LABS: APPEARANCE,URINE CLEAR (CLEAR); GLUCOSE, URINE (UA) NEGATIVE (NEGATIVE); LEUKOCYTE ESTERASE ,URINE NEGATIVE Leu/uL (NEGATIVE); NITRATE,URINE NEGATIVE (NEGATIVE); OCCULT BLOOD,URINE NEGATIVE (NEGATIVE)
[2025-09-03 14:51] LABS: ADD UA MICROSCOPIC NO
[2025-09-03] MEDS: DEXTROSE 50%-WATER 50 ML DISP.SYRIN IV ONE (15:08)
[2025-09-03] MEDS ORDERED: MAGNESIUM 2GM PREMIX 50ML 50 ML IV PRN (16:00)
[2025-09-03] MEDS ORDERED: PoTASSium chl 10% ELIXIR 20MEQ 20 MEQ/15 ML UDCUP PO PRN (16:00)
[2025-09-03] MEDS ORDERED: PoTASSium chloRIDE 20MEQ ER 20 MEQ ERTAB PO PRN (16:00)
[2025-09-03] MEDS ORDERED: DEXTROSE 5 % AND 0.9 % NACL 1,000 ML IV SCH (17:00)
--- NOTE | 2025-09-03 17:27 | NUR ---
REPORT GIVEN TO GREY DAMON AT 1720. PT STABLE NO DISTRESS VITALS WNL NO C/O PAIN. PT WITH DAUGHTER AND PERSONAL BELONGINGS.
--- NOTE | 2025-09-03 17:27 | NUR ---
PENDING DAUGHTER TO BRING HOME MEDICAITONS.
[2025-09-03 17:40] VITALS: BP 143/68; PULSE 57; RESP 19; TEMP 97.7
[2025-09-03 20:00] VITALS: BP 136/67; PULSE 56; RESP 20; TEMP 97.7; O2SAT 96
[2025-09-03] MEDS: SODIUM CL 4MEQ/ML 30ML 154 MEQ in DEXTROSE 10%-WATER 961.5 ML IV SCH (20:35)
[2025-09-04] VITALS (8 sets, daily range): BP systolic 109–152; BP diastolic 52–70; PULSE 59–66; RESP 18; TEMP 97.7–98.2; O2SAT 99
--- NOTE | 2025-09-04 00:28 | HP ---
HISTORY AND PHYSICAL DATE OF SERVICE: 09/03/2025 PRESENTING COMPLAINT: Weakness and low blood pressure. HISTORY OF PRESENT ILLNESS: This is a 75-year-old female with history of hypertension, diabetes mellitus, liver cirrhosis, hypothyroidism, presented to the hospital with the above complaint. The patient claims she has been feeling weak in the last 2 days. Noticed low blood pressure and decided to come to the Emergency Room. In the ER, the patient was found with a BP of 81/37 and was given IV fluid for which she responded with improvement in BP to 127/59. The patient was also found hypoglycemic. Blood glucose was low at 55. Sometimes she have been experiencing hypoglycemia lately. She takes Lispro and Lantus at home. BUN also found to be elevated. No nausea or vomiting. Denies diarrhea. No abdominal pain. Urinalysis was negative. PAST MEDICAL HISTORY: 1. Hypertension. 2. Diabetes mellitus. 3. Liver cirrhosis. 4. Hypothyroidism. 5. History of hepatitis C. 6. Chronic kidney disease. PAST SURGICAL HISTORY: 1. Splenectomy. 2. section. 3. Cholecystectomy. ALLERGIES: LISINOPRIL. HOME MEDICATIONS: Reviewed. SOCIAL HISTORY: No alcohol, tobacco or illicit drug use. FAMILY HISTORY: Positive for diabetes mellitus. REVIEW OF SYSTEMS: Greater than 10-system were reviewed. Negative except as documented above. PHYSICAL EXAMINATION: GENERAL: Elderly female, awake, not in distress. VITAL SIGNS: Temperature 98.4, pulse 54, respirations 20, BP 81/37. EYES: No icterus. Pupils are equal and reactive. HENT: No oral thrush seen. Moist oral mucosa. NECK: Supple. No JVD or thyromegaly. LUNGS: Good air entry. No rales. No rhonchi. CARDIOVASCULAR SYSTEM: S1 and S2 regular. No murmur heard. ABDOMEN: Full, soft, nontender. Bowel sounds present. CENTRAL NERVOUS SYSTEM: Awake, alert, and oriented x 3. No focal deficits. SKIN: No rashes. No itchiness. LYMPHATIC: No peripheral lymphadenopathy. BACK: No deformity, no pressure ulcer. MUSCULOSKELETAL: No joint swelling, erythema or tenderness. LABORATORY DATA: Glucose 55, sodium 140, potassium 3.8, BUN 38, creatinine 2.5. WBC 7.6, hemoglobin 13.1, platelets 236. Urinalysis is negative. RADIOLOGICAL DATA: Chest x-ray is unremarkable. ASSESSMENT: A 75-year-old female presenting with weakness and low blood pressure. Current problems include: 1. Dehydration. 2. Hypoglycemia. 3. Acute renal failure. 4. Weakness. 5. Liver cirrhosis. PLAN: 1. Admit the patient to medical floor. 2. The patient will be placed on IV D10 normal saline and ADA diet. 3. Insulin sliding scale. 4. Monitor blood glucose closely. 5. Home medication will be reconciled. 6. The patient will be followed up closely. TID: [id number] RECEIPT: [id number] MTDD
[2025-09-04 05:16] LABS: IMMATURE GRANULOCYTE ABSOLUTE 0.03 K/uL (0-1); NUCLEATED RED BLOOD CELLS 0.0 % (0.0-0.19); PLATELET COUNT (AUTO) 207 K/uL (130-400); RED BLOOD CELL COUNT(AUTO) 3.50 MIL/uL (4.00-5.50); RED CELL DISTRIBUTION WIDTH 13.2 % (11.0-15.5); WHITE BLOOD COUNT (AUTO) 8.4 K/uL (4.8-10.8)
[2025-09-04 05:33] LABS: ASPARTATE AMINOTRANSFERASE 12.0 U/L (10-37); CREATININE 1.7 mg/dL (0.5-1.0); GLOMERULAR FILTR. RATE CALC 31.0 mL/min (>90); GLUCOSE,RANDOM 174.0 mg/dL (70-105); SODIUM SERUM 141.0 mmol/L (136-145); TOTAL PROTEIN, SERUM 6.2 g/dL (6.0-8.3); UREA NITROGEN, BLOOD 27.0 mg/dL (7-18)
[2025-09-04] MEDS: ENOXAPARIN SODIUM 30 MG/0.3 ML SQ SCH (09:00)
--- NOTE | 2025-09-04 16:16 | NUR ---
DC PLAN PATIENT LIVES WITH SPOUSE. INDEPENDENT ABLE TO PERFORM ADL'S. PATIENT HAS NO SERVICES. USES A WALKER AND A CANE. PLAN TO RETURN HOME Addendum: 09/04/25 at 1618 by MONA HUERTA RN CM Amended: Links added.
--- NOTE | 2025-09-04 19:14 | PN ---
INFECTIOUS DISEASE PROGRESS NOTE Date of Service: Sep 04, 2025 SUBJECTIVE: This is a 75-year-old female patient admitted for hypotension and debility. Today patient is awake, alert and oriented x3. Patient is sitting up on the bedside chair. Blood pressure reading at the time was 109/54. No dyspnea observe and the preliminary blood cultures results is growing Gram-positive cocci in clusters in 1 of 2 sets which is possible a contaminant. We will follow up on the final culture results to decide if patient needs antibiotics. No other issues reported by nursing. PHYSICAL EXAM EYES: Anicteric. Pupils equal and reactive. HENT: No oral thrush seen, moist Oral mucosa NECK: Supple, no JVD or thyromegaly. LUNGS: Good air entry. No rales, no rhonchi. CARDIOVASCULAR: S1, S2 regular. No murmur heard. ABDOMEN: Soft, non tender, bowel sounds present, no organomegaly. CENTRAL NERVOUS SYSTEM: Awake, alert, oriented x 3. SKIN: No rashes, no swelling. LYMPHATICS: No peripheral lymphadenopathy MUSCULOSKELETAL: No joint swelling, erythema or tenderness. EXTREMITIES: No cyanosis or clubbing. Weakness. BACK: No deformity, no pressure ulcer. GENITOURINARY: No dysuria or hematuria. Vital Sign (Last 12 Hours) 09/04/25 09/04/25 09/04/25 09/04/25 07:50 07:59 11:51 16:00 Temp 98.1 98.1 98.1 Pulse 63 66 65 Resp 18 18 18 B/P (MAP) 109/54 152/69 139/70 Pulse Ox 97 98 95 O2 Delivery Room Air* Room Air Room Air Room Air O2 Flow Rate 0 FiO2 21 Intake & Output (last 24hrs) 09/03/25 09/03/25 09/04/25 15:00 23:00 07:00 Intake Total 120 ml 700.0 ml Balance 120 ml 700.0 ml LABS: Laboratory: Test 09/04/25 11:07 09/04/25 04:50 09/03/25 19:39 09/03/25 14:20 Range/Units Whole Blood Glucose 259 H 70-110 MG/DL White Blood Count 8.4 4.8-10.8 K/uL Red Blood Count 3.50 L 4.00-5.50 MIL/uL Hemoglobin 11.4 L 12.0-16.0 g/dL Hematocrit 32.6 L 36-48 % Mean Corpuscular Volume 93.1 79-99 fL Mean Corpuscular Hemoglobin 32.6 27.0-33.0 pg Mean Corpuscular Hemoglobin Concent 35.0 32.0-36.0 g/dL Red Cell Distribution Width 13.2 11.0-15.5 % Platelet Count 207 130-400 K/uL Mean Platelet Volume 10.4 7.5-10.5 fL Immature Granulocyte % (Auto) 0.4 0-1 % Neutrophils (%) (Auto) 47.2 40.0-77.0 % Lymphocytes (%) (Auto) 35.4 21.0-51.0 % Monocytes (%) (Auto) 10.7 3.0-13.0 % Eosinophils (%) (Auto) 6.1 0.0-8.0 % Basophils (%) (Auto) 0.2 0.0-5.0 % Neutrophils # (Auto) 4.0 1.8-7.7 K/uL Lymphocytes # (Auto) 3.0 1.0-4.8 K/uL Monocytes # (Auto) 0.9 0.1-1.0 K/uL Eosinophils # (Auto) 0.51 0.00-0.70 K/uL Basophils # (Auto) 0.02 0.00-0.20 K/uL Absolute Immature Granulocyte (auto 0.03 0-1 K/uL Nucleated Red Blood Cells 0.0 0.0-0.19 % Sodium Level 141 136-145 mmol/L Potassium Level 3.5 3.5-5.1 mmol/L Chloride Level 103 101-111 mmol/L Carbon Dioxide Level 28 21-32 mmol/L Blood Urea Nitrogen 27 H 7-18 mg/dL Creatinine 1.7 H 0.5-1.0 mg/dL Glomerular Filtration Rate Calc 31 >90 mL/min Random Glucose 174 H 70-105 mg/dL Total Calcium 8.4 L 8.5-10.1 mg/dL Magnesium Level 1.90 1.80-2.40 mg/dL Total Bilirubin 0.2 0.2-1.0 mg/dL Aspartate Amino Transf (AST/SGOT) 12 10-37 U/L Alanine Aminotransferase (ALT/SGPT) 10 L 12-78 U/L Alkaline Phosphatase 51 50-136 U/L Total Protein 6.2 6.0-8.3 g/dL Albumin 2.8 L 3.5-5.0 g/dL Lactic Acid Level 1.7 0.8-2.5 mmol/L Urine Color LIGHT-YELLOW YELLOW Urine Appearance CLEAR CLEAR Urine pH 5.5 5.0-8.0 Urine Specific [place] 1.004 1.001-1.031 Urine Protein NEGATIVE NEGATIVE mg/dL Urine Glucose (UA) NEGATIVE NEGATIVE mg/dL Urine Ketones NEGATIVE NEGATIVE mg/dL Urine Occult Blood NEGATIVE NEGATIVE Urine Nitrate NEGATIVE NEGATIVE Urine Bilirubin NEGATIVE NEGATIVE mg/dL Urine Urobilinogen 0.2 0.2-1.0 mg/dL Urine Leukocyte Esterase NEGATIVE NEGATIVE Yue/uL Test 09/03/25 13:02 09/03/25 12:12 Range/Units Troponin I High Sensitivity 5 4-50 ng/L Hemoglobin A1c 10.0 H 4.0-6.0 % Estimated Average Glucose (eAG) 240 H 70-126 mg/dL DIAGNOSTICS / RADIOLOGY: PATIENT: ZARI POTTER ACCT: [id number] LOC: [facility] U: [id number] AGE/SX: 75/F ROOM: 305 RE09/03/[address]: BHARAT CARTER MD : 1950 BED: 1 DIS: STATUS: ADM IN TLOC: SPEC: [id number] BRONWYN: 09/03/25 STATUS: COMP REQ: [id number] RECD: 09/03/[address]: KARI JOSE SOURCE: BLOOD ENTR: 09/03/25-[address]: CAROLEE CORDOBA MD SPDESC: ARVIN BHATTI MD ORDERED: BLOOD CULTURE COMMENTS: What is the Source? BLOOD --------- --- Procedure Result Adriana Date-Time BLOOD CULT Final 09/04/25-1123 GRAM STAIN: GRAM POSITIVE COCCI IN CLUSTERS 1 OF 2 SET PEDI BOTTLE CALLED TO NURSE SHIRIN 09/04/25 AT 1121 BY [facility]. CULTURE REPORT: IDENTIFICATION AND SUSCEPTIBILITIES TO FOLLOW Sent to Reference Lab. SEE [id number] FOR CULTURE RESULTS ASSESSMENT: Gram-positive bacteremia possible a contaminant. Symptomatic hypotension. Acute on chronic renal failure. Uncontrolled diabetes, hemoglobin A1c of 10.0. Debility. History of liver cirrhosis. PLAN: Hold blood pressure medications. We will follow up on the final blood culture results and decide if antibiotics is needed. Discontinue D5 NS. Glucometer checks a.c./hs and cover with insulin per sliding scale protocol. Nursing to update Home medication list for review. This case was reviewed and discussed with my supervising physician Dr. Carter and the above assessment and plan was formulated and agreed upon. ATTESTATION BY PHYSICIAN I have seen and examined the patient. I reviewed the documentation, medical decision making, and treatment plan as noted by the mid-level provider above. I agree with the findings and plan of care. BHARAT CARTER MD, MIRTA L [facility] Sep 04, 2025 19:14
[2025-09-05 03:43] VITALS: BP 126/61; PULSE 58; RESP 18; TEMP 97.9
[2025-09-05 06:39] LABS: NUCLEATED RED BLOOD CELLS 0.0 % (0.0-0.19); PLATELET COUNT (AUTO) 215.0 K/uL (130-400); RED BLOOD CELL COUNT(AUTO) 3.56 MIL/uL (4.00-5.50); RED CELL DISTRIBUTION WIDTH 13.2 % (11.0-15.5); WHITE BLOOD COUNT (AUTO) 8.3 K/uL (4.8-10.8)
[2025-09-05 06:49] LABS: CREATININE 1.4 mg/dL (0.5-1.0); GLOMERULAR FILTR. RATE CALC 39.0 mL/min (>90); GLUCOSE,RANDOM 207.0 mg/dL (70-105); SODIUM SERUM 139.0 mmol/L (136-145); UREA NITROGEN, BLOOD 20.0 mg/dL (7-18)
[2025-09-05 08:00] VITALS: BP 139/65; PULSE 65; RESP 19; TEMP 98.3
[2025-09-05 12:00] VITALS: BP 127/66; PULSE 72; RESP 20; TEMP 97.8
--- NOTE | 2025-09-05 15:07 | PN ---
INFECTIOUS DISEASE PROGRESS NOTE Date of Service: Sep 05, 2025 SUBJECTIVE: This is a 75-year-old female patient who was seen and examined at bedside in room 305. Patient is awake, alert and oriented x3. Patient's blood pressure is stable with the last reading of 139/65. Patient denying dizziness. Renal function improving, BUN is 20 a creatinine of 1.4. Blood cultures still on preliminary status with Gram-positive cocci in cluster 1 of 2 sets. Pending the final culture results to decide if patient needs antibiotics. No other issues reported by nursing. PHYSICAL EXAM EYES: Anicteric. Pupils equal and reactive. HENT: No oral thrush seen, moist Oral mucosa NECK: Supple, no JVD or thyromegaly. LUNGS: Good air entry. No rales, no rhonchi. CARDIOVASCULAR: S1, S2 regular. No murmur heard. ABDOMEN: Soft, non tender, bowel sounds present, no organomegaly. CENTRAL NERVOUS SYSTEM: Awake, alert, oriented x 3. SKIN: No rashes, no swelling. LYMPHATICS: No peripheral lymphadenopathy MUSCULOSKELETAL: No joint swelling, erythema or tenderness. EXTREMITIES: No cyanosis or clubbing. Weakness. BACK: No deformity, no pressure ulcer. GENITOURINARY: No dysuria or hematuria. Vital Sign (Last 12 Hours) 09/05/25 09/05/25 09/05/25 09/05/25 03:43 08:00 09:20 12:00 Temp 97.9 98.2 97.9 Pulse 58 65 72 Resp 18 19 20 B/P (MAP) 126/61 139/65 127/66 Pulse Ox 99 98 99 O2 Delivery Room Air Room Air Room Air* Room Air O2 Flow Rate 0 FiO2 21 21 21 LABS: Laboratory: Test 09/05/25 12:09 09/05/25 06:27 09/04/25 04:50 09/03/25 19:39 Range/Units Whole Blood Glucose 284 H 70-110 MG/DL Bedside Glucose Comment Notified Nurse White Blood Count 8.3 4.8-10.8 K/uL Red Blood Count 3.56 L 4.00-5.50 MIL/uL Hemoglobin 11.5 L 12.0-16.0 g/dL Hematocrit 32.8 L 36-48 % Mean Corpuscular Volume 92.1 79-99 fL Mean Corpuscular Hemoglobin 32.3 27.0-33.0 pg Mean Corpuscular Hemoglobin Concent 35.1 32.0-36.0 g/dL Red Cell Distribution Width 13.2 11.0-15.5 % Platelet Count 215 130-400 K/uL Mean Platelet Volume 10.2 7.5-10.5 fL Nucleated Red Blood Cells 0.0 0.0-0.19 % Sodium Level 139 136-145 mmol/L Potassium Level 4.2 3.5-5.1 mmol/L Chloride Level 103 101-111 mmol/L Carbon Dioxide Level 29 21-32 mmol/L Blood Urea Nitrogen 20 H 7-18 mg/dL Creatinine 1.4 H 0.5-1.0 mg/dL Glomerular Filtration Rate Calc 39 >90 mL/min Random Glucose 207 H 70-105 mg/dL Total Calcium 9.0 8.5-10.1 mg/dL Magnesium Level 2.00 1.80-2.40 mg/dL Immature Granulocyte % (Auto) 0.4 0-1 % Neutrophils (%) (Auto) 47.2 40.0-77.0 % Lymphocytes (%) (Auto) 35.4 21.0-51.0 % Monocytes (%) (Auto) 10.7 3.0-13.0 % Eosinophils (%) (Auto) 6.1 0.0-8.0 % Basophils (%) (Auto) 0.2 0.0-5.0 % Neutrophils # (Auto) 4.0 1.8-7.7 K/uL Lymphocytes # (Auto) 3.0 1.0-4.8 K/uL Monocytes # (Auto) 0.9 0.1-1.0 K/uL Eosinophils # (Auto) 0.51 0.00-0.70 K/uL Basophils # (Auto) 0.02 0.00-0.20 K/uL Absolute Immature Granulocyte (auto 0.03 0-1 K/uL Total Bilirubin 0.2 0.2-1.0 mg/dL Aspartate Amino Transf (AST/SGOT) 12 10-37 U/L Alanine Aminotransferase (ALT/SGPT) 10 L 12-78 U/L Alkaline Phosphatase 51 50-136 U/L Total Protein 6.2 6.0-8.3 g/dL Albumin 2.8 L 3.5-5.0 g/dL Lactic Acid Level 1.7 0.8-2.5 mmol/L DIAGNOSTICS / RADIOLOGY: PATIENT: ZARI POTTER ACCT: [id number] LOC: [facility] U: [id number] AGE/SX: 75/F ROOM: 305 RE09/03/[address]: BHARAT CARTER MD : 1950 BED: 1 DIS: STATUS: ADM IN TLOC: SPEC: [id number] BRONWYN: 09/03/25 STATUS: COMP REQ: [id number] RECD: 09/03/[address]: KARI JOSE SOURCE: BLOOD ENTR: 09/03/25-[address] [facility] [address]: CAROLEE CORDOBA MD SPDESC: ARVIN BHATTI MD ORDERED: BLOOD CULTURE COMMENTS: What is the Source? BLOOD Procedure Result Adriana Date-Time BLOOD CULT Final 09/04/25-1123 GRAM STAIN: GRAM POSITIVE COCCI IN CLUSTERS 1 OF 2 SET PEDI BOTTLE CALLED TO NURSE SHIRIN 09/04/25 AT 1121 BY [facility]. CULTURE REPORT: IDENTIFICATION AND SUSCEPTIBILITIES TO FOLLOW Sent to Reference Lab. SEE [id number] FOR CULTURE RESULTS ASSESSMENT: Gram-positive bacteremia possible a contaminant. Symptomatic hypotension. Acute on chronic renal failure. Uncontrolled diabetes, hemoglobin A1c of 10.0. Debility. History of liver cirrhosis. PLAN: Home medication reviewed and reconciled. Hold blood pressure medications. We will follow up on the final blood culture results and decide if antibiotics is needed. Glucometer checks a.c./hs and cover with insulin per sliding scale protocol. We will monitor electrolytes. This case was reviewed and discussed with my supervising physician Dr. Carter and the above assessment and plan was formulated and agreed upon. ATTESTATION BY PHYSICIAN I have seen and examined the patient. I reviewed the documentation, medical decision making, and treatment plan as noted by the mid-level provider above. I agree with the findings and plan of care. BHARAT CARTER MD, [facility]IRTA [facility] Sep 05, 2025 15:07
[2025-09-05 16:00] VITALS: BP 137/84; PULSE 66; RESP 20; TEMP 97.9
[2025-09-05] MEDS: INSULIN GLARGINE 100 UNIT/ML SQ SCH (20:39)
[2025-09-05 20:47] VITALS: BP 139/60; PULSE 74; RESP 18; TEMP 98.2
[2025-09-05 23:54] VITALS: BP 130/67; PULSE 67; RESP 19; TEMP 98.2
[2025-09-06 03:45] VITALS: BP 144/74; PULSE 58; RESP 18; TEMP 97.9
[2025-09-06 07:45] VITALS: BP 131/61; PULSE 63; RESP 17; TEMP 98.3
[2025-09-06 08:23] VITALS: O2SAT 96
[2025-09-06] MEDS: ASPIRIN 81MG CHEW TAB PO SCH (08:23)
[2025-09-06 11:53] VITALS: BP 157/72; PULSE 59; RESP 18; TEMP 98.7
--- NOTE | 2025-09-06 14:05 | NUR ---
DISCHARGE PT AWARE TO FOLLOW UP WITH PCP WITHIN 3-5 DAYS. NO QUESTIONS AT THIS TIME.
--- NOTE | 2025-09-06 15:24 | DS ---
Discharge Summary Hospital Course FINAL DISCHARGE DIAGNOSIS: Gram-positive bacteremia possible a contaminant. Symptomatic hypotension. Acute on chronic renal failure. Uncontrolled diabetes, hemoglobin A1c of 10.0. Debility. History of liver cirrhosis. PLAN: Discharge patient to home today. Continue same home medications and resume blood pressure medications. Follow up with PCP in 3-5 days. This case was reviewed and discussed with my supervising physician Dr. Culp and the above assessment and plan was formulated and agreed upon. ATTESTATION BY PHYSICIAN I have seen and examined the patient. I reviewed the documentation, medical decision making, and treatment plan as noted by the mid-level provider above. I agree with the findings and plan of care. BHARAT CULP MD, [facility] Sep 06, 2025 15:24
== END 2025-09-06 14:05 | disposition home or self-care (01) | DRG 683 ==
LOC: EDH 11:52 → EDHIP 15:51 → 3BH 17:40
PROVIDERS: ADMIT Internal Medicine Infectious Disease; ATTEND Internal Medicine Infectious Disease
DX: N17.9 Acute kidney failure, unspecified (principal); E87.20 Acidosis, unspecified; R78.81 Bacteremia; E86.0 Dehydration; I95.9 Hypotension, unspecified; E11.649 Type 2 diabetes mellitus with hypoglycemia without coma; N18.9 Chronic kidney disease, unspecified; I12.9 Hypertensive chronic kidney disease with stage 1 through stage 4 chronic kidney disease, or unspecified chronic kidney disease; K74.60 Unspecified cirrhosis of liver; E11.22 Type 2 diabetes mellitus with diabetic chronic kidney disease; E03.9 Hypothyroidism, unspecified; B96.89 Other specified bacterial agents as the cause of diseases classified elsewhere; E11.65 Type 2 diabetes mellitus with hyperglycemia; E78.00 Pure hypercholesterolemia, unspecified; Z83.3 Family history of diabetes mellitus; Z86.73 Personal history of transient ischemic attack (TIA), and cerebral infarction without residual deficits; Z90.81 Acquired absence of spleen
CPT/HCPCS: 36415; 71045; 80048; 80053; 81003; 82948; 83036; 83605; 83735; 84484; 85025; 85027; 87040; 87086; 87186; 93005; 96374; 99285; G0378; J0696; J1650; J3490; J7070; J7131; Q0162

== ENCOUNTER 2025-09-08 13:32 | Emergency (ER) | payer OTHER ==
[~2025-09-08] VITALS: Ht 160 cm; Wt 61.7 kg
[~2025-09-08 13:32] MED LIST changes: -SEMA1PEN3 SQ
[2025-09-08 13:36] VITALS: BP 103/51; PULSE 50; RESP 18; TEMP 97
[2025-09-08] MEDS: 0.9%NACL 1000ML 1,000 ML IV STA (13:41)
--- NOTE | 2025-09-08 13:51 | ERN ---
ED Note History of Present Illness Stated Complaint: DIZZINESS Chief Complaint: Dizzy/Light Headed Time Seen by MD: 13:37 Time Seen by Midlevel: 13:40 Dictation: 75 year old female sent from office for low blood pressure. Patient states at the time of the blood pressure was low she felt dizzy however states dizziness has resolved at this time. Patient states she was recently here for similar complaints hours patient is now states she feels better when for follow up and was sent here to be re-evaluated. Patient denies having any fever, nausea or vomiting or diarrhea. Denies any numbness, tingling, unilateral weakness. Numbness, dizziness, blurry vision. NIH of 0 at this time. Allergies: Coded Allergies: No Allergy Information Available (Verified Allergy, Unknown, 06/20/16) lisinopril (Unverified Allergy, Unknown, 10/13/20) Home Meds Reported Medications Insulin Lispro (Humalog) 100 Unit/Ml Cartridge, 12 UNITS SQ BID, CARTRIDGE 02/03/25 Insulin Glargine,Hum.rec.anlog (Lantus Solostar) 100 Unit/Ml (3 Ml) Insuln.pen, 22 UNIT SQ HS for 30 Days, ML 0 Refills 02/03/25 Carvedilol (Carvedilol) 25 Mg Tablet, 1 TAB PO BID for 30 Days, #60 TAB 0 Refills 11/19/24 Omeprazole (Omeprazole) 20 Mg Capsule.dr, 1 CAP PO DAILY for 30 Days, #30 CAP 0 Refills 11/19/24 Amlodipine Besylate/Benazepril (Amlodipine-Benazepril 2.5-10) 2.5 Mg-10 Mg Capsule, 1 CAP PO DAILY for 30 Days, #30 CAP 0 Refills 11/19/24 Aspirin (ASPIRIN 81MG CHEW TAB) 81 Mg Tab.chew, 1 TAB PO DAILY for 30 Days, #30 TAB 0 Refills 11/19/24 Atorvastatin Calcium (Atorvastatin Calcium) 20 Mg Tablet, 10 MG PO HS for 30 Da ys, #30 TAB 0 Refills 11/19/24 Furosemide (Furosemide) 20 Mg Tablet, 20 MG PO QTUTHSA, TAB 11/19/24 Discontinued Reported Medications Semaglutide (Ozempic) 1 Mg/0.75 Ml (4 Mg/3 Ml) Pen.injctr, 1 MG SQ QWEEK for 30 Days, #3 ML 0 Refills 02/03/25 Past Medical History Past Medical History: Diabetes-Type II, High Cholesterol, Hypertension Additional Past Medical Hx: HYPERLIPIDEMIA Surgical History: Cholecystectomy, Other Surgical History Other: ABD SX Family History: Negative Social History: Negative History: Not Applicable Review of System Dictation Constitutional: Negative for fever,chills, and weight loss Eyes: Negative for injury, pain,redness, and discharge ENT: Negative for injury,pain or swelling Cardiovascular: Negative for chest pain, palpitations, and edema Respiratory: Negative for shortness of breath, cough, and wheezing, Abdomen/GI: Negative for abdominal pain, nausea, vomiting, diarrhea, and constipation Back: Negative for injury and pain : Negative for injury, bleeding and discharge MS/Extremity: Negative for injury and deformity Skin: Negative for rash, and discoloration Neuro: Negative for headache, weakness, numbness, tingling, and seizure Psych: Negative for suicide ideation, homicidal ideation, and hallucinations Review of Systems: was completed Initial Vital Sign VS Vital Signs Date Time Temp Pulse Resp B/P (MAP) Pulse Ox O2 Delivery O2 Flow Rate FiO2 09/08/25 13:36 97.0 50 18 103/51 98 Room Air 0 Physical Exam Dictation General: awake, alert, NAD Head/Face: Normocephalic, atraumatic Eyes: PERRL, EOMI, vision at baseline ENT: oral cavity clear, TMs clear, no signs of infection Neck: Trachea midline, supple, no nuchal rigidity Cardiovascular: RRR, normal S1/S2, No MRGs, no JVD Respiratory: CTAB, no respiratory distress, No rales or wheezes Abdomen: Soft, non-tender, non-distended, normal bowel sounds, no guarding or rebound. Skin: Warm, dry, normal turgor, no rash MS/Extremity: Pulses equal, no cyanosis, neurovascular intact, FROM Neuro: COAx4, GCS 15, strength 5/5, CN 2-12 intact, normal cerebellar exam, normal gait, Psych: Normal behavior, mood, and affect normal Results (Laboratory/Radiology) Laboratory/Radiology Laboratory Tests Test 09/08/25 13:56 White Blood Count 8.3 K/uL (4.8-10.8) Red Blood Count 3.63 MIL/uL (4.00-5.50) L Hemoglobin 11.6 g/dL (12.0-16.0) L Hematocrit 34.8 % (36-48) L Mean Corpuscular Volume 95.9 fL (79-99) Mean Corpuscular Hemoglobin 32.0 pg (27.0-33.0) Mean Corpuscular Hemoglobin Concent 33.3 g/dL (32.0-36.0) Red Cell Distribution Width 13.5 % (11.0-15.5) Platelet Count 223 K/uL (130-400) Mean Platelet Volume 9.9 fL (7.5-10.5) Immature Granulocyte % (Auto) 0.4 % (0-1) Neutrophils (%) (Auto) 52.3 % (40.0-77.0) Lymphocytes (%) (Auto) 31.3 % (21.0-51.0) Monocytes (%) (Auto) 8.2 % (3.0-13.0) Eosinophils (%) (Auto) 7.3 % (0.0-8.0) Basophils (%) (Auto) 0.5 % (0.0-5.0) Neutrophils # (Auto) 4.4 K/uL (1.8-7.7) Lymphocytes # (Auto) 2.6 K/uL (1.0-4.8) Monocytes # (Auto) 0.7 K/uL (0.1-1.0) Eosinophils # (Auto) 0.61 K/uL (0.00-0.70) Basophils # (Auto) 0.04 K/uL (0.00-0.20) Absolute Immature Granulocyte (auto 0.03 K/uL (0-1) Nucleated Red Blood Cells 0.0 % (0.0-0.19) Sodium Level 138 mmol/L (136-145) Potassium Level 3.8 mmol/L (3.5-5.1) Chloride Level 98 mmol/L (101-111) L Carbon Dioxide Level 30 mmol/L (21-32) Blood Urea Nitrogen 32 mg/dL (7-18) H Creatinine 2.2 mg/dL (0.5-1.0) H Glomerular Filtration Rate Calc 23 mL/min (>90) Random Glucose 222 mg/dL (70-105) H Total Calcium 9.0 mg/dL (8.5-10.1) Troponin I High Sensitivity 6 ng/L (4-50) Labs Reviewed?: Yes ED Course ED Course Orders Procedure Category Date Status Time Cbc With Differential LAB 09/08/25 Complete 13:41 Basic Metabolic Panel LAB 09/08/25 Complete 13:41 Urinalysis Profile LAB 09/08/25 Logged 13:41 Troponin I High LAB 09/08/25 Complete Sensitivity 13:41 12 Lead Ekg Tracing- EKG 09/08/25 Resulted Technical 13:41 0.9%Nacl 1000ml (Ns PHA 09/08/25 Complete 1000ml) 13:41 Current Medications Medications (Trade) Dose Ordered Sig/Juan David Route PRN Reason Start Time Stop Time Status Last Admin Dose Admin Sodium Chloride 1,000 ml @ 1,000 mls/hr Q1H STAT IV 09/08/25 13:41 09/08/25 14:40 DC Vital Signs Date Time Temp Pulse Resp B/P (MAP) Pulse Ox O2 Delivery O2 Flow Rate FiO2 09/08/25 13:36 97.0 50 18 103/51 98 Room Air 0 HEART Score Response (Comments) Value History: Low suspicion (0) 0 EKG: Normal 0 Age: > 65yrs (+2) 2 Risk Factors: 1-2 risk factors (+1) 1 Initial Troponin: Normal limit (0) 0 Total 3 Medical Decision Making MDM 75 year old female sent from office for low blood pressure. Patient states at the time of the blood pressure was low she felt dizzy however states dizziness has resolved at this time. Patient states she was recently here for similar complaints hours patient is now states she feels better when for follow up and was sent here to be re-evaluated. Patient denies having any fever, nausea or vomiting or diarrhea. Denies any numbness, tingling, unilateral weakness. Numbness, dizziness, blurry vision. NIH of 0 at this time. . BP in triage is 103 systolic. Chemistry shows no leukocytosis, mild anemia hemoglobin of 11 and hematocrit is 34. No thrombocytopenia. Chemistry shows elevated creatinine of2.2, however last admission was 1.4. Plan was to observe patient, reassessment give fluids as needed. attempted to reassess at 4:30 p.m. patient was not found. Patient called out a getting lobby at 5:00 p.m., patient not found. More than likely patient has a eloped from the ER lobby. DX & DISP Disposition: Discharge Departure Impression: Primary Impression: Eloped from emergency department Condition: Stable Referrals: CAROLEE CORDOBA MD (PCP) Time of Disposition: 17:08 I have reviewed the case, and I agree with, Diagnosis and Plan VIDHI DUNLAP Sep 08, 2025 13:50
[2025-09-08 14:03] LABS: IMMATURE GRANULOCYTE ABSOLUTE 0.03 K/uL (0-1); NUCLEATED RED BLOOD CELLS 0.0 % (0.0-0.19); PLATELET COUNT (AUTO) 223 K/uL (130-400); RED BLOOD CELL COUNT(AUTO) 3.63 MIL/uL (4.00-5.50); RED CELL DISTRIBUTION WIDTH 13.5 % (11.0-15.5); WHITE BLOOD COUNT (AUTO) 8.3 K/uL (4.8-10.8)
[2025-09-08 14:24] LABS: CREATININE 2.2 mg/dL (0.5-1.0); GLOMERULAR FILTR. RATE CALC 23.0 mL/min (>90); GLUCOSE,RANDOM 222.0 mg/dL (70-105); SODIUM SERUM 138.0 mmol/L (136-145); UREA NITROGEN, BLOOD 32.0 mg/dL (7-18)
--- NOTE | 2025-09-08 16:20 | EKG ---
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
== END 2025-09-08 15:43 | disposition left against medical advice (07) ==
LOC: EDH 13:32
DX: R42 Dizziness and giddiness (principal); E11.9 Type 2 diabetes mellitus without complications; E78.00 Pure hypercholesterolemia, unspecified; I10 Essential (primary) hypertension; E78.5 Hyperlipidemia, unspecified; Z79.899 Other long term (current) drug therapy; Z90.49 Acquired absence of other specified parts of digestive tract; Z88.8 Allergy status to other drugs, medicaments and biological substances; Z79.82 Long term (current) use of aspirin; Z79.4 Long term (current) use of insulin; Z79.85 Long-term (current) use of injectable non-insulin antidiabetic drugs
CPT/HCPCS: 36415; 80048; 84484; 85025; 93005; 99284

== ENCOUNTER 2025-10-17 11:57 | Emergency (ER) | payer OTHER ==
[~2025-10-17] VITALS: Ht 160 cm; Wt 65.1 kg
[2025-10-17 12:28] LABS: IMMATURE GRANULOCYTE ABSOLUTE 0.03 K/uL (0-1); NUCLEATED RED BLOOD CELLS 0.0 % (0.0-0.19); PLATELET COUNT (AUTO) 252 K/uL (130-400); RED BLOOD CELL COUNT(AUTO) 3.77 MIL/uL (4.00-5.50); RED CELL DISTRIBUTION WIDTH 13.9 % (11.0-15.5); WHITE BLOOD COUNT (AUTO) 6.4 K/uL (4.8-10.8)
[2025-10-17 12:39] LABS: CREATININE 1.5 mg/dL (0.5-1.0); GLOMERULAR FILTR. RATE CALC 36.0 mL/min (>90); GLUCOSE,RANDOM 329.0 mg/dL (70-105); SODIUM SERUM 132.0 mmol/L (136-145); UREA NITROGEN, BLOOD 21.0 mg/dL (7-18)
[2025-10-17 12:42] LABS: ADD UA MICROSCOPIC YES; APPEARANCE,URINE CLEAR (CLEAR); GLUCOSE, URINE (UA) >=1000 mg/dL (NEGATIVE); LEUKOCYTE ESTERASE ,URINE NEGATIVE Leu/uL (NEGATIVE); NITRATE,URINE NEGATIVE (NEGATIVE); OCCULT BLOOD,URINE NEGATIVE (NEGATIVE)
[2025-10-17 12:43] LABS: SQUAMOUS EPITHELIAL CELL,UR RARE /HPF (0-2)
--- NOTE | 2025-10-17 13:21 | HMCIMG ---
EXAM: CT Abdomen and Pelvis Without IV contrast CLINICAL HISTORY: l flank pain TECHNIQUE: Axial computed tomography images of the abdomen and pelvis without intravenous contrast. CONTRAST: No IV contrast. COMPARISON: None provided. FINDINGS: LUNG BASES: The lung bases appear clear. No pleural effusions are seen. LIVER: Unremarkable. GALLBLADDER AND BILE DUCTS: The gallbladder appears within normal limits. No radioopaque gallstones are seen. No biliary ductal dilatation is evident. PANCREAS: Unremarkable. SPLEEN: Partially infarcted spleen. ADRENAL GLANDS: Unremarkable. KIDNEYS, URETERS, AND BLADDER: No nephrolithiasis or hydroureter or hydronephrosis. Questionable soft tissue mass in the left kidney, midpole. This may just be a renal contour. Evaluation is Limited without the use of IV contrast. Consider renal mass MRI protocol. STOMACH AND BOWEL: Unremarkable appearance of the stomach and bowel. No evidence of bowel obstruction. No evidence suggesting enteritis or colitis. APPENDIX: Appendectomy. PERITONEUM: No free fluid. No free air. LYMPH NODES: No lymphadenopathy is evident. REPRODUCTIVE: Unremarkable as visualized. VASCULATURE: No evidence of abdominal aortic aneurysm. BONES: No aggressive appearing osseous lesion. No acute osseous pathology evident. IMPRESSION: No nephrolithiasis or hydroureter or hydronephrosis. Questionable soft tissue mass in the left kidney, midpole. This may just be a renal contour. Evaluation is Limited without the use of IV contrast. Consider renal mass MRI protocol. /[place]
--- NOTE | 2025-10-17 13:30 | NUR ---
PT REFUSED IV FLUIDS.
--- NOTE | 2025-10-17 13:34 | ERN ---
General Chief Complaint: Flank Pain Stated Complaint: LT FLANK PAIN Time Seen by MD: 13:34 Source: patient History of Present Illness Allergies: Coded Allergies: No Allergy Information Available (Verified Allergy, Unknown, 06/20/16) lisinopril (Unverified Allergy, Unknown, 10/13/20) Home Meds Reported Medications Insulin Lispro (Humalog) 100 Unit/Ml Cartridge, 12 UNITS SQ BID, CARTRIDGE 02/03/25 Insulin Glargine,Hum.rec.anlog (Lantus Solostar) 100 Unit/Ml (3 Ml) Insuln.pen, 22 UNIT SQ HS for 30 Days, ML 0 Refills 02/03/25 Carvedilol (Carvedilol) 25 Mg Tablet, 1 TAB PO BID for 30 Days, #60 TAB 0 Refills 11/19/24 Omeprazole (Omeprazole) 20 Mg Capsule.dr, 1 CAP PO DAILY for 30 Days, #30 CAP 0 Refills 11/19/24 Amlodipine Besylate/Benazepril (Amlodipine-Benazepril 2.5-10) 2.5 Mg-10 Mg Capsule, 1 CAP PO DAILY for 30 Days, #30 CAP 0 Refills 11/19/24 Aspirin (ASPIRIN 81MG CHEW TAB) 81 Mg Tab.chew, 1 TAB PO DAILY for 30 Days, #30 TAB 0 Refills 11/19/24 Atorvastatin Calcium (Atorvastatin Calcium) 20 Mg Tablet, 10 MG PO HS for 30 Days, #30 TAB 0 Refills 11/19/24 Furosemide (Furosemide) 20 Mg Tablet, 20 MG PO QTUTHSA, TAB 11/19/24 Past Medical History Past Medical History: Diabetes-Type II, High Cholesterol, Hypertension Medical History Other: HYPERLIPIDEMIA Past Surgical History: Cholecystectomy, Other Surgical History Other: SPLEENECTOMY Family History Family History: Negative Social History Social History: Negative Female( History) History: Not Applicable Results Laboratory and Microbiology Lab and Micro Result Laboratory Tests Test 10/17/25 12:00 10/17/25 12:14 Urine Color LIGHT-YELLOW (YELLOW) Urine Appearance CLEAR (CLEAR) Urine pH 5.5 (5.0-8.0) Urine Specific Carbon 1.027 (1.001-1.031) Urine Protein NEGATIVE mg/dL (NEGATIVE) Urine Glucose (UA) >=1000 mg/dL (NEGATIVE) H Urine Ketones NEGATIVE mg/dL (NEGATIVE) Urine Occult Blood NEGATIVE (NEGATIVE) Urine Nitrate NEGATIVE (NEGATIVE) Urine Bilirubin NEGATIVE mg/dL (NEGATIVE) Urine Urobilinogen 0.2 mg/dL (0.2-1.0) Urine Leukocyte Esterase NEGATIVE Yue/uL Urine RBC 0-1 /HPF (0-1) Urine WBC 0-1 /HPF (0-1) Urine Squamous Epithelial Cells RARE /HPF (0-2) Urine Bacteria None /HPF (None Seen) White Blood Count 6.4 K/uL (4.8-10.8) Red Blood Count 3.77 MIL/uL (4.00-5.50) L Hemoglobin 12.0 g/dL (12.0-16.0) Hematocrit 36.7 % (36-48) Mean Corpuscular Volume 97.3 fL (79-99) Mean Corpuscular Hemoglobin 31.8 pg (27.0-33.0) Mean Corpuscular Hemoglobin Concent 32.7 g/dL (32.0-36.0) Red Cell Distribution Width 13.9 % (11.0-15.5) Platelet Count 252 K/uL (130-400) Mean Platelet Volume 9.9 fL (7.5-10.5) Immature Granulocyte % (Auto) 0.5 % (0-1) Neutrophils (%) (Auto) 56.9 % (40.0-77.0) Lymphocytes (%) (Auto) 29.2 % (21.0-51.0) Monocytes (%) (Auto) 9.2 % (3.0-13.0) Eosinophils (%) (Auto) 3.6 % (0.0-8.0) Basophils (%) (Auto) 0.6 % (0.0-5.0) Neutrophils # (Auto) 3.7 K/uL (1.8-7.7) Lymphocytes # (Auto) 1.9 K/uL (1.0-4.8) Monocytes # (Auto) 0.6 K/uL (0.1-1.0) Eosinophils # (Auto) 0.23 K/uL (0.00-0.70) Basophils # (Auto) 0.04 K/uL (0.00-0.20) Absolute Immature Granulocyte (auto 0.03 K/uL (0-1) Nucleated Red Blood Cells 0.0 % (0.0-0.19) Sodium Level 132 mmol/L (136-145) L Potassium Level 4.4 mmol/L (3.5-5.1) Chloride Level 97 mmol/L (101-111) L Carbon Dioxide Level 26 mmol/L (21-32) Blood Urea Nitrogen 21 mg/dL (7-18) H Creatinine 1.5 mg/dL (0.5-1.0) H Glomerular Filtration Rate Calc 36 mL/min (>90) Random Glucose 329 mg/dL (70-105) H Total Calcium 8.8 mg/dL (8.5-10.1) ED Course Orders Procedure Category Date Status Time Cbc With Differential LAB 10/17/25 Complete 12:01 Basic Metabolic Panel LAB 10/17/25 Complete 12:01 Urinalysis Profile LAB 10/17/25 Complete 12:01 Ct Abdomen/Pelvis W/O CT 10/17/25 Resulted Contrast 12:01 Tramadol Hcl (Ultram) PHA 10/17/25 Complete 13:30 0.9%Nacl 1000ml (Ns PHA 10/17/25 Logged 1000ml) 13:33 Current Medications Medications (Trade) Dose Ordered Sig/Juan David Route PRN Reason Start Time Stop Time Status Last Admin Dose Admin Sodium Chloride 1,000 ml @ 500 mls/hr Q2H STAT IV 10/17/25 13:33 10/17/25 15:32 UNV Tramadol HCl (UltRAM) 50 mg ONCE ONCE PO 10/17/25 13:30 10/17/25 13:31 DC Vital Signs Date Time Temp Pulse Resp B/P (MAP) Pulse Ox O2 Delivery O2 Flow Rate FiO2 10/17/25 12:14 97.2 54 18 114/51 97 Room Air* 0 21 10/17/25 11:59 97.2 54 18 114/51 97 Room Air 0 DX & DISP Departure Impression: Primary Impression: Anemia of chronic renal failure, stage 3b Condition: Stable Referrals: CAROLEE OCRDOBA MD (PCP) ARVIN BHATTI MD Oct 17, 2025 13:34
--- NOTE | 2025-10-17 13:35 | ERN ---
ED Note History of Present Illness Stated Complaint: LT FLANK PAIN Chief Complaint: Flank Pain Time Seen by MD: 11:59 Time Seen by Midlevel: 12:05 Dictation: 75-year-old female with a history of hypertension, diabetes, cholesterol with complaints of left flank pain onset for two days. Patient denies any dysuria or hematuria. Denies any fever, nausea or vomiting or diarrhea. Any chest pain or chest discomfort. Allergies: Coded Allergies: No Allergy Information Available (Verified Allergy, Unknown, 06/20/16) lisinopril (Unverified Allergy, Unknown, 10/13/20) Home Meds Reported Medications Insulin Lispro (Humalog) 100 Unit/Ml Cartridge, 12 UNITS SQ BID, CARTRIDGE 02/03/25 Insulin Glargine,Hum.rec.anlog (Lantus Solostar) 100 Unit/Ml (3 Ml) Insuln.pen, 22 UNIT SQ HS for 30 Days, ML 0 Refills 02/03/25 Carvedilol (Carvedilol) 25 Mg Tablet, 1 TAB PO BID for 30 Days, #60 TAB 0 Refills 11/19/24 Omeprazole (Omeprazole) 20 Mg Capsule.dr, 1 CAP PO DAILY for 30 Days, #30 CAP 0 Refills 11/19/24 Amlodipine Besylate/Benazepril (Amlodipine-Benazepril 2.5-10) 2.5 Mg-10 Mg Capsule, 1 CAP PO DAILY for 30 Days, #30 CAP 0 Refills 11/19/24 Aspirin (ASPIRIN 81MG CHEW TAB) 81 Mg Tab.chew, 1 TAB PO DAILY for 30 Days, #30 TAB 0 Refills 11/19/24 Atorvastatin Calcium (Atorvastatin Calcium) 20 Mg Tablet, 10 MG PO HS for 30 Days, #30 TAB 0 Refills 11/19/24 Furosemide (Furosemide) 20 Mg Tablet, 20 MG PO QTUTHSA, TAB 11/19/24 Past Medical History Past Medical History: Diabetes-Type II, High Cholesterol, Hypertension Additional Past Medical Hx: HYPERLIPIDEMIA Surgical History: Cholecystectomy, Other Surgical History Other: SPLEENECTOMY Family History: Negative Social History: Negative History: Not Applicable Review of System Dictation Constitutional: Negative for fever,chills, and weight loss Eyes: Negative for injury, pain,redness, and discharge ENT: Negative for injury,pain or swelling Cardiovascular: Negative for chest pain, palpitations, and edema Respiratory: Negative for shortness of breath, cough, and wheezing, Abdomen/GI: Negative for abdominal pain, nausea, vomiting, diarrhea, and constipation Back: Negative for injury and pain : Negative for injury, bleeding and discharge, left flank pain MS/Extremity: Negative for injury and deformity Skin: Negative for rash, and discoloration Neuro: Negative for headache, weakness, numbness, tingling, and seizure Psych: Negative for suicide ideation, homicidal ideation, and hallucinations Review of Systems: was completed Initial Vital Sign VS Vital Signs Date Time Temp Pulse Resp B/P (MAP) Pulse Ox O2 Delivery O2 Flow Rate FiO2 10/17/25 11:59 97.2 54 18 114/51 97 Room Air 0 10/17/25 12:14 21 Physical Exam Dictation General: awake, alert, NAD Head/Face: Normocephalic, atraumatic Eyes: PERRL, EOMI, vision at baseline ENT: oral cavity clear, TMs clear, no signs of infection Neck: Trachea midline, supple, no nuchal rigidity Cardiovascular: RRR, normal S1/S2, No MRGs, no JVD Respiratory: CTAB, no respiratory distress, No rales or wheezes Abdomen: Soft, non-tender, non-distended, normal bowel sounds, no guarding or rebound. Skin: Warm, dry, normal turgor, no rash MS/Extremity: Pulses equal, no cyanosis, neurovascular intact, FROM Neuro: COAx4, GCS 15, strength 5/5, CN 2-12 intact, normal cerebellar exam, normal gait, Psych: Normal behavior, mood, and affect normal Results (Laboratory/Radiology) Laboratory/Radiology Laboratory Tests Test 10/17/25 12:00 10/17/25 12:14 Urine Color LIGHT-YELLOW (YELLOW) Urine Appearance CLEAR (CLEAR) Urine pH 5.5 (5.0-8.0) Urine Specific [place] 1.027 (1.001-1.031) Urine Protein NEGATIVE mg/dL (NEGATIVE) Urine Glucose (UA) >=1000 mg/dL (NEGATIVE) H Urine Ketones NEGATIVE mg/dL (NEGATIVE) Urine Occult Blood NEGATIVE (NEGATIVE) Urine Nitrate NEGATIVE (NEGATIVE) Urine Bilirubin NEGATIVE mg/dL (NEGATIVE) Urine Urobilinogen 0.2 mg/dL (0.2-1.0) Urine Leukocyte Esterase NEGATIVE Yue/uL Urine RBC 0-1 /HPF (0-1) Urine WBC 0-1 /HPF (0-1) Urine Squamous Epithelial Cells RARE /HPF (0-2) Urine Bacteria None /HPF (None Seen) White Blood Count 6.4 K/uL (4.8-10.8) Red Blood Count 3.77 MIL/uL (4.00-5.50) L Hemoglobin 12.0 g/dL (12.0-16.0) Hematocrit 36.7 % (36-48) Mean Corpuscular Volume 97.3 fL (79-99) Mean Corpuscular Hemoglobin 31.8 pg (27.0-33.0) Mean Corpuscular Hemoglobin Concent 32.7 g/dL (32.0-36.0) Red Cell Distribution Width 13.9 % (11.0-15.5) Platelet Count 252 K/uL (130-400) Mean Platelet Volume 9.9 fL (7.5-10.5) Immature Granulocyte % (Auto) 0.5 % (0-1) Neutrophils (%) (Auto) 56.9 % (40.0-77.0) Lymphocytes (%) (Auto) 29.2 % (21.0-51.0) Monocytes (%) (Auto) 9.2 % (3.0-13.0) Eosinophils (%) (Auto) 3.6 % (0.0-8.0) Basophils (%) (Auto) 0.6 % (0.0-5.0) Neutrophils # (Auto) 3.7 K/uL (1.8-7.7) Lymphocytes # (Auto) 1.9 K/uL (1.0-4.8) Monocytes # (Auto) 0.6 K/uL (0.1-1.0) Eosinophils # (Auto) 0.23 K/uL (0.00-0.70) Basophils # (Auto) 0.04 K/uL (0.00-0.20) Absolute Immature Granulocyte (auto 0.03 K/uL (0-1) Nucleated Red Blood Cells 0.0 % (0.0-0.19) Sodium Level 132 mmol/L (136-145) L Potassium Level 4.4 mmol/L (3.5-5.1) Chloride Level 97 mmol/L (101-111) L Carbon Dioxide Level 26 mmol/L (21-32) Blood Urea Nitrogen 21 mg/dL (7-18) H Creatinine 1.5 mg/dL (0.5-1.0) H Glomerular Filtration Rate Calc 36 mL/min (>90) Random Glucose 329 mg/dL (70-105) H Total Calcium 8.8 mg/dL (8.5-10.1) Labs Reviewed?: Yes CT Scan Comment: [facility] [address] [place] [address] IMAGING REPORT Signed PATIENT: ZARI POTTER MR#: [id number] : 1950 SEX: F AGE: 75 LOCATION: [facility] ORDER 120 STATUS: REG ER REPORT#: [id number] SERVICE 120 REASON: l flank pain ORDERING PHYSICIAN: VIDHI DUNLAP CNP PROCEDURE: ABD PEL WO - CT ABDOMEN/PELVIS W/O CONTRAST EXAM: CT Abdomen and Pelvis Without IV contrast CLINICAL HISTORY: l flank pain TECHNIQUE: Axial computed tomography images of the abdomen and pelvis without intravenous contrast. CONTRAST: No IV contrast. COMPARISON: None provided. FINDINGS: LUNG BASES: The lung bases appear clear. No pleural effusions are seen. LIVER: Unremarkable. GALLBLADDER AND BILE DUCTS: The gallbladder appears within normal limits. No radioopaque gallstones are seen. No biliary ductal dilatation is evident. PANCREAS: Unremarkable. SPLEEN: Partially infarcted spleen. ADRENAL GLANDS: Unremarkable. KIDNEYS, URETERS, AND BLADDER: No nephrolithiasis or hydroureter or hydronephrosis. Questionable soft tissue mass in the left kidney, midpole. This may just be a renal contour. Evaluation is Limited without the use of IV contrast. Consider renal mass MRI protocol. STOMACH AND BOWEL: Unremarkable appearance of the stomach and bowel. No evidence of bowel obstruction. No evidence suggesting enteritis or colitis. APPENDIX: Appendectomy. PERITONEUM: No free fluid. No free air. LYMPH NODES: No lymphadenopathy is evident. REPRODUCTIVE: Unremarkable as visualized. VASCULATURE: No evidence of abdominal aortic aneurysm. BONES: No aggressive appearing osseous lesion. No acute osseous pathology evident. IMPRESSION: No nephrolithiasis or hydroureter or hydronephrosis. Questionable soft tissue mass in the left kidney, midpole. This may just be a renal contour. Evaluation is Limited without the use of IV contrast. Consider renal mass MRI protocol. /Groom DICTATED BY: LULA RANDHAWA DO DATE: 10/17/251419 ELECTRONICALLY SIGNED BY: LULA RANDHAWA DO DATE: 10/17/25 142 ED Course ED Course Orders Procedure Category Date Status Time Cbc With Differential LAB 10/17/25 Complete 12:01 Basic Metabolic Panel LAB 10/17/25 Complete 12: Urinalysis Profile LAB 10/17/25 Complete 12:01 Ct Abdomen/Pelvis W/O CT 10/17/25 Resulted Contrast 12:01 Tramadol Hcl (Ultram) PHA 10/17/25 In Process 13:30 Current Medications Medications (Trade) Dose Ordered Sig/Juan David Route PRN Reason Start Time Stop Time Status Last Admin Dose Admin Tramadol HCl (UltRAM) 50 mg ONCE ONCE PO 10/17/25 13:30 10/17/25 13:31 Vital Signs Date Time Temp Pulse Resp B/P (MAP) Pulse Ox O2 Delivery O2 Flow Rate FiO2 10/17/25 12:14 97.2 54 18 114/51 97 Room Air* 0 21 10/17/25 11:59 97.2 54 18 114/51 97 Room Air 0 Medical Decision Making MDM MDM: 75-year-old female with a history of hypertension, diabetes, cholesterol with complaints of left flank pain onset for two days. Patient denies any dysuria or hematuria. Denies any fever, nausea or vomiting or diarrhea. Any chest pain or chest discomfort. CBC shows no leukocytosis, no anemia, no thrombocytopenia. Chemistry shows corrected sodium of 136. Mild hypochloremia. Elevated BUN and creatinine consistent with the patient's previous history. However this visits seems to be significantly better than previous. And hyperglycemia at 3:29 a.m.. Patient will be given fluids and medications to bring down the blood sugar. CT scan is showing no nephrolithiasis or hydroureter or hydronephrosis, questionable soft tissue mass in the left kidney mid pole, however this mass was also seen in the CT scan in 2015. Discussed findings with the patient educated she needs to follow up outpatient with the Urology and with PCP. Educated on signs and symptoms of when to return back to the ER. Differential diagnosis: Nephrolithiasis, urinary tract infection, pyelonephritis Rationale: Tests considered and ordered secondary to shared decision making i nclude: Previous outside records reviewed: Old ER visits. Risk of complication and/or morbidity or mortality of patient management: None Medications-Per medication reconciliation Need for hospitalization: Patient does not meet criteria for hospitalization. Need for emergency major/minor surgery: No There are no social concerns with this patient. Prescription drug management Prescriptions will include symptomatic care Patient's prior external medical records from other ER visits were reviewed by me as indicated. Prior testing and results from previous visits were reviewed. Prior tests were taken into account with medical decision making and resource utilization, independent historian/historians were used to obtain complete medical history. I independently interpreted the test that were performed, results were reviewed by me and considered findings on radiology if ordered. Medical management and examination interpretation discussions were had by me with other qualified healthcare professionals as indicated for the patient's care. DX & DISP Disposition: Discharge Departure Impression: Primary Impression: Uncontrolled diabetes mellitus Additional Impression: Flank pain Condition: Stable Additional Instructions: Follow up with your primary care provider. Take your diabetic medication as prescribed. Return to the hospital if you have any worsening symptoms. Referrals: CAROLEE CORDOBA MD (PCP) Time of Disposition: 13:34 I have reviewed the case, and I agree with, Diagnosis and Plan VIDHI DUNLAP [facility] Oct 17, 2025 13:35
[2025-10-17 13:38] VITALS: BP 125/46; PULSE 51; RESP 18; TEMP 97.2; O2SAT 97
[2025-10-17] MEDS: 0.9%NACL 1000ML 1,000 ML IV STA (13:48)
--- NOTE | 2025-10-17 14:02 | NUR ---
PT RECEIVED HER DISCHARGE DOCUMENTS. SHE WAS ADVISED TO CALL MEDICAL RECORDS FOR THE RELEASE OF HER CT RESULT. SHE AMBULATED TO DISCHARGE WITH A STEADY GAIT ACCOMPANIED BY HER .
== END 2025-10-17 14:01 | disposition home or self-care (01) ==
LOC: EDH 11:57
DX: E11.65 Type 2 diabetes mellitus with hyperglycemia (principal); R10.A2 Flank pain, left side; E78.00 Pure hypercholesterolemia, unspecified; I10 Essential (primary) hypertension; Z88.8 Allergy status to other drugs, medicaments and biological substances; Z79.899 Other long term (current) drug therapy; Z79.82 Long term (current) use of aspirin; Z79.4 Long term (current) use of insulin; Z90.49 Acquired absence of other specified parts of digestive tract; Z90.81 Acquired absence of spleen
CPT/HCPCS: 36415; 74176; 80048; 81001; 85025; 99284